=== PATIENT | female | born 1955 | race Caucasian/White ===

== ENCOUNTER → 2020-04-02 10:03 | Outpatient (BNVA) | payer MEDICARE, OTHER, MEDICAID, SELFPAY | PROVIDERS: PCP Internal Medicine; Visit Provider Hospitalist | DX: J43.2 Centrilobular emphysema (principal); R91.8 Other nonspecific abnormal finding of lung field; F17.200 Nicotine dependence, unspecified, uncomplicated | CPT/HCPCS: 99212 ==

== ENCOUNTER 2020-04-16 09:49 | Outpatient (REF) | payer MEDICARE, OTHER, MEDICAID, SELFPAY ==
--- NOTE | 2020-04-16 11:38 | PFT_ITS ---
Forced vital capacity moderately reduced. FEV1 and QQO79-96 are normal. MVV moderately reduced. Post bronchodilator therapy, there is a slight increase in VEE82-15. No other significant change. Total lung capacity is slightly decreased. Residual volume moderately decreased. Diffusion capacity also moderately decreased. CONCLUSION: Mild to moderate degree of restrictive pulmonary disorder. No definite obstructive airway disorder. Diffusion capacity is moderately decreased, probably due to restrictive disorder and some technical reason. Clinical correlation recommended. MD SANDRA Tan/MODL / [id number]
== END 2020-04-16 09:50 | disposition home or self-care (01) ==
LOC: HO.RESP 09:49
PROVIDERS: Visit Provider Hospitalist
DX: J44.9 Chronic obstructive pulmonary disease, unspecified (principal)
CPT/HCPCS: 94060; 94727; 94729

== ENCOUNTER → 2020-07-03 09:30 | Outpatient (BNVA) | payer MEDICARE, OTHER, MEDICAID, SELFPAY | PROVIDERS: PCP Internal Medicine; Visit Provider Hospitalist | DX: J43.2 Centrilobular emphysema (principal); J98.4 Other disorders of lung; R91.8 Other nonspecific abnormal finding of lung field; F17.200 Nicotine dependence, unspecified, uncomplicated; Z71.6 Tobacco abuse counseling; Z79.899 Other long term (current) drug therapy; Z79.51 Long term (current) use of inhaled steroids | CPT/HCPCS: 99212 ==

== ENCOUNTER → 2020-09-18 10:34 | Outpatient (BNVA) | payer MEDICARE, OTHER, MEDICAID, SELFPAY | PROVIDERS: PCP Internal Medicine; Visit Provider Hospitalist | DX: J98.4 Other disorders of lung (principal); J44.9 Chronic obstructive pulmonary disease, unspecified; R91.8 Other nonspecific abnormal finding of lung field; F17.200 Nicotine dependence, unspecified, uncomplicated | CPT/HCPCS: 99212 ==

== ENCOUNTER 2021-05-27 10:38 | Outpatient (REF) | payer MEDICARE, MEDICAID, SELFPAY ==
[2021-05-27 11:49] LABS: MANUAL DIFF FLAG NO
[2021-05-27 12:09] LABS: Basophils Percent Auto 0.4 % (0-2); Eosinophils Absolute Auto 0.2 X10*3/uL (0.0-0.4); Eosinophils Percent Auto 1.7 % (0-4); Hematocrit 37.7 % (37.0-47.0); Imm Gran Abs Auto 0.04 X10*3/uL (0.00-0.03); Imm Gran Pct Auto 0.4 % (0.0-0.4); Lymphocytes Absolute Auto 4.4 X10*3/uL (1.2-4.9); Lymphocytes Percent Auto 40.1 % (20-40); Mean Corpuscular HGB Conc 31.8 g/dl (31.0-35.0); Mean Corpuscular Hemoglobin 30.1 pg (27.0-33.0); Mean Corpuscular Volume 94.5 fL (80.0-98.0); Mean Platelet Volume 10.9 fL (9.4-12.3); Monocytes Absolute Auto 0.4 X10*3/uL (0.1-1.2); Neutrophils Absolute Auto 5.8 x10*3/uL (2.0-8.3); Neutrophils Percent Auto 53.4 % (45-73); Platelet Count 276 X10*3/uL (160-400); Red Blood Count 3.99 X10*6/uL (4.20-5.50); Red Cell Distribution Width 14.3 % (11.0-16.0); White Blood Count 10.9 X10*3/uL (4.8-10.8)
[2021-05-27 12:39] LABS: Troponin-I High Sensitivity < 3.5 ng/L (<3.5-17.0)
[2021-05-27 12:54] LABS: Anion Gap 14 (12-20); Blood Urea Nitrogen 20 mg/dL (9-16); Calcium 9.8 mg/dL (8.4-10.2); Carbon Dioxide 26 mmol/L (22-29); Chloride 108 mmol/L (96-108); Estimated Glomerular Filt Rate 44; Glucose Random 157 mg/dL (60-115); Potassium 4.7 mmol/L (3.3-5.1); Sodium 143 mmol/L (135-145)
[2021-05-27 13:44] LABS: Erythrocyte Sedimentation Rate 38 MM/HR (0-20)
[2021-05-28 10:22] LABS: Immunoglobulin E 184 kU/L (<OR=114)
[2021-06-02 04:07] LABS: SARS COV2 IgG Negative (Negative)
== END 2021-05-27 10:39 | disposition home or self-care (01) ==
LOC: HO.LAB 10:38
PROVIDERS: PCP Internal Medicine; Visit Provider Hospitalist
DX: R07.9 Chest pain, unspecified (principal); J44.9 Chronic obstructive pulmonary disease, unspecified; R91.8 Other nonspecific abnormal finding of lung field; J98.4 Other disorders of lung; F17.200 Nicotine dependence, unspecified, uncomplicated; Z71.6 Tobacco abuse counseling; Z20.822 Contact with and (suspected) exposure to COVID-19
CPT/HCPCS: 36415; 80048; 82785; 84484; 85025; 85652; 86769; 99212

== ENCOUNTER → 2021-09-08 15:04 | Outpatient (BNVA) | payer MEDICARE, MEDICAID, SELFPAY | PROVIDERS: PCP Internal Medicine; Visit Provider Hospitalist | DX: J44.9 Chronic obstructive pulmonary disease, unspecified (principal); U07.1 COVID-19; J98.4 Other disorders of lung; R19.8 Other specified symptoms and signs involving the digestive system and abdomen; F17.200 Nicotine dependence, unspecified, uncomplicated | CPT/HCPCS: Q3014 ==

== ENCOUNTER → 2021-11-12 11:21 | Outpatient (BNVA) | payer MEDICARE, OTHER, MEDICAID, SELFPAY | PROVIDERS: PCP Internal Medicine; Visit Provider Hospitalist | DX: J44.9 Chronic obstructive pulmonary disease, unspecified (principal); J98.4 Other disorders of lung; R91.8 Other nonspecific abnormal finding of lung field; F17.200 Nicotine dependence, unspecified, uncomplicated; Z86.16 Personal history of COVID-19; Z79.899 Other long term (current) drug therapy | CPT/HCPCS: 99212 ==

== ENCOUNTER 2022-01-14 13:49 | Outpatient (REF) | payer MEDICARE, OTHER, MEDICAID, SELFPAY ==
--- NOTE | ~2022-01-14 | XR_ITS ---
EXAMINATION: XR CHEST CLINICAL INFORMATION: J40 - Bronchitis, not specified as acute or chronic COMPARISON: None TECHNIQUE: 2 views of the chest were obtained. FINDINGS: There is mild coarsening of the bronchiolar markings consistent with the clinical history bronchitis. No hyperinflation, airspace consolidation, or groundglass opacity. The costophrenic sulci are clear. No effusion. Heart size normal. Vascularity normal. The hilar and mediastinal contours are unremarkable. There is no visible acute bony abnormality. There is been prior anterior cervical fusion with compression plate and screws. XR/XR chest 2V IMPRESSION: 1. Mild coarsening bronchiolar markings consistent with clinical history bronchitis. 2. No airspace consolidation or groundglass opacity.
== END 2022-01-14 13:50 | disposition home or self-care (01) ==
LOC: HO.XRAY 13:49
PROVIDERS: PCP Internal Medicine; Visit Provider Internal Medicine
DX: J44.1 Chronic obstructive pulmonary disease with (acute) exacerbation (principal); J40 Bronchitis, not specified as acute or chronic; F17.210 Nicotine dependence, cigarettes, uncomplicated; G47.33 Obstructive sleep apnea (adult) (pediatric); E66.9 Obesity, unspecified; Z79.2 Long term (current) use of antibiotics; Z79.899 Other long term (current) drug therapy
CPT/HCPCS: 71046; 99212

== ENCOUNTER → 2022-01-22 10:24 | Outpatient (BNVA) | payer MEDICARE, OTHER, MEDICAID, SELFPAY | PROVIDERS: PCP Internal Medicine; Visit Provider Hospitalist | DX: J40 Bronchitis, not specified as acute or chronic (principal); J44.1 Chronic obstructive pulmonary disease with (acute) exacerbation; J01.90 Acute sinusitis, unspecified; F17.200 Nicotine dependence, unspecified, uncomplicated | CPT/HCPCS: 99212 ==

== ENCOUNTER → 2022-03-23 09:49 | Outpatient (BNVA) | payer MEDICARE, OTHER, MEDICAID, SELFPAY | PROVIDERS: PCP Internal Medicine; Visit Provider Hospitalist | DX: J44.9 Chronic obstructive pulmonary disease, unspecified (principal); R91.8 Other nonspecific abnormal finding of lung field; F17.210 Nicotine dependence, cigarettes, uncomplicated | CPT/HCPCS: 99212 ==

== ENCOUNTER → 2022-06-23 09:45 | Outpatient (BNVA) | payer MEDICARE, OTHER, MEDICAID, SELFPAY | PROVIDERS: PCP Internal Medicine; Visit Provider Hospitalist | DX: J44.9 Chronic obstructive pulmonary disease, unspecified (principal); R91.8 Other nonspecific abnormal finding of lung field; G47.33 Obstructive sleep apnea (adult) (pediatric); F17.210 Nicotine dependence, cigarettes, uncomplicated | CPT/HCPCS: 99212 ==

== ENCOUNTER → 2022-07-07 13:59 | Outpatient (REF) | payer MEDICARE, OTHER, MEDICAID, SELFPAY | LOC: HO.SL 13:59 | PROVIDERS: PCP Internal Medicine; Visit Provider Hospitalist | DX: G47.33 Obstructive sleep apnea (adult) (pediatric) (principal) | CPT/HCPCS: 95806 ==

== ENCOUNTER 2022-09-07 10:48 | Outpatient (REF) | payer MEDICARE, OTHER, MEDICAID, SELFPAY ==
--- NOTE | ~2022-09-07 | XR_ITS ---
EXAMINATION: XR CHEST CLINICAL INFORMATION: Bronchitis COMPARISON: None available. TECHNIQUE: 2 views of the chest were obtained. FINDINGS: The cardiac and mediastinal contours are normal. The lungs are clear. No pleural effusion or pneumothorax. Postsurgical changes to the cervical spine. Mild degenerative changes of the thoracic spine. XR/XR chest 2V IMPRESSION: No evidence for acute disease in the chest.
== END 2022-09-07 10:49 | disposition home or self-care (01) ==
LOC: HO.XRAY 10:48
PROVIDERS: PCP Internal Medicine; Visit Provider Hospitalist
DX: J40 Bronchitis, not specified as acute or chronic (principal)
CPT/HCPCS: 71046

== ENCOUNTER → 2022-09-22 13:46 | Outpatient (BNVA) | payer MEDICARE, OTHER, MEDICAID, SELFPAY | PROVIDERS: PCP Internal Medicine; Visit Provider Hospitalist | DX: J44.9 Chronic obstructive pulmonary disease, unspecified (principal); R91.8 Other nonspecific abnormal finding of lung field; G47.33 Obstructive sleep apnea (adult) (pediatric); F17.210 Nicotine dependence, cigarettes, uncomplicated; Z79.899 Other long term (current) drug therapy | CPT/HCPCS: 99212 ==

== ENCOUNTER 2023-03-05 10:51 | Outpatient (AMB) | payer MEDICARE, OTHER, MEDICAID, SELFPAY ==
--- NOTE | 2023-03-05 10:53 | A.OFFVIS_ITS ---
Intake Vital Signs 03/05/23 10:58 Height 5 ft 4 in Weight 178 lb BMI 30.6 BP 110/60 Blood Pressure Location Lt brachial Position Sitting Pulse 72 Pulse Source Pulse Oximeter Pulse Oximetry (%) 98 Oxygen Delivery Method Room Air Intake Visit Reasons: COPD Intake Note: pt is here for follow up and is coughing and wheezing. Allergies acetaminophen [Tylenol] Allergy (Severe, Verified 03/05/23 11:01) Rash and Hives oxycodone [Percocet] Allergy (Severe, Verified 03/05/23 11:01) Rash and Hives penicillin V Allergy (Severe, Verified 03/05/23 11:01) Rash and Hives Sulfa (Sulfonamide Antibiotics) Allergy (Severe, Verified 03/05/23 11:01) Rash and Hives trazodone Allergy (Severe, Verified 03/05/23 11:01) Rash and Hives Erythromycin Allergy (Severe, Uncoded 03/05/23 11:01) Rash and Hives latex Allergy (Severe, Uncoded 03/05/23 11:01) Rash and Hives Proventil Allergy (Severe, Uncoded 03/05/23 11:01) Rash and Hives HPI HPI Comments History of Present Illness Details The patient is a 67 year-old woman with known COPD and tobacco dependency. She continues to smoke and actually she has been smoking more. She is very depressed. She feels like it inhalers are not working for her. Although she notes that the smoking is only making it worse. The patient is also reluctant to use any oxygen. She has been complaining of a productive cough and multiple exacerbations her breathing she has chronic bronchitis with significant exacerbations in prednisone. The patient however has a bad reaction to prednisone. Therefore she will be a good candidate for Daliresp. We will start the Daliresp every other day and hopefully then she can take a daily when she gets used to it. She did move in with her son and kline she is there she can't smoke. Since she stop smoking her respiratory status has improved. She still has a cough off and on. More recently she did fall down the stairs and she fractured her wrist on her right side. She is currently has a cast down. She is not sure if she is going to need surgery. She is asking for a nicotine patch to help with withdrawals. She also was prescribed Daliresp as she has good candidate, but, she was not at the pharmacy. Therefore I recent a prescription and also gave her a paper prescription just in case.. 03/23/2022 the patient is here for a pulmonary follow-up visit. Overall she is getting better. She had tough viral bronchitis and likely bronchiolitis after her son's wedding. The last for several weeks. She did require multiple courses of prednisone and also antibiotics. Finally she is better although she still has a cough. The cough tends to be croupy in nature. Sometimes she has a coughing spell is hard to break. She does have intermittent mucus production. Unfortunately she continues to smoke cigarettes and she understands this will result in chronic bronchitis. She continues use the Trelegy with good effect. She is also using the Daliresp. That also has been helpful. She has been working on weight loss. She is participating in the lung cancer screening program. Her last CT scan was the fall. This was done at [facility]. She was told that everything was stable. Scheduled for another CT scan in a year's time. We will request a CT scan from [facility]. 06/23/2022 the patient is here for a pulmonary follow-up visit. She was recently hospitalized in psychiatry at [facility] after a question suicidal attempt. The patient was found unresponsive after taking sleeping pills. Now she is back home. The patient does complaint of daytime drowsiness. She has hard time sleeping. She did have sleep apnea before and she had been on CPAP. However she no longer has a CPAP available. The patient has not had a sleep study many years. She continues to be symptomatic with daytime drowsiness with an Trezevant score of 11/24. Therefore I will request a repeat sleep study hope to get her back on CPAP therapy and help her with her sleep-wake cycle. She continues use her medications. Unfortunately she also continues to smoke cigarettes. She responds well to Trelegy. This morning she woke up and she felt some chest tightness and wheezing. She has not use her Trelegy as of yet. She will take it when she goes home. She is also participating in the lung cancer screening program. Her last CT scan at [facility] demonstrating stable pulmonary nodules. 09/22/2022 the patient is here for a pulmonary follow-up visit. The patient is finally feeling better. She had pneumonia and required a long course of prednisone. The patient had a follow-up chest x-ray which I personally reviewed without any evidence of any airspace disease which is reassuring. The patient is back to her baseline. She continues on the Trelegy. She has been monitoring her weight and her diet. She is doing very well good losing weight. She does have daytime drowsiness. She has an elevated Trezevant score 11/24. We did review her home sleep study demonstrating an AHI of 22 suggestive of moderate to severe sleep apnea. The patient needs to go back on CPAP. The patient is agreeable at this time and I will send a script for CPAP to a local [employer]. 03/05/2023 the patient is here for a pulmonary follow-up visit. The patient has been having difficulties with her sleep. Has significant daytime drowsiness. Her Trezevant score significantly elevated 11/24. Apparently she had been on CPAP before but her CPAP broke beyond repair. Therefore she has not been able to use it. We have requested a replacement machine during the last visit but the patient did not receive any replacement. I did reach out to the [employer] company and they will see what they can do. The patient needs to start her CPAP therapy specially with her increased cardiovascular risk factors. She continues use her Trelegy inhaler which she is been affecting beneficial. The patient has not required any prednisone. She does use her rescue inhaler on a daily basis however. She also has chest congestion. Ksga-fo-oawvjslv severity. Unfortunately the patient continues to smoke cigarettes. She is participating in the lung cancer screening program. [facility] Medical History (Updated 06/23/22 @ 10:08 by Felipe Lopez MD) SRIDEVI (obstructive sleep apnea) Bronchitis COPD exacerbation Tobacco dependence Chronic restrictive lung disease Asthma-COPD overlap syndrome Asthma Tobacco dependence Pulmonary nodules COPD (chronic obstructive pulmonary disease) Family History (Updated 04/02/20 @ 20:41 by Felipe Lopez MD) Other Asthma Social History (Updated 03/05/23 @ 11:02 by FABRIZIO Gamino) Patient Tobacco Use Status: Current everyday Tobacco user Cigarette Packs Per Day: 0.5 Cigarettes Per Day: 3 Years Smoked: 30 years Review of Systems Const Reports daytime sleepiness, Reports difficulty sleeping, Denies fever(s), Denies night sweats and Reports snoring Eyes Denies change in vision ENT Denies change in voice, Denies lip swelling, Denies mouth pain, Reports nasal congestion (MILD), Reports nasal discharge (MILD), Denies neck pain, Denies sinus pain and Denies tongue swelling Card Denies chest pain, Denies irregular heart rhythm, Denies leg edema and Denies dyspnea Resp Denies chest congestion, Reports cough, Denies hemoptysis, Denies dyspnea, Reports snoring and Denies wheezing GI Denies abdominal pain Musc Denies no additional complaints and Denies neck pain Neuro Denies Neuro-related abnormal movements Psych Reports as per HPI Alvaro/Lymph Denies easy bleeding and Denies lymphadenopathy Aller/Immun Denies lip swelling, Denies tongue swelling and Denies wheezing Physical Exam Vital Signs: Last Vital Signs Pulse 72 03/05/23 10:58 BP 110/60 03/05/23 10:58 Pulse Ox 98 03/05/23 10:58 Oxygen Delivery Method Room Air 03/05/23 10:58 BMI result Body Mass Index 30.6 Const General: alert Orientation/consciousness: patient oriented x3 Neck Neck: Yes normal visual inspection, Yes full ROM and Yes no lymphadenopathy Chest Chest palpation & inspection: normal inspection of the chest Resp Effort & Inspection: normal respiratory effort Auscultation: no rhonchi, no wheezes and diminished lung sounds Cardio Rate: regular rate Rhythm: regular rhythm Heart sounds: S1 normal heart sound present and S2 normal heart sound present GI Palpation (GI): Soft to palpation and nontender Auscultation: normal bowel sounds Skin General skin exam: rashes and/or lesions noted Neuro General: patient oriented x3 Office Procedures Flu Questionnaire Does the patient have a severe egg allergy?: No Does the patient have severe life threatening allergies?: No Does the patient have a fever or illness today?: No Has the patient ever had Guillain-Wallace Syndrome?: No Has the patient ever had any past reaction to a flu shot?: No Immunizations flu vacc [id number] 6mos up(PF) 60 mcg(15 mcgx4)/0.5 mL IM syringe Performing Provider: Felipe Lopez MD Performing Location: [facility] Administered by: Lala Guajardo LPN on 03/05/23 11:20 Dose Route Admin Location Dispensed Lot Number Expiration Date NDC Installation Specialist 0.5 mL IM Right Deltoid 0.5 mL [id number] 10/03/23 56933-176-86 [employer] VIS Given Date VIS Provided VIS Publication Date 03/05/23 Single Vaccine 20 Eligibility Eligibility Date Funding Source Not VF Eligible 03/05/23 Private Assessment & Plan Assessment & Plan (1) Asthma-COPD overlap syndrome: Code(s): J44.9 - Chronic obstructive pulmonary disease, unspecified (2) Pulmonary nodules: Code(s): R91.8 - Other nonspecific abnormal finding of lung field (3) SRIDEVI (obstructive sleep apnea): Code(s): G47.33 - Obstructive sleep apnea (adult) (pediatric) (4) Tobacco dependence: Code(s): F17.200 - Nicotine dependence, unspecified, uncomplicated Plan Tobacco cessation continue Trelegy continue xopenex nebs BID continue Daliresp benzonates as needed for cough start APAP, needs a replacement APAP. Her machine is broken beyond repeair. F/U 4-6 months Orders: Orders Influenza [id number] Immunization 03/05/23 J44.9 - Chronic obstructive pulmonary disease, unspecified Quality Reporting (2019) Adult ([facility] 138/05/27/68) Smoking risk assessment performed?: Yes Patient Tobacco Use Status: Current everyday Tobacco user Coding Level of Care Code Est Pt Level 4 (61746) Diagnoses Asthma-COPD overlap syndrome J44.9 Pulmonary nodules R91.8 SRIDEVI (obstructive sleep apnea) G47.33 Tobacco dependence F17.200 Time Spent (min) 17
[2023-03-05 10:58] VITALS: BP 110/60; PULSE 72; O2SAT 98; BMI 30.6
== END 2023-03-05 11:18 | disposition home or self-care (01) ==
PROVIDERS: PCP Internal Medicine; Visit Provider Hospitalist
DX: J44.9 Chronic obstructive pulmonary disease, unspecified (principal); R91.8 Other nonspecific abnormal finding of lung field; G47.33 Obstructive sleep apnea (adult) (pediatric); F17.200 Nicotine dependence, unspecified, uncomplicated
CPT/HCPCS: 99214

== ENCOUNTER → 2023-03-05 10:51 | Outpatient (BNVA) | payer MEDICARE, OTHER, MEDICAID, SELFPAY | PROVIDERS: PCP Internal Medicine; Visit Provider Hospitalist | DX: Z23 Encounter for immunization (principal); J44.9 Chronic obstructive pulmonary disease, unspecified; G47.33 Obstructive sleep apnea (adult) (pediatric); R91.8 Other nonspecific abnormal finding of lung field; F17.210 Nicotine dependence, cigarettes, uncomplicated | CPT/HCPCS: 90471; 90686; 99212 ==

== ENCOUNTER 2023-04-02 12:44 | Outpatient (REF) | payer MEDICARE, OTHER, MEDICAID, SELFPAY ==
--- NOTE | ~2023-04-02 | XR_ITS ---
EXAMINATION: XR CHEST CLINICAL INFORMATION: Pleurodynia. COMPARISON: September 07, 2022 TECHNIQUE: 2 views of the chest were obtained. FINDINGS: There is no gross pneumothorax. Heart size is normal. No pleural effusion. Increased retrocardiac opacities are concerning for pneumonia. Fixation hardware redemonstrated in the partially imaged cervical spine. XR/XR chest 2V IMPRESSION: Increased retrocardiac opacities are concerning for pneumonia. Recommend follow-up imaging in 4-6 weeks to confirm resolution and exclude underlying pathology. This study was presented today April 2023 at 9:40 AM for interpretation. PSA staff will provide results to referring provider at this time.
[2023-04-02 14:46] LABS: Influenza A PCR NEGATIVE (Negative); Influenza B PCR NEGATIVE (Negative); Resp Syncy Virus RNA Qual PCR NEGATIVE (Negative); SARS COV2 PCR INHOUSE NEGATIVE (Negative)
== END 2023-04-02 12:45 | disposition home or self-care (01) ==
LOC: HO.XRAY 12:44
PROVIDERS: PCP Internal Medicine; Visit Provider Hospitalist
DX: Z11.52 Encounter for screening for COVID-19 (principal); R07.81 Pleurodynia; J40 Bronchitis, not specified as acute or chronic; Z20.822 Contact with and (suspected) exposure to COVID-19; J18.0 Bronchopneumonia, unspecified organism; J44.9 Chronic obstructive pulmonary disease, unspecified; R91.8 Other nonspecific abnormal finding of lung field
CPT/HCPCS: 0241U; 71046; 99212

== ENCOUNTER 2023-04-02 12:44 | Outpatient (AMB) | payer MEDICARE, OTHER, MEDICAID, SELFPAY ==
--- NOTE | 2023-04-02 12:55 | MHC.OFFVIS ---
Intake Vital Signs 04/02/23 12:57 Height 5 ft 4 in Weight 183 lb BMI 31.4 BP 132/70 Blood Pressure Location Rt brachial Position Sitting Pulse 89 Pulse Source Pulse Oximeter Pulse Oximetry (%) 99 Oxygen Delivery Method Room Air Intake Visit Reasons: cough and shortness of breath Apartment Assistant Manager Required: No Allergies acetaminophen [Tylenol] Allergy (Severe, Verified 04/02/23 13:00) Rash and Hives oxycodone [Percocet] Allergy (Severe, Verified 04/02/23 13:00) Rash and Hives penicillin V Allergy (Severe, Verified 04/02/23 13:00) Rash and Hives Sulfa (Sulfonamide Antibiotics) Allergy (Severe, Verified 04/02/23 13:00) Rash and Hives trazodone Allergy (Severe, Verified 04/02/23 13:00) Rash and Hives Erythromycin Allergy (Severe, Uncoded 04/02/23 13:00) Rash and Hives latex Allergy (Severe, Uncoded 04/02/23 13:00) Rash and Hives Proventil Allergy (Severe, Uncoded 04/02/23 13:00) Rash and Hives HPI HPI Comments History of Present Illness Details The patient is a 67 year-old woman with known COPD and tobacco dependency. She continues to smoke and actually she has been smoking more. She is very depressed. She feels like it inhalers are not working for her. Although she notes that the smoking is only making it worse. The patient is also reluctant to use any oxygen. She has been complaining of a productive cough and multiple exacerbations her breathing she has chronic bronchitis with significant exacerbations in prednisone. The patient however has a bad reaction to prednisone. Therefore she will be a good candidate for Daliresp. We will start the Daliresp every other day and hopefully then she can take a daily when she gets used to it. She did move in with her son and kline she is there she can't smoke. Since she stop smoking her respiratory status has improved. She still has a cough off and on. More recently she did fall down the stairs and she fractured her wrist on her right side. She is currently has a cast down. She is not sure if she is going to need surgery. She is asking for a nicotine patch to help with withdrawals. She also was prescribed Daliresp as she has good candidate, but, she was not at the pharmacy. Therefore I recent a prescription and also gave her a paper prescription just in case.. 03/23/2022 the patient is here for a pulmonary follow-up visit. Overall she is getting better. She had tough viral bronchitis and likely bronchiolitis after her son's wedding. The last for several weeks. She did require multiple courses of prednisone and also antibiotics. Finally she is better although she still has a cough. The cough tends to be croupy in nature. Sometimes she has a coughing spell is hard to break. She does have intermittent mucus production. Unfortunately she continues to smoke cigarettes and she understands this will result in chronic bronchitis. She continues use the Trelegy with good effect. She is also using the Daliresp. That also has been helpful. She has been working on weight loss. She is participating in the lung cancer screening program. Her last CT scan was the fall. This was done at [facility]. She was told that everything was stable. Scheduled for another CT scan in a year's time. We will request a CT scan from [facility]. 06/23/2022 the patient is here for a pulmonary follow-up visit. She was recently hospitalized in psychiatry at [facility] after a question suicidal attempt. The patient was found unresponsive after taking sleeping pills. Now she is back home. The patient does complaint of daytime drowsiness. She has hard time sleeping. She did have sleep apnea before and she had been on CPAP. However she no longer has a CPAP available. The patient has not had a sleep study many years. She continues to be symptomatic with daytime drowsiness with an [place] score of 11/24. Therefore I will request a repeat sleep study hope to get her back on CPAP therapy and help her with her sleep-wake cycle. She continues use her medications. Unfortunately she also continues to smoke cigarettes. She responds well to Trelegy. This morning she woke up and she felt some chest tightness and wheezing. She has not use her Trelegy as of yet. She will take it when she goes home. She is also participating in the lung cancer screening program. Her last CT scan at [facility] demonstrating stable pulmonary nodules. 09/22/2022 the patient is here for a pulmonary follow-up visit. The patient is finally feeling better. She had pneumonia and required a long course of prednisone. The patient had a follow-up chest x-ray which I personally reviewed without any evidence of any airspace disease which is reassuring. The patient is back to her baseline. She continues on the Trelegy. She has been monitoring her weight and her diet. She is doing very well good losing weight. She does have daytime drowsiness. She has an elevated [place] score 11/24. We did review her home sleep study demonstrating an AHI of 22 suggestive of moderate to severe sleep apnea. The patient needs to go back on CPAP. The patient is agreeable at this time and I will send a script for CPAP to a local [employer]. 03/05/2023 the patient is here for a pulmonary follow-up visit. The patient has been having difficulties with her sleep. Has significant daytime drowsiness. Her [place] score significantly elevated 11/24. Apparently she had been on CPAP before but her CPAP broke beyond repair. Therefore she has not been able to use it. We have requested a replacement machine during the last visit but the patient did not receive any replacement. I did reach out to the [employer] company and they will see what they can do. The patient needs to start her CPAP therapy specially with her increased cardiovascular risk factors. She continues use her Trelegy inhaler which she is been affecting beneficial. The patient has not required any prednisone. She does use her rescue inhaler on a daily basis however. She also has chest congestion. Gyss-vb-ybmkjhct severity. Unfortunately the patient continues to smoke cigarettes. She is participating in the lung cancer screening program. 04/02/2023 The patient is here for a sick visit. + sick contacts. Has been having worsening cough, productive in nature, moderate in severity. Having worsening chest tightness and wheezing. Not responding to her current therapy. Does have some crackles on the left base suggesting pneumonia. She andrea have a CXR today. She completed the prednioane, wheezing is better. [facility] Medical History (Updated 04/05/23 @ 19:18 by Felipe Lopez MD) SRIDEVI (obstructive sleep apnea) Bronchitis COPD exacerbation Tobacco dependence Chronic restrictive lung disease Asthma-COPD overlap syndrome Asthma Tobacco dependence Pulmonary nodules COPD (chronic obstructive pulmonary disease) Family History (Updated 04/02/20 @ 20:41 by Felipe Lopez MD) Other Asthma Social History (Updated 03/05/23 @ 11:02 by FABRIZIO Gamino) Patient Tobacco Use Status: Current everyday Tobacco user Cigarette Packs Per Day: 0.5 Cigarettes Per Day: 3 Years Smoked: 30 years Review of Systems Const Reports chills, Reports difficulty sleeping, Reports fatigue, Denies fever(s), Denies night sweats and Reports snoring Eyes Denies change in vision ENT Denies change in voice, Denies lip swelling, Denies mouth pain, Reports nasal congestion (MILD), Reports nasal discharge (MILD), Denies neck pain, Denies sinus pain and Denies tongue swelling Card Denies chest pain, Denies irregular heart rhythm, Denies leg edema and Denies dyspnea Resp Reports change in phlegm color, Reports chest congestion, Reports cough, Denies hemoptysis, Denies dyspnea, Reports snoring and Reports wheezing GI Denies abdominal pain Musc Denies no additional complaints and Denies neck pain Neuro Denies Neuro-related abnormal movements Psych Reports as per HPI Endo Reports fatigue Alvaro/Lymph Denies easy bleeding and Denies lymphadenopathy Aller/Immun Denies lip swelling, Denies tongue swelling and Reports wheezing Physical Exam Vital Signs: Last Vital Signs Pulse 89 04/02/23 12:57 BP 132/70 04/02/23 12:57 Pulse Ox 99 04/02/23 12:57 Oxygen Delivery Method Room Air 04/02/23 12:57 BMI result Body Mass Index 31.4 Const General: alert Orientation/consciousness: patient oriented x3 Neck Neck: Yes normal visual inspection, Yes full ROM and Yes no lymphadenopathy Chest Chest palpation & inspection: normal inspection of the chest Resp Effort & Inspection: normal respiratory effort Auscultation: crackles, no rhonchi, no wheezes and diminished lung sounds Cardio Rate: regular rate Rhythm: regular rhythm Heart sounds: S1 normal heart sound present and S2 normal heart sound present GI Palpation (GI): Soft to palpation and nontender Auscultation: normal bowel sounds Skin General skin exam: rashes and/or lesions noted Neuro General: patient oriented x3 Assessment & Plan Assessment & Plan (1) Bronchopneumonia: Code(s): J18.0 - Bronchopneumonia, unspecified organism (2) Asthma-COPD overlap syndrome: Code(s): J44.9 - Chronic obstructive pulmonary disease, unspecified (3) Pulmonary nodules: Code(s): R91.8 - Other nonspecific abnormal finding of lung field (4) SRIDEVI (obstructive sleep apnea): Code(s): G47.33 - Obstructive sleep apnea (adult) (pediatric) (5) Tobacco dependence: Code(s): F17.200 - Nicotine dependence, unspecified, uncomplicated Plan start Vantin/doxycycline Prednisone taper if no better CXR Swab FLU/RSV/SARS negative Tobacco cessation continue Trelegy continue xopenex nebs BID continue Daliresp benzonates as needed for cough start APAP, needs a replacement APAP. Her machine is broken beyond repeair. F/U 4-6 months Orders: Orders SARS-CoV2/FLU/RSV 04/02/23 J40 - Bronchitis, not specified as acute or chronic, R07.81 - Pleurodynia XR chest 2V 04/02/23 R07.81 - Pleurodynia Medications: New doxycycline hyclate 100 mg PO BID 10 days 20 caps 0RF prednisone PO daily; Take 2 tabs daily x 5 days, then 1 tablet daily x 5 days 10 days 15 tabs 0RF cefpodoxime must administer with a meal/food 200 mg PO BID 20 tabs 0RF Quality Reporting (2019) Adult ([facility] 138/05/27/68) Smoking risk assessment performed?: Yes Patient Tobacco Use Status: Current everyday Tobacco user Coding Level of Care Code Est Pt Level 4 (21880) Diagnoses Bronchopneumonia J18.0 Asthma-COPD overlap syndrome J44.9 Pulmonary nodules R91.8 SRIDEVI (obstructive sleep apnea) G47.33 Tobacco dependence F17.200 Time Spent (min) 17
[2023-04-02 12:57] VITALS: BP 132/70; PULSE 89; O2SAT 99; BMI 31.4
== END 2023-04-02 13:35 | disposition home or self-care (01) ==
PROVIDERS: PCP Internal Medicine; Visit Provider Hospitalist
DX: J18.0 Bronchopneumonia, unspecified organism (principal); J44.9 Chronic obstructive pulmonary disease, unspecified; R91.8 Other nonspecific abnormal finding of lung field; G47.33 Obstructive sleep apnea (adult) (pediatric); F17.200 Nicotine dependence, unspecified, uncomplicated
CPT/HCPCS: 99214

== ENCOUNTER 2023-05-12 08:57 | Outpatient (REF) | payer MEDICARE, OTHER, MEDICAID, SELFPAY ==
--- NOTE | ~2023-05-12 | XR_ITS ---
EXAMINATION: XR CHEST CLINICAL INFORMATION: Bronchopneumonia, unspecified organism COMPARISON: Chest 04/02/2023 TECHNIQUE: 2 views of the chest were obtained. FINDINGS: No significant abnormality is noted involving the heart, lungs, mediastinum or soft tissues. Fixation hardware is seen in these mid and lower cervical spine. XR/XR chest 2V IMPRESSION: No acute cardiopulmonary disease.
== END 2023-05-12 08:58 | disposition home or self-care (01) ==
LOC: HO.XRAY 08:57
PROVIDERS: Visit Provider Hospitalist
DX: J18.0 Bronchopneumonia, unspecified organism (principal)
CPT/HCPCS: 71046

== ENCOUNTER 2023-07-05 10:55 | Outpatient (AMB) | payer MEDICARE, OTHER, MEDICAID, SELFPAY ==
[2023-07-05 10:58] VITALS: PULSE 82; O2SAT 98; BMI 31.6
--- NOTE | 2023-07-05 10:58 | A.OFFVIS_ITS ---
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 Allergies acetaminophen [Tylenol] Allergy (Severe, Verified 07/05/23 11:00) Rash and Hives oxycodone [Percocet] Allergy (Severe, Verified 07/05/23 11:00) Rash and Hives penicillin V Allergy (Severe, Verified 07/05/23 11:00) Rash and Hives Sulfa (Sulfonamide Antibiotics) Allergy (Severe, Verified 07/05/23 11:00) Rash and Hives trazodone Allergy (Severe, Verified 07/05/23 11:00) Rash and Hives Erythromycin Allergy (Severe, Uncoded 07/05/23 11:00) Rash and Hives latex Allergy (Severe, Uncoded 07/05/23 11:00) Rash and Hives Proventil Allergy (Severe, Uncoded 07/05/23 11:00) Rash and Hives HPI HPI Comments History of Present Illness Details The patient is a 67 year-old woman with known COPD and tobacco dependency. She continues to smoke and actually she has been smoking more. She is very depressed. She feels like it inhalers are not working for her. Although she notes that the smoking is only making it worse. The patient is also reluctant to use any oxygen. She has been complaining of a productive cough and multiple exacerbations her breathing she has chronic bronchitis with significant exacerbations in prednisone. The patient however has a bad reaction to prednisone. Therefore she will be a good candidate for Daliresp. We will start the Daliresp every other day and hopefully then she can take a daily when she gets used to it. She did move in with her son and kline she is there she can't smoke. Since she stop smoking her respiratory status has improved. She still has a cough off and on. More recently she did fall down the stairs and she fractured her wrist on her right side. She is currently has a cast down. She is not sure if she is going to need surgery. She is asking for a nicotine patch to help with withdrawals. She also was prescribed Daliresp as she has good candidate, but, she was not at the pharmacy. Therefore I recent a prescription and also gave her a paper prescription just in case.. 03/23/2022 the patient is here for a pulmonary follow-up visit. Overall she is getting better. She had tough viral bronchitis and likely bronchiolitis after her son's wedding. The last for several weeks. She did require multiple courses of prednisone and also antibiotics. Finally she is better although she still has a cough. The cough tends to be croupy in nature. Sometimes she has a coughing spell is hard to break. She does have intermittent mucus production. Unfortunately she continues to smoke cigarettes and she understands this will result in chronic bronchitis. She continues use the Trelegy with good effect. She is also using the Daliresp. That also has been helpful. She has been working on weight loss. She is participating in the lung cancer screening program. Her last CT scan was the fall. This was done at [facility]. She was told that everything was stable. Scheduled for another CT scan in a year's time. We will request a CT scan from [facility]. 06/23/2022 the patient is here for a pulmonary follow-up visit. She was recently hospitalized in psychiatry at [facility] after a question suicidal attempt. The patient was found unresponsive after taking sleeping pills. Now she is back home. The patient does complaint of daytime drowsiness. She has hard time sleeping. She did have sleep apnea before and she had been on CPAP. However she no longer has a CPAP available. The patient has not had a sleep study many years. She continues to be symptomatic with daytime drowsiness with an [place] score of 11/24. Therefore I will request a repeat sleep study hope to get her back on CPAP therapy and help her with her sleep-wake cycle. She continues use her medications. Unfortunately she also continues to smoke cigarettes. She responds well to Trelegy. This morning she woke up and she felt some chest tightness and wheezing. She has not use her Trelegy as of yet. She will take it when she goes home. She is also participating in the lung cancer screening program. Her last CT scan at [facility] demonstrating stable pulmonary nodules. 09/22/2022 the patient is here for a pulmonary follow-up visit. The patient is finally feeling better. She had pneumonia and required a long course of prednisone. The patient had a follow-up chest x-ray which I personally reviewed without any evidence of any airspace disease which is reassuring. The patient is back to her baseline. She continues on the Trelegy. She has been monitoring her weight and her diet. She is doing very well good losing weight. She does have daytime drowsiness. She has an elevated [place] score 11/24. We did review her home sleep study demonstrating an AHI of 22 suggestive of moderate to severe sleep apnea. The patient needs to go back on CPAP. The patient is agreeable at this time and I will send a script for CPAP to a local [employer] company. 03/05/2023 the patient is here for a pulmonary follow-up visit. The patient has been having difficulties with her sleep. Has significant daytime drowsiness. Her [place] score significantly elevated 11/24. Apparently she had been on CPAP before but her CPAP broke beyond repair. Therefore she has not been able to use it. We have requested a replacement machine during the last visit but the patient did not receive any replacement. I did reach out to the [employer] company and they will see what they can do. The patient needs to start her CPAP therapy specially with her increased cardiovascular risk factors. She continues use her Trelegy inhaler which she is been affecting beneficial. The patient has not required any prednisone. She does use her rescue inhaler on a daily basis however. She also has chest congestion. [id number] severity. Unfortunately the patient continues to smoke cigarettes. She is participating in the lung cancer screening program. 07/05/2023 the patient is here for a pulmonary follow-up visit. The patient is feeling better from a respiratory status. She was treated for pneumonia. She completed the prednisone also couple antibiotics. She still complains of sinus congestion and postnasal drip. Sometimes she does have some degree of congestion that pulls in the back of the throat difficult to clear out. She has not using any nasal therapy right now. For her lungs she continues on the Trelegy. She has not had to use her rescue therapy. Unfortunately she continues to smoke cigarettes. The patient is participating in the lung cancer screening program at [facility]. She would like to stay there. She has not had a CAT scan more than a year. I did give her the number and also re- referred her to the [facility] lung cancer screening program. She knows to send me a report. Otherwise the patient follow-up in 4-6 months. [facility] Medical History (Updated 07/05/23 @ 11:11 by Felipe Lopez MD) Screening for lung cancer SRIDEVI (obstructive sleep apnea) Bronchitis COPD exacerbation Tobacco dependence Chronic restrictive lung disease Asthma-COPD overlap syndrome Asthma Tobacco dependence Pulmonary nodules COPD (chronic obstructive pulmonary disease) Family History (Updated 04/02/20 @ 20:41 by Felipe Lopez MD) Other Asthma Social History (Updated 03/05/23 @ 11:02 by Ioana Sarah Bridger) Patient Tobacco Use Status: Current everyday Tobacco user Cigarette Packs Per Day: 0.5 Cigarettes Per Day: 3 Years Smoked: 30 years Review of Systems Const Reports difficulty sleeping, Denies fever(s), Denies night sweats and Reports snoring Eyes Denies change in vision ENT Denies change in voice, Denies lip swelling, Denies mouth pain, Reports nasal congestion (MILD), Reports nasal discharge (MILD), Denies neck pain, Reports po st nasal drip, Denies sinus pain and Denies tongue swelling Card Denies chest pain, Denies irregular heart rhythm, Denies leg edema and Denies dyspnea Resp Reports chest congestion, Reports cough, Denies hemoptysis, Denies dyspnea, Reports snoring and Reports wheezing GI Denies abdominal pain Musc Denies no additional complaints and Denies neck pain Neuro Denies Neuro-related abnormal movements Psych Reports as per HPI Alvaro/Lymph Denies easy bleeding and Denies lymphadenopathy Aller/Immun Denies lip swelling, Denies tongue swelling and Reports wheezing Physical Exam Vital Signs: Last Vital Signs Pulse 82 07/05/23 10:58 Pulse Ox 98 07/05/23 10:58 Oxygen Delivery Method Room Air 07/05/23 10:58 BMI result Body Mass Index 31.6 Const General: alert Orientation/consciousness: patient oriented x3 Neck Neck: Yes normal visual inspection, Yes full ROM and Yes no lymphadenopathy Chest Chest palpation & inspection: normal inspection of the chest Resp Effort & Inspection: normal respiratory effort Auscultation: no wheezes and diminished lung sounds Cardio Rate: regular rate Rhythm: regular rhythm Heart sounds: S1 normal heart sound present and S2 normal heart sound present GI Palpation (GI): Soft to palpation and nontender Auscultation: normal bowel sounds Skin General skin exam: rashes and/or lesions noted Neuro General: patient oriented x3 Assessment & Plan Assessment & Plan (1) Asthma-COPD overlap syndrome: Code(s): J44.9 - Chronic obstructive pulmonary disease, unspecified (2) Pulmonary nodules: Code(s): R91.8 - Other nonspecific abnormal finding of lung field (3) SRIDEVI (obstructive sleep apnea): Code(s): G47.33 - Obstructive sleep apnea (adult) (pediatric) (4) Tobacco dependence: Code(s): F17.200 - Nicotine dependence, unspecified, uncomplicated Plan Tobacco cessation continue Trelegy continue xopenex nebs BID continue Daliresp benzonates as needed for cough APAP, needs a replacement APAP. Her machine is broken beyond repeair. Also needs a [id number] full face mask LDCT at [facility] Start Fluticasone nasal spray F/U 4-6 months Orders: Referrals Thoracic Surgery Referral Z12.2 - Encounter for screening for malignant neoplasm of respiratory organs Medications: New fluticasone propionate 50 mcg/actuation 2 sprays intranasal DAILY 30 days 15.8 mL 11RF J31.0 - Chronic rhinitis Quality Reporting (2019) Adult ([facility] 138/05/27/68) Smoking risk assessment performed?: Yes Patient Tobacco Use Status: Current everyday Tobacco user Coding Level of Care Code Est Pt Level 4 (94959) Diagnoses Asthma-COPD overlap syndrome J44.9 Pulmonary nodules R91.8 SRIDEVI (obstructive sleep apnea) G47.33 Tobacco dependence F17.200 Time Spent (min) 17
== END 2023-07-05 11:21 | disposition home or self-care (01) ==
PROVIDERS: PCP Internal Medicine; Visit Provider Hospitalist
DX: J44.9 Chronic obstructive pulmonary disease, unspecified (principal); R91.8 Other nonspecific abnormal finding of lung field; G47.33 Obstructive sleep apnea (adult) (pediatric); F17.200 Nicotine dependence, unspecified, uncomplicated
CPT/HCPCS: 99214

== ENCOUNTER → 2023-07-05 10:55 | Outpatient (BNVA) | payer MEDICARE, OTHER, MEDICAID, SELFPAY | PROVIDERS: PCP Internal Medicine; Visit Provider Hospitalist | DX: J44.9 Chronic obstructive pulmonary disease, unspecified (principal); R91.8 Other nonspecific abnormal finding of lung field; G47.33 Obstructive sleep apnea (adult) (pediatric); F17.210 Nicotine dependence, cigarettes, uncomplicated | CPT/HCPCS: 99212 ==

== ENCOUNTER 2023-11-05 09:16 | Outpatient (AMB) | payer MEDICARE, OTHER, MEDICAID, SELFPAY ==
--- NOTE | 2023-11-05 09:45 | MHC.OFFVIS ---
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 Allergies acetaminophen [Tylenol] Allergy (Severe, Verified 11/05/23 09:48) Rash and Hives oxycodone [Percocet] Allergy (Severe, Verified 11/05/23 09:48) Rash and Hives penicillin V Allergy (Severe, Verified 11/05/23 09:48) Rash and Hives Sulfa (Sulfonamide Antibiotics) Allergy (Severe, Verified 11/05/23 09:48) Rash and Hives trazodone Allergy (Severe, Verified 11/05/23 09:48) Rash and Hives Erythromycin Allergy (Severe, Uncoded 11/05/23 09:48) Rash and Hives latex Allergy (Severe, Uncoded 11/05/23 09:48) Rash and Hives Proventil Allergy (Severe, Uncoded 11/05/23 09:48) Rash and Hives HPI Comments Details: The patient is a 67 year-old woman with known COPD and tobacco dependency. She continues to smoke and actually she has been smoking more. She is very depressed. She feels like it inhalers are not working for her. Although she notes that the smoking is only making it worse. The patient is also reluctant to use any oxygen. She has been complaining of a productive cough and multiple exacerbations her breathing she has chronic bronchitis with significant exacerbations in prednisone. The patient however has a bad reaction to prednisone. Therefore she will be a good candidate for Daliresp. We will start the Daliresp every other day and hopefully then she can take a daily when she gets used to it. She did move in with her son and kline she is there she can't smoke. Since she stop smoking her respiratory status has improved. She still has a cough off and on. More recently she did fall down the stairs and she fractured her wrist on her right side. She is currently has a cast down. She is not sure if she is going to need surgery. She is asking for a nicotine patch to help with withdrawals. She also was prescribed Daliresp as she has good candidate, but, she was not at the pharmacy. Therefore I recent a prescription and also gave her a paper prescription just in case.. 03/23/2022 the patient is here for a pulmonary follow-up visit. Overall she is getting better. She had tough viral bronchitis and likely bronchiolitis after her son's wedding. The last for several weeks. She did require multiple courses of prednisone and also antibiotics. Finally she is better although she still has a cough. The cough tends to be croupy in nature. Sometimes she has a coughing spell is hard to break. She does have intermittent mucus production. Unfortunately she continues to smoke cigarettes and she understands this will result in chronic bronchitis. She continues use the Trelegy with good effect. She is also using the Daliresp. That also has been helpful. She has been working on weight loss. She is participating in the lung cancer screening program. Her last CT scan was the fall. This was done at [facility]. She was told that everything was stable. Scheduled for another CT scan in a year's time. We will request a CT scan from [facility]. 06/23/2022 the patient is here for a pulmonary follow-up visit. She was recently hospitalized in psychiatry at [facility] after a question suicidal attempt. The patient was found unresponsive after taking sleeping pills. Now she is back home. The patient does complaint of daytime drowsiness. She has hard time sleeping. She did have sleep apnea before and she had been on CPAP. However she no longer has a CPAP available. The patient has not had a sleep study many years. She continues to be symptomatic with daytime drowsiness with an [place] score of 11/24. Therefore I will request a repeat sleep study hope to get her back on CPAP therapy and help her with her sleep-wake cycle. She continues use her medications. Unfortunately she also continues to smoke cigarettes. She responds well to Trelegy. This morning she woke up and she felt some chest tightness and wheezing. She has not use her Trelegy as of yet. She will take it when she goes home. She is also participating in the lung cancer screening program. Her last CT scan at [facility] demonstrating stable pulmonary nodules. 09/22/2022 the patient is here for a pulmonary follow-up visit. The patient is finally feeling better. She had pneumonia and required a long course of prednisone. The patient had a follow-up chest x-ray which I personally reviewed without any evidence of any airspace disease which is reassuring. The patient is back to her baseline. She continues on the Trelegy. She has been monitoring her weight and her diet. She is doing very well good losing weight. She does have daytime drowsiness. She has an elevated [place] score 11/24. We did review her home sleep study demonstrating an AHI of 22 suggestive of moderate to severe sleep apnea. The patient needs to go back on CPAP. The patient is agreeable at this time and I will send a script for CPAP to a local [employer] company. 03/05/2023 the patient is here for a pulmonary follow-up visit. The patient has been having difficulties with her sleep. Has significant daytime drowsiness. Her [place] score significantly elevated 11/24. Apparently she had been on CPAP before but her CPAP broke beyond repair. Therefore she has not been able to use it. We have requested a replacement machine during the last visit but the patient did not receive any replacement. I did reach out to the [employer] company and they will see what they can do. The patient needs to start her CPAP therapy specially with her increased cardiovascular risk factors. She continues use her Trelegy inhaler which she is been affecting beneficial. The patient has not required any prednisone. She does use her rescue inhaler on a daily basis however. She also has chest congestion. [id number]-[id number] severity. Unfortunately the patient continues to smoke cigarettes. She is participating in the lung cancer screening program. 07/05/2023 the patient is here for a pulmonary follow-up visit. The patient is feeling better from a respiratory status. She was treated for pneumonia. She completed the prednisone also couple antibiotics. She still complains of sinus congestion and postnasal drip. Sometimes she does have some degree of congestion that pulls in the back of the throat difficult to clear out. She has not using any nasal therapy right now. For her lungs she continues on the Trelegy. She has not had to use her rescue therapy. Unfortunately she continues to smoke cigarettes. The patient is participating in the lung cancer screening program at [facility]. She would like to stay there. She has not had a CAT scan more than a year. I did give her the number and also re-referred her to the [facility] lung cancer screening program. She knows to send me a report. Otherwise the patient follow-up in 4-6 months. 11/05/2023 the patient is here for a pulmonary follow-up visit. She does complaint of increasing sinus pressure. She does have increasing nasal drainage and congestion. Does complaint of a cough due to a postnasal drip. Moderate severity. Denies any fevers or chills. She continues use her respiratory therapy with good effect. She is also using the CPAP at nighttime with good effect. Unfortunately she still continues to smoke cigarettes. The patient is participating in the lung cancer screening program. This is a [facility]. She is not due to the spring. will go ahead and treat her for the sinusitis at this time. If she has persistent symptoms she will call for further recommendations. [facility] Medical History (Updated 11/05/23 @ 09:53 by Felipe Lopez MD) Sinusitis Screening for lung cancer SRIDEVI (obstructive sleep apnea) Bronchitis COPD exacerbation Tobacco dependence Chronic restrictive lung disease Asthma-COPD overlap syndrome Asthma Tobacco dependence Pulmonary nodules COPD (chronic obstructive pulmonary disease) Family History (Updated 04/02/20 @ 20:41 by Felipe Lopez MD) Other Asthma Social History (Updated 03/05/23 @ 11:02 by Ioana Sarah [facility]) Patient Tobacco Use Status: Current everyday Tobacco user Cigarette Packs Per Day: 0.5 Cigarettes Per Day: 3 Years Smoked: 30 years Review of Systems Const Reports difficulty sleeping, Denies fever(s), Denies night sweats and Reports snoring Eyes Denies change in vision ENT Denies change in voice, Denies lip swelling, Denies mouth pain, Reports nasal congestion (MILD), Reports nasal discharge (MILD), Denies neck pain, Reports post nasal drip, Denies sinus pain and Denies tongue swelling Card Denies chest pain, Denies irregular heart rhythm, Denies leg edema and Denies dyspnea Resp Reports chest congestion, Reports cough, Denies hemoptysis, Denies dyspnea, Reports snoring and Reports wheezing GI Denies abdominal pain Musc Denies no additional complaints and Denies neck pain Neuro Denies Neuro-related abnormal movements Psych Reports as per HPI Alvaro/Lymph Denies easy bleeding and Denies lymphadenopathy Aller/Immun Denies lip swelling, Denies tongue swelling and Reports wheezing Physical Exam Vital Signs: Last Vital Signs Pulse 84 11/05/23 09:47 Pulse Ox 98 11/05/23 09:47 Oxygen Delivery Method Room Air 11/05/23 09:47 BMI result Body Mass Index 32.5 Const General: alert Orientation/consciousness: patient oriented x3 Neck Neck: Yes normal visual inspection, Yes full ROM and Yes no lymphadenopathy Chest Chest palpation & inspection: normal inspection of the chest Resp Effort & Inspection: normal respiratory effort Auscultation: no wheezes and diminished lung sounds Cardio Rate: regular rate Rhythm: regular rhythm Heart sounds: S1 normal heart sound present and S2 normal heart sound present GI Palpation (GI): Soft to palpation and nontender Auscultation: normal bowel sounds Skin General skin exam: rashes and/or lesions noted Neuro General: patient oriented x3 Quality Reporting (2019) Adult ([facility] 13805/27/68) Smoking risk assessment performed?: Yes Patient Tobacco Use Status: Current everyday Tobacco user Assessment & Plan Assessment & Plan (1) Asthma-COPD overlap syndrome: Code(s): J44.9 - Chronic obstructive pulmonary disease, unspecified Category: Medical (2) Pulmonary nodules: Code(s): R91.8 - Other nonspecific abnormal finding of lung field Category: Medical (3) SRIDEVI (obstructive sleep apnea): Code(s): G47.33 - Obstructive sleep apnea (adult) (pediatric) Category: Medical (4) Tobacco dependence: Code(s): F17.200 - Nicotine dependence, unspecified, uncomplicated Category: Medical (5) Sinusitis: Code(s): J32.9 - Chronic sinusitis, unspecified Category: Medical Qualifiers: Chronicity: subacute Sinusitis location: unspecified location Qualified Code(s): J01.90 - Acute sinusitis, unspecified Plan Doxycycline x 14 days Tobacco cessation continue Trelegy continue xopenex nebs BID continue Daliresp benzonates as needed for cough APAP, needs a replacement APAP. Her machine is broken beyond repeair. Also needs a [id number] full face mask LDCT at [facility] Start Fluticasone nasal spray F/U 4-6 months Medications: New sodium chloride 0.65% ([place]) 2 sprays intranasal QID PRN 50 mL 6RF dry nasal passages 10 days doxycycline monohydrate 100 mg PO BID 28 tabs 0RF 14 days Coding Level of Care Code Est Pt Level 4 (31806) Diagnoses Asthma-COPD overlap syndrome J44.9 Pulmonary nodules R91.8 SRIDEVI (obstructive sleep apnea) G47.33 Tobacco dependence F17.200 Subacute sinusitis, unspecified location J01.90 Chronicity: subacute Sinusitis location: unspecified location Time Spent (min) 16
[2023-11-05 09:47] VITALS: PULSE 84; O2SAT 98; BMI 32.5
== END 2023-11-05 10:01 | disposition home or self-care (01) ==
PROVIDERS: PCP Internal Medicine; Visit Provider Hospitalist
DX: J44.9 Chronic obstructive pulmonary disease, unspecified (principal); R91.8 Other nonspecific abnormal finding of lung field; G47.33 Obstructive sleep apnea (adult) (pediatric); F17.200 Nicotine dependence, unspecified, uncomplicated; J01.90 Acute sinusitis, unspecified
CPT/HCPCS: 99214

== ENCOUNTER → 2023-11-05 09:16 | Outpatient (BNVA) | payer MEDICARE, OTHER, MEDICAID, SELFPAY | PROVIDERS: PCP Internal Medicine; Visit Provider Hospitalist | DX: J44.9 Chronic obstructive pulmonary disease, unspecified (principal); J01.90 Acute sinusitis, unspecified; R91.8 Other nonspecific abnormal finding of lung field; G47.33 Obstructive sleep apnea (adult) (pediatric); F17.210 Nicotine dependence, cigarettes, uncomplicated; Z99.89 Dependence on other enabling machines and devices | CPT/HCPCS: 99212 ==

== ENCOUNTER 2024-01-05 08:53 | Outpatient (AMB) | payer MEDICARE, OTHER, MEDICAID, SELFPAY ==
[2024-01-05 09:00] VITALS: BP 118/60; PULSE 77; O2SAT 100; BMI 32.5
--- NOTE | 2024-01-05 09:00 | A.OFFVIS_ITS ---
Vital Signs 01/05/24 09:00 Height 5 ft 4 in Weight 189 lb 9.561 oz BMI 32.5 BP 118/60 Blood Pressure Location Lt brachial Position Sitting Pulse 77 Pulse Source Pulse Oximeter Pulse Oximetry (%) 100 Oxygen Delivery Method Room Air Intake Visit Reasons: COPD Allergies acetaminophen [Tylenol] Allergy (Severe, Verified 01/05/24 09:03) Rash and Hives oxycodone [Percocet] Allergy (Severe, Verified 01/05/24 09:03) Rash and Hives penicillin V Allergy (Severe, Verified 01/05/24 09:03) Rash and Hives Sulfa (Sulfonamide Antibiotics) Allergy (Severe, Verified 01/05/24 09:03) Rash and Hives trazodone Allergy (Severe, Verified 01/05/24 09:03) Rash and Hives Erythromycin Allergy (Severe, Uncoded 01/05/24 09:03) Rash and Hives latex Allergy (Severe, Uncoded 01/05/24 09:03) Rash and Hives Proventil Allergy (Severe, Uncoded 01/05/24 09:03) Rash and Hives HPI Comments Details: The patient is a 68 year-old woman with known COPD and tobacco dependency. She continues to smoke and actually she has been smoking more. She is very depressed. She feels like it inhalers are not working for her. Although she notes that the smoking is only making it worse. The patient is also reluctant to use any oxygen. She has been complaining of a productive cough and multiple exacerbations her breathing she has chronic bronchitis with significant exacerbations in prednisone. The patient however has a bad reaction to prednisone. Therefore she will be a good candidate for Daliresp. We will start the Daliresp every other day and hopefully then she can take a daily when she gets used to it. She did move in with her son and kline she is there she can't smoke. Since she stop smoking her respiratory status has improved. She still has a cough off and on. More recently she did fall down the stairs and she fractured her wrist on her right side. She is currently has a cast down. She is not sure if she is going to need surgery. She is asking for a nicotine patch to help with withdrawals. She also was prescribed Daliresp as she has good candidate, but, she was not at the pharmacy. Therefore I recent a prescription and also gave her a paper prescription just in case.. 03/23/2022 the patient is here for a pulmonary follow-up visit. Overall she is getting better. She had tough viral bronchitis and likely bronchiolitis after her son's wedding. The last for several weeks. She did require multiple courses of prednisone and also antibiotics. Finally she is better although she still has a cough. The cough tends to be croupy in nature. Sometimes she has a coughing spell is hard to break. She does have intermittent mucus production. Unfortunately she continues to smoke cigarettes and she understands this will result in chronic bronchitis. She continues use the Trelegy with good effect. She is also using the Daliresp. That also has been helpful. She has been working on weight loss. She is participating in the lung cancer screening program. Her last CT scan was the fall. This was done at [facility]. She was told that everything was stable. Scheduled for another CT scan in a year's time. We will request a CT scan from [facility]. 06/23/2022 the patient is here for a pulmonary follow-up visit. She was recently hospitalized in psychiatry at [facility] after a question suicidal attempt. The patient was found unresponsive after taking sleeping pills. Now she is back home. The patient does complaint of daytime drowsiness. She has hard time sleeping. She did have sleep apnea before and she had been on CPAP. However she no longer has a CPAP available. The patient has not had a sleep study many years. She continues to be symptomatic with daytime drowsiness with an [place]oke score of 11/24. Therefore I will request a repeat sleep study hope to get her back on CPAP therapy and help her with her sleep-wake cycle. She continues use her medications. Unfortunately she also continues to smoke cigarettes. She responds well to Trelegy. This morning she woke up and she felt some chest tightness and wheezing. She has not use her Trelegy as of yet. She will take it when she goes home. She is also participating in the lung cancer screening program. Her last CT scan at [facility] demonstrating stable pulmonary nodules. 09/22/2022 the patient is here for a pulmonary follow-up visit. The patient is finally feeling better. She had pneumonia and required a long course of prednisone. The patient had a follow-up chest x-ray which I personally reviewed without any evidence of any airspace disease which is reassuring. The patient is back to her baseline. She continues on the Trelegy. She has been monitoring her weight and her diet. She is doing very well good losing weight. She does have daytime drowsiness. She has an elevated Holyoke score 11/24. We did review her home sleep study demonstrating an AHI of 22 suggestive of moderate to severe sleep apnea. The patient needs to go back on CPAP. The patient is agreeable at this time and I will send a script for CPAP to a local [employer] company. 03/05/2023 the patient is here for a pulmonary follow-up visit. The patient has been having difficulties with her sleep. Has significant daytime drowsiness. Her Holyoke score significantly elevated 11/24. Apparently she had been on CPAP before but her CPAP broke beyond repair. Therefore she has not been able to use it. We have requested a replacement machine during the last visit but the patient did not receive any replacement. I did reach out to the [employer] company and they will see what they can do. The patient needs to start her CPAP therapy specially with her increased cardiovascular risk factors. She continues use her Trelegy inhaler which she is been affecting beneficial. The patient has not required any prednisone. She does use her rescue inhaler on a daily basis however. She also has chest congestion. Ddea-ls-ayiakspg severity. Unfortunately the patient continues to smoke cigarettes. She is participating in the lung cancer screening program. 07/05/2023 the patient is here for a pulmonary follow-up visit. The patient is feeling better from a respiratory status. She was treated for pneumonia. She completed the prednisone also couple antibiotics. She still complains of sinus congestion and postnasal drip. Sometimes she does have some degree of congestion that pulls in the back of the throat difficult to clear out. She has not using any nasal therapy right now. For her lungs she continues on the Trelegy. She has not had to use her rescue therapy. Unfortunately she continues to smoke cigarettes. The patient is participating in the lung cancer screening program at [facility]. She would like to stay there. She has not had a CAT scan more than a year. I did give her the number and also re- referred her to the [facility] lung cancer screening program. She knows to send me a report. Otherwise the patient follow-up in 4-6 months. 11/05/2023 the patient is here for a pulmonary follow-up visit. She does complaint of increasing sinus pressure. She does have increasing nasal drainage and congestion. Does complaint of a cough due to a postnasal drip. Moderate severity. Denies any fevers or chills. She continues use her respiratory therapy with good effect. She is also using the CPAP at nighttime with good effect. Unfortunately she still continues to smoke cigarettes. The patient is participating in the lung cancer screening program. This is a [facility]. She is not due to the spring. will go ahead and treat her for the sinusitis at this time. If she has persistent symptoms she will call for further recommendations. 01/05/2024 the patient is here for a pulmonary follow-up visit. The patient overall has been feeling sickly. She had been sick now for about a week. She started developing sore throat then she developed laryngitis. Then after that she started developing a croupy cough. It has been going on for about a week. It is bothering her sleep. Moderate severity. She has been using all inhalers with only minimal relief. She has used [id number]-raunuzc cough medications. The patient feels that she has been cough. Will go ahead and treat with azithromycin. She does have wheezing on exam with a very significant cough. Therefore, she also gets some prednisone. The patient also can use Tessalon Perles as needed. Her last imaging study was back in 07/24/2023 where she had a lung cancer screening CT scan at [facility]. We did review it was a rads 2. Therefore will hold off on any imaging right now. She will continue with current respiratory therapy and she needs to continue with smoking cessation. She will follow-up in 2-3 months. However, she is no better she will call for an earlier assessment. [facility] Medical History (Updated 11/05/23 @ 09:53 by Felipe Lopez MD) Sinusitis Screening for lung cancer SRIDEVI (obstructive sleep apnea) Bronchitis COPD exacerbation Tobacco dependence Chronic restrictive lung disease Asthma-COPD overlap syndrome Asthma Tobacco dependence Pulmonary nodules COPD (chronic obstructive pulmonary disease) Family History (Updated 04/02/20 @ 20:41 by Felipe Lopez MD) Other Asthma Social History (Updated 03/05/23 @ 11:02 by Ioana Sarah Bridger) Patient Tobacco Use Status: Current everyday Tobacco user Cigarette Packs Per Day: 0.5 Cigarettes Per Day: 3 Years Smoked: 30 years Review of Systems Const Reports difficulty sleeping, Denies fever(s), Denies night sweats and Reports snoring Eyes Denies change in vision ENT Denies change in voice, Denies lip swelling, Denies mouth pain, Reports nasal congestion (MILD), Reports nasal discharge (MILD), Denies neck pain, Reports post nasal drip, Denies sinus pain and Denies tongue swelling Card Denies chest pain, Denies irregular heart rhythm, Denies leg edema and Denies dyspnea Resp Reports chest congestion, Reports cough, Denies hemoptysis, Denies dyspnea, Reports snoring and Reports wheezing GI Denies abdominal pain Musc Denies no additional complaints and Denies neck pain Neuro Denies Neuro-related abnormal movements Psych Reports as per HPI Alvaro/Lymph Denies easy bleeding and Denies lymphadenopathy Aller/Immun Denies lip swelling, Denies tongue swelling and Reports wheezing Physical Exam Vital Signs: Last Vital Signs Pulse 77 01/05/24 09:00 BP 118/60 01/05/24 09:00 Pulse Ox 100 01/05/24 09:00 Oxygen Delivery Method Room Air 01/05/24 09:00 BMI result Body Mass Index 32.5 Const General: alert Orientation/consciousness: patient oriented x3 Neck Neck: Yes normal visual inspection, Yes full ROM and Yes no lymphadenopathy Chest Chest palpation & inspection: normal inspection of the chest Resp Effort & Inspection: normal respiratory effort and Actively coughing Auscultation: wheezes and diminished lung sounds Cardio Rate: regular rate Rhythm: regular rhythm Heart sounds: S1 normal heart sound present and S2 normal heart sound present GI Palpation (GI): Soft to palpation and nontender Auscultation: normal bowel sounds Skin General skin exam: rashes and/or lesions noted Neuro General: patient oriented x3 Quality Reporting (2019) Adult ([facility] ) Smoking risk assessment performed?: Yes Patient Tobacco Use Status: Current everyday Tobacco user Assessment & Plan Assessment & Plan (1) Bronchitis: Code(s): J40 - Bronchitis, not specified as acute or chronic Category: Medical (2) Asthma-COPD overlap syndrome: Code(s): J44.9 - Chronic obstructive pulmonary disease, unspecified Category: Medical (3) Pulmonary nodules: Code(s): R91.8 - Other nonspecific abnormal finding of lung field Category: Medical (4) SRIDEVI (obstructive sleep apnea): Code(s): G47.33 - Obstructive sleep apnea (adult) (pediatric) Category: Medical (5) Tobacco dependence: Code(s): F17.200 - Nicotine dependence, unspecified, uncomplicated Category: Medical (6) Sinusitis: Code(s): J32.9 - Chronic sinusitis, unspecified Category: Medical Qualifiers: Chronicity: subacute Sinusitis location: unspecified location Qualified Code(s): J01.90 - Acute sinusitis, unspecified Plan start Doxy start Prednisone taper cough medicine Tobacco cessation continue Trelegy continue xopenex nebs BID continue Daliresp benzonates as needed for cough APAP, T41fsusnol full face mask LDCT at [facility] Fluticasone nasal spray F/U 4-6 months Medications: New prednisone Take 2 tabs daily x 5 days, then 1 tablet daily x 5 days 20 mg PO DAILY 15 tabs 0RF 10 days benzonatate 200 mg PO TID PRN 60 caps 6RF cough 30 days azithromycin 500 mg PO DAILY 5 tabs 0RF 5 days Coding Level of Care Code Est Pt Level 4 (23900) Diagnoses Bronchitis J40 Asthma-COPD overlap syndrome J44.9 Pulmonary nodules R91.8 SRIDEVI (obstructive sleep apnea) G47.33 Tobacco dependence F17.200 Subacute sinusitis, unspecified location J01.90 Chronicity: subacute Sinusitis location: unspecified location Time Spent (min) 16
== END 2024-01-05 09:14 | disposition home or self-care (01) ==
PROVIDERS: PCP Internal Medicine; Visit Provider Hospitalist
DX: J40 Bronchitis, not specified as acute or chronic (principal); J44.9 Chronic obstructive pulmonary disease, unspecified; R91.8 Other nonspecific abnormal finding of lung field; G47.33 Obstructive sleep apnea (adult) (pediatric); F17.200 Nicotine dependence, unspecified, uncomplicated; J01.90 Acute sinusitis, unspecified
CPT/HCPCS: 99214

== ENCOUNTER → 2024-01-05 08:53 | Outpatient (BNVA) | payer MEDICARE, OTHER, MEDICAID, SELFPAY | PROVIDERS: PCP Internal Medicine; Visit Provider Hospitalist | DX: J44.9 Chronic obstructive pulmonary disease, unspecified (principal); J40 Bronchitis, not specified as acute or chronic; J01.90 Acute sinusitis, unspecified; R91.8 Other nonspecific abnormal finding of lung field; F17.210 Nicotine dependence, cigarettes, uncomplicated; G47.33 Obstructive sleep apnea (adult) (pediatric) | CPT/HCPCS: 99212 ==

== ENCOUNTER 2024-01-28 10:46 | Outpatient (AMB) | payer MEDICARE, OTHER, MEDICAID, SELFPAY ==
[2024-01-28 11:06] VITALS: BP 124/60; PULSE 87; O2SAT 98; BMI 32.5
--- NOTE | 2024-01-28 11:06 | A.OFFVIS_ITS ---
Vital Signs 01/28/24 11:06 Height 5 ft 4 in Weight 189 lb 2 oz BMI 32.5 BP 124/60 Blood Pressure Location Rt brachial Position Sitting Pulse 87 Pulse Source Pulse Oximeter Pulse Oximetry (%) 98 Oxygen Delivery Method Room Air Intake Visit Reasons: Shortness of breath Allergies acetaminophen [Tylenol] Allergy (Severe, Verified 01/28/24 11:11) Rash and Hives oxycodone [Percocet] Allergy (Severe, Verified 01/28/24 11:11) Rash and Hives penicillin V Allergy (Severe, Verified 01/28/24 11:11) Rash and Hives Sulfa (Sulfonamide Antibiotics) Allergy (Severe, Verified 01/28/24 11:11) Rash and Hives trazodone Allergy (Severe, Verified 01/28/24 11:11) Rash and Hives Erythromycin Allergy (Severe, Uncoded 01/28/24 11:11) Rash and Hives latex Allergy (Severe, Uncoded 01/28/24 11:11) Rash and Hives Proventil Allergy (Severe, Uncoded 01/28/24 11:11) Rash and Hives HPI HPI Shortness of breath: Details: Tash is a pleasant 68-year-old female, current smoker, with underlying asthma, COPD and SRIDEVI. She is under the care of Dr. Lopez and presents today for an acute visit. At baseline she is moderately controlled on Trelegy, Singulair, Daliresp and levalbuterol neb/MDI. She reportedly tested positive to pertussis and was treated with azithromycin however patient with allergy so was switched to doxycycline. She continued with symptoms of dyspnea, productive cough and wheezing shortly after completing course then treated with Vantin and prednisone. She reports improvement in wheezing however continues with dyspnea and productive cough with green sputum with blood-streaked started over the last few days. She denies wheezing, fevers however has had chills. She denies any sick contacts. She does note she has an upcoming appointment with [facility] for echo and to discuss Lasix dose which she is currently on 80 mg daily. [facility] Medical History (Updated 01/28/24 @ 11:34 by Zonia Alvarez NP) Sinusitis Screening for lung cancer SRIDEVI (obstructive sleep apnea) Bronchitis COPD exacerbation Tobacco dependence Chronic restrictive lung disease Asthma-COPD overlap syndrome Asthma Tobacco dependence Pulmonary nodules COPD (chronic obstructive pulmonary disease) Family History (Updated 04/02/20 @ 20:41 by Felipe Lopez MD) Other Asthma Social History (Updated 01/28/24 @ 11:10 by Debbie Nicolas CMA) Patient Tobacco Use Status: Current everyday Tobacco user Cigarettes Per Day: 2 Years Smoked: 30 years Review of Systems Const Denies chills, Denies excessive sweating, Denies fever(s), Denies headache(s) and Denies night sweats Eyes Denies dry eyes, Denies irritation and Denies itchy eyes ENT Reports Normal hearing present, Denies headache(s), Denies nasal congestion, Denies nasal discharge, Denies post nasal drip and Denies sore throat Card Denies chest pain, Denies chest pain at rest, Denies chest pain with activity, Denies claudication, Denies leg edema, Denies orthopnea and Denies paroxysmal nocturnal dyspnea Resp Denies excessive phlegm production, Denies pain on inspiration, Denies pain with cough, Denies stridor and Denies wheezing Musc Denies myalgias Neuro Reports Normal hearing present and Denies headache(s) Endo Denies excessive sweating Alvaro/Lymph Denies lymphadenopathy Aller/Immun Denies itchy eyes, Denies seasonal rhinorrhea and Denies wheezing Physical Exam Vital Signs: Last Vital Signs Pulse 87 01/28/24 11:06 BP 124/60 01/28/24 11:06 Pulse Ox 98 01/28/24 11:06 Oxygen Delivery Method Room Air 01/28/24 11:06 BMI result Body Mass Index 32.5 Const General: cooperative, healthy appearing, comfortable, no acute distress, well developed and alert Nutritional Appearance: obese Orientation/consciousness: patient oriented x3 Limitations: no limitations HEENT Head: Yes normal to inspection, Yes normocephalic and Yes atraumatic Ears: hearing grossly normal bilaterally and external ears normal Eyes General: appearance normal, both eyes and all related structures Eyelids: Yes eyelids normal Sclerae: sclerae normal EOM: EOMs intact bilaterally Neck Neck: Yes normal visual inspection and Yes no lymphadenopathy Lymphatic: no lymphadenopathy noted Chest Chest palpation & inspection: normal inspection of the chest Resp Effort & Inspection: normal respiratory effort, able to speak in complete sentences, no audible wheezes, no cough, no stridor, not tachypneic, no tripod positioning and no use of accessory muscles Auscultation: no crackles, no rhonchi, no wheezes and diminished lung sounds Cardio Jugular venous distension: no JVD Rate: regular rate Rhythm: regular rhythm Skin Other: warm, dry General skin exam: no rashes or lesions noted Neuro General: patient oriented x3 Cranial nerves: Yes Normal hearing present Cognition (Neuro): normal cognition Gait exam (Neuro): Normal gait present Extrem General: Yes normal to inspection, Yes capillary refill normal, Yes no clubbing, cyanosis or edema and Yes no pedal edema Psych Appearance: grossly normal and well kempt Speech and movement: Normal speech and movement present and Clear speech present Affect: normal affect Attitude: cooperative Thought process: Normal thought process present Thought content: Normal thought content present Insight: Good insight present (Psych) Judgement: Good judgement present (Psych) Quality Reporting (2019) Adult ([facility] 138/05/27/68) Smoking risk assessment performed?: Yes Patient Tobacco Use Status: Current everyday Tobacco user Assessment & Plan Assessment & Plan (1) Bronchitis: Code(s): J40 - Bronchitis, not specified as acute or chronic Category: Medical (2) Asthma-COPD overlap syndrome: Code(s): J44.9 - Chronic obstructive pulmonary disease, unspecified Category: Medical (3) Pulmonary nodules: Code(s): R91.8 - Other nonspecific abnormal finding of lung field Category: Medical (4) Tobacco dependence: Code(s): F17.200 - Nicotine dependence, unspecified, uncomplicated Category: Medical Plan Tash continues to have bronchitic symptoms despite doxycycline and Vantin. Will send for sputum and chest x-ray today. She is aware if symptoms worsen to seek emergent care. Advised to continue current regimen of Trelegy, singulair, daliresp and levalbuterol MDI/med. All questions were answered and patient is in agreement of plan. Will follow-up with results. Orders: Orders XR chest 2V Today R05.9 - Cough, unspecified Sputum Cult + Gram stain Today R05.9 - Cough, unspecified Medications: Refilled levalbuterol HCl 1.25 mg (3 mL) inhalation BID 30 days 180 mL 5RF J44.9 - Chronic obstructive pulmonary disease, unspecified Coding Level of Care Code Est Pt Level 4 (76168) Diagnoses Bronchitis J40 Asthma-COPD overlap syndrome J44.9 Pulmonary nodules R91.8 Tobacco dependence F17.200
== END 2024-01-28 11:49 | disposition home or self-care (01) ==
PROVIDERS: PCP Internal Medicine; Visit Provider Nurse Practitioner Family
DX: J40 Bronchitis, not specified as acute or chronic (principal); J44.9 Chronic obstructive pulmonary disease, unspecified; R91.8 Other nonspecific abnormal finding of lung field; F17.200 Nicotine dependence, unspecified, uncomplicated
CPT/HCPCS: 99214

== ENCOUNTER → 2024-01-28 10:46 | Outpatient (BNVA) | payer MEDICARE, OTHER, MEDICAID, SELFPAY | PROVIDERS: PCP Internal Medicine; Visit Provider Nurse Practitioner Family | DX: J44.9 Chronic obstructive pulmonary disease, unspecified (principal); J40 Bronchitis, not specified as acute or chronic; R91.8 Other nonspecific abnormal finding of lung field; F17.210 Nicotine dependence, cigarettes, uncomplicated | CPT/HCPCS: 99212 ==

== ENCOUNTER 2024-01-29 08:00 | Outpatient (REF) | payer MEDICARE, OTHER, MEDICAID, SELFPAY | END 2024-01-29 08:01 | disposition home or self-care (01) | LOC: HO.LNP 08:00 | PROVIDERS: Visit Provider Nurse Practitioner Family | DX: Z13.89 Encounter for screening for other disorder (principal) ==

== ENCOUNTER 2024-06-01 09:18 | Outpatient (AMB) | payer MEDICARE, OTHER, MEDICAID, SELFPAY ==
[2024-06-01 09:44] VITALS: BP 108/52; PULSE 75; O2SAT 98; BMI 32.5
--- NOTE | 2024-06-01 09:44 | A.OFFVIS_ITS ---
Vital Signs 06/01/24 09:44 Height 5 ft 4 in Weight 189 lb 9.561 oz BMI 32.5 BP 108/52 L Blood Pressure Location Lt brachial Position Sitting Pulse 75 Pulse Source Pulse Oximeter Pulse Oximetry (%) 98 Oxygen Delivery Method Room Air Intake Visit Reasons: COPD Allergies acetaminophen [Tylenol] Allergy (Severe, Verified 06/01/24 09:47) Rash and Hives oxycodone [Percocet] Allergy (Severe, Verified 06/01/24 09:47) Rash and Hives penicillin V Allergy (Severe, Verified 06/01/24 09:47) Rash and Hives Sulfa (Sulfonamide Antibiotics) Allergy (Severe, Verified 06/01/24 09:47) Rash and Hives trazodone Allergy (Severe, Verified 06/01/24 09:47) Rash and Hives Erythromycin Allergy (Severe, Uncoded 06/01/24 09:47) Rash and Hives latex Allergy (Severe, Uncoded 06/01/24 09:47) Rash and Hives Proventil Allergy (Severe, Uncoded 06/01/24 09:47) Rash and Hives HPI Comments Details: The patient is a 68 year-old woman with known COPD and tobacco dependency. She continues to smoke and actually she has been smoking more. She is very depressed. She feels like it inhalers are not working for her. Although she notes that the smoking is only making it worse. The patient is also reluctant to use any oxygen. She has been complaining of a productive cough and multiple exacerbations her breathing she has chronic bronchitis with significant exacerbations in prednisone. The patient however has a bad reaction to prednisone. Therefore she will be a good candidate for Daliresp. We will start the Daliresp every other day and hopefully then she can take a daily when she gets used to it. She did move in with her son and kline she is there she can't smoke. Since she stop smoking her respiratory status has improved. She still has a cough off and on. More recently she did fall down the stairs and she fractured her wrist on her right side. She is currently has a cast down. She is not sure if she is going to need surgery. She is asking for a nicotine patch to help with withdrawals. She also was prescribed Daliresp as she has good candidate, but, she was not at the pharmacy. Therefore I recent a prescription and also gave her a paper prescription just in case.. 03/23/2022 the patient is here for a pulmonary follow-up visit. Overall she is getting better. She had tough viral bronchitis and likely bronchiolitis after her son's wedding. The last for several weeks. She did require multiple courses of prednisone and also antibiotics. Finally she is better although she still has a cough. The cough tends to be croupy in nature. Sometimes she has a coughing spell is hard to break. She does have intermittent mucus production. Unfortunately she continues to smoke cigarettes and she understands this will result in chronic bronchitis. She continues use the Trelegy with good effect. She is also using the Daliresp. That also has been helpful. She has been working on weight loss. She is participating in the lung cancer screening program. Her last CT scan was the fall. This was done at [facility]. She was told that everything was stable. Scheduled for another CT scan in a year's time. We will request a CT scan from [facility]. 06/23/2022 the patient is here for a pulmonary follow-up visit. She was recently hospitalized in psychiatry at [facility] after a question suicidal attempt. The patient was found unresponsive after taking sleeping pills. Now she is back home. The patient does complaint of daytime drowsiness. She has hard time sleeping. She did have sleep apnea before and she had been on CPAP. However she no longer has a CPAP available. The patient has not had a sleep study many years. She continues to be symptomatic with daytime drowsiness with an Middlebrook score of 11/24. Therefore I will request a repeat sleep study hope to get her back on CPAP therapy and help her with her sleep-wake cycle. She continues use her medications. Unfortunately she also continues to smoke cigarettes. She responds well to Trelegy. This morning she woke up and she felt some chest tightness and wheezing. She has not use her Trelegy as of yet. She will take it when she goes home. She is also participating in the lung cancer screening program. Her last CT scan at [facility] demonstrating stable pulmonary nodules. 09/22/2022 the patient is here for a pulmonary follow-up visit. The patient is finally feeling better. She had pneumonia and required a long course of prednisone. The patient had a follow-up chest x-ray which I personally reviewed without any evidence of any airspace disease which is reassuring. The patient is back to her baseline. She continues on the Trelegy. She has been monitoring her weight and her diet. She is doing very well good losing weight. She does have daytime drowsiness. She has an elevated Middlebrook score 11/24. We did review her home sleep study demonstrating an AHI of 22 suggestive of moderate to severe sleep apnea. The patient needs to go back on CPAP. The patient is agreeable at this time and I will send a script for CPAP to a local [employer] company. 03/05/2023 the patient is here for a pulmonary follow-up visit. The patient has been having difficulties with her sleep. Has significant daytime drowsiness. Her Middlebrook score significantly elevated 11/24. Apparently she had been on CPAP before but her CPAP broke beyond repair. Therefore she has not been able to use it. We have requested a replacement machine during the last visit but the patient did not receive any replacement. I did reach out to the [employer] company and they will see what they can do. The patient needs to start her CPAP therapy specially with her increased cardiovascular risk factors. She continues use her Trelegy inhaler which she is been affecting beneficial. The patient has not required any prednisone. She does use her rescue inhaler on a daily basis however. She also has chest congestion. [id number] severity. Unfortunately the patient continues to smoke cigarettes. She is participating in the lung cancer screening program. 07/05/2023 the patient is here for a pulmonary follow-up visit. The patient is feeling better from a respiratory status. She was treated for pneumonia. She completed the prednisone also couple antibiotics. She still complains of sinus congestion and postnasal drip. Sometimes she does have some degree of congestion that pulls in the back of the throat difficult to clear out. She has not using any nasal therapy right now. For her lungs she continues on the Trelegy. She has not had to use her rescue therapy. Unfortunately she continues to smoke cigarettes. The patient is participating in the lung cancer screening program at [facility]. She would like to stay there. She has not had a CAT scan more than a year. I did give her the number and also re- referred her to the [facility] lung cancer screening program. She knows to send me a report. Otherwise the patient follow-up in 4-6 months. 11/05/2023 the patient is here for a pulmonary follow-up visit. She does complaint of increasing sinus pressure. She does have increasing nasal drainage and congestion. Does complaint of a cough due to a postnasal drip. Moderate severity. Denies any fevers or chills. She continues use her respiratory therapy with good effect. She is also using the CPAP at nighttime with good effect. Unfortunately she still continues to smoke cigarettes. The patient is participating in the lung cancer screening program. This is a [facility]. She is not due to the spring. will go ahead and treat her for the sinusitis at this time. If she has persistent symptoms she will call for further recommendations. 01/05/2024 the patient is here for a pulmonary follow-up visit. The patient overall has been feeling sickly. She had been sick now for about a week. She started developing sore throat then she developed laryngitis. Then after that she started developing a croupy cough. It has been going on for about a week. It is bothering her sleep. Moderate severity. She has been using all inhalers with only minimal relief. She has used [id number] cough medications. The patient feels that she has been cough. Will go ahead and treat with azithromycin. She does have wheezing on exam with a very significant cough. Therefore, she also gets some prednisone. The patient also can use Tessalon Perles as needed. Her last imaging study was back in 07/24/2023 where she had a lung cancer screening CT scan at [facility]. We did review it was a rads 2. Therefore will hold off on any imaging right now. She will continue with current respiratory therapy and she needs to continue with smoking cessation. She will follow-up in 2-3 months. However, she is no better she will call for an earlier assessment. 06/01/2024 the patient is here for a pulmonary follow-up visit. Overall she is doing okay. She does complain of a postnasal drip. Moderate severity. Making her cough more. She is getting aggravated by periods not allow her to sleep comfortably. She has not been able to use her CPAP because of the postnasal drip in the cough. As far as respiratory symptoms she is doing okay otherwise. She is using her respiratory inhalers as prescribed. Unfortunately though she continues smoke cigarettes. She is not ready to quit. She is participating in the lung cancer screening program at [facility]. Apparently she did have a recent CT scan. Will requested it. For now will continue the current respiratory therapy and will start her on nasal sprays to minimize the upper airway cough syndrome. [facility] Medical History (Updated 01/28/24 @ 11:34 by Zonia Alvarez NP) Sinusitis Screening for lung cancer SRIDEVI (obstructive sleep apnea) Bronchitis COPD exacerbation Tobacco dependence Chronic restrictive lung disease Asthma-COPD overlap syndrome Asthma Tobacco dependence Pulmonary nodules COPD (chronic obstructive pulmonary disease) Family History (Updated 04/02/20 @ 20:41 by Felipe Lopez MD) Other Asthma Social History (Updated 06/01/24 @ 09:47 by Debbie Nicolas CMA) Patient Tobacco Use Status: Current everyday Tobacco user Cigarettes Per Day: 3 Years Smoked: 30 years Review of Systems Const Reports difficulty sleeping, Denies fever(s), Denies night sweats and Reports snoring Eyes Denies change in vision ENT Denies change in voice, Denies lip swelling, Denies mouth pain, Reports nasal congestion (MILD), Reports nasal discharge (MILD), Denies neck pain, Reports post nasal drip, Denies sinus pain and Denies tongue swelling Card Denies chest pain, Denies irregular heart rhythm, Denies leg edema and Denies dyspnea Resp Reports chest congestion, Reports cough, Denies hemoptysis, Denies dyspnea, Reports snoring and Reports wheezing GI Denies abdominal pain Musc Denies no additional complaints and Denies neck pain Neuro Denies Neuro-related abnormal movements Psych Reports as per HPI Alvaro/Lymph Denies easy bleeding and Denies lymphadenopathy Aller/Immun Denies lip swelling, Denies tongue swelling and Reports wheezing Physical Exam Vital Signs: Last Vital Signs Pulse 75 06/01/24 09:44 BP 108/52 L 06/01/24 09:44 Pulse Ox 98 06/01/24 09:44 Oxygen Delivery Method Room Air 06/01/24 09:44 BMI result Body Mass Index 32.5 Const General: alert Orientation/consciousness: patient oriented x3 Neck Neck: Yes normal visual inspection, Yes full ROM and Yes no lymphadenopathy Chest Chest palpation & inspection: normal inspection of the chest Resp Effort & Inspection: normal respiratory effort and Actively coughing Auscultation: diminished lung sounds Cardio Rate: regular rate Rhythm: regular rhythm Heart sounds: S1 normal heart sound present and S2 normal heart sound present GI Palpation (GI): Soft to palpation and nontender Auscultation: normal bowel sounds Skin General skin exam: rashes and/or lesions noted Neuro General: patient oriented x3 Quality Reporting (2019) Adult ([facility] 138/05/27/68) Smoking risk assessment performed?: Yes Patient Tobacco Use Status: Current everyday Tobacco user Assessment & Plan Assessment & Plan (1) Asthma-COPD overlap syndrome: Code(s): J44.9 - Chronic obstructive pulmonary disease, unspecified Category: Medical (2) Pulmonary nodules: Code(s): R91.8 - Other nonspecific abnormal finding of lung field Category: Medical (3) SRIDEVI (obstructive sleep apnea): Code(s): G47.33 - Obstructive sleep apnea (adult) (pediatric) Category: Medical (4) Tobacco dependence: Code(s): F17.200 - Nicotine dependence, unspecified, uncomplicated Category: Medical (5) Sinusitis: Code(s): J32.9 - Chronic sinusitis, unspecified Category: Medical Qualifiers: Chronicity: subacute Sinusitis location: unspecified location Qualified Code(s): J01.90 - Acute sinusitis, unspecified Plan Tobacco cessation continue Trelegy continue xopenex nebs BID continue Daliresp benzonates as needed for cough not using APA due to post nasal drip, [id number] full face mask LDCT at [facility] Fluticasone nasal spray F/U 4-6 months Medications: New fluticasone propionate 50 mcg/actuation 2 sprays intranasal DAILY 15.8 mL 11RF 30 days J31.0 - Chronic rhinitis ipratropium bromide administer into each nostril 2 sprays intranasal TID PRN 15 mL 6RF allergy symptoms Coding Level of Care Code Est Pt Level 4 (11231) Diagnoses Asthma-COPD overlap syndrome J44.9 Pulmonary nodules R91.8 SRIDEVI (obstructive sleep apnea) G47.33 Tobacco dependence F17.200 Subacute sinusitis, unspecified location J01.90 Chronicity: subacute Sinusitis location: unspecified location Time Spent (min) 16
--- OUTSIDE RECORDS SUMMARY | 2024-06-01 10:07 | XMS_ITS | Encounter Summary ---
Author Organization [facility] Address [id number] [place] [phone] Care Team Providers Care Licensed Architect Name Role Phone Sarah Sebastian MD Primary Care Provider [phone] Reason for Visit * Reason Onset Date Comments Results 05/04/2024 Chest x-ray done at [facility] Encounter Details Date Type Department Care Team (Late st Contact Info) Description 05/04/2024 Telephone Internal Medicine - [place] [address] [place] [phone] Sarah Sebastian MD [address] [place] [phone] Results (Chest x-ray done at [facility]) Social History Tobacco Use Types Packs/Day Years Used Date Smoking Tobacco: Every Day Smokeless Tobacco: Never Alcohol Use Standard Drinks/Week Comments No 0 (1 standard drink = 0.6 oz pur e alcohol) Comments Unknown Sex and Gender Information Value Date Recorded Sex Assigned at Not on file Legal Sex Female 6:15 AM EST Gender Identity Not on file Sexual Orientation Not on file documented as of this encounter Progress Notes * Elie Galarza MA - 05/04/2024 9:35 AM EST Per result note on 05/01/24 lorenzo called pt and informed of results. I called pt today and informed her of results. * Shalini Joseph - 05/04/2024 9:13 AM EST Patient called today with a request for results Of CXR done last week Please contact her documented in this encounter Plan of Treatment Upcoming Encounters Date Type Department Care Team (Late st Contact Info) Description 07/06/2024 9:30 AM EDT Telemedicine [facility] - [place] [address] [facility] [address] [place] [address] Peg Arredondo MD [address] [place] [phone] 07/20/2024 8:30 AM EDT Office Visit Internal Medicine - [place] [address] [facility] [address] [place] [phone] Tyrell Li NP [address] [facility] [address] [place] [address] 08/09/2024 9:00 AM EDT Office Visit Endocrinology - [address] [phone] Bryanna Boateng MD [address] [place] [address] documented as of this encounter Visit Diagnoses Not on filedocumented in this encounter Care Teams Licensed Architect Relationship Specialty Start Date End Date Sarah Sebastian MD [address] [facility] [address] [place] [phone] PCP - General Internal Medicine 03/14/24 documented as of this encounter
--- OUTSIDE RECORDS SUMMARY | 2024-06-01 10:07 | XMS_ITS | Encounter Summary ---
Author Organization [facility] Address [address] [place] [address] Care Team Providers Care Lock Tender Chief Operator Name Role Phone Sarah Sebastian MD Primary Care Provider [phone] Reason for Visit * Reason Onset Date Comments PT1 05/26/2024 Encounter Details Date Type Department Care Team (Late st Contact Info) Description 05/26/2024 Telephone Internal Medicine - [place] [address] [place] [phone] Sarah Sebastian MD [address] [place] [phone] PT1 Social History Tobacco Use Types Packs/Day Years [...] as of this encounter Progress Notes * Hazel Fung - 05/26/2024 9:33 AM EST [place] Medicaid Group new provider or submitter number is [id number] Verify and document patients [place] Health insurance ID # (NOT [facility] ID): Payor: [facility] FFS / Plan: [facility] / Product Type: MEDICAID RISK Patient mailing address: Telephone Information: Home Phone Work Phone Not on file. Mobile Not on file. Pt. demographics verified? YES If not accurate, update registration. Is this a NEW request or a RENEWAL? RENEWAL Name of treating facility: [facility] Name (first & last) of treating provider? required : What is the medical reason why the patient is seeing the above provider? Address/Zip code for treating provider:[address] [place] [address] Phone # for treating provider: Is the provider in the [facility] network (do they accept ID Health insurance)? What specialtly is this provider? When is the visit scheduled for? How often you will be seeing this particular provider? Twice A Week (Wednesday & Wednesday) Do you have friends or family who can transport you to this visit? NO If yes, do not complete request. Is there anything stopping you from using public transportation? If yes, explain. : Is there a medical reason (diagnosis) why you are unable to use public transportation? If yes, explain: Does patient carry self-administered oxygen? Does patient require door through door or room to room service( ex: member cannot ambulate or wait independently outside their home/facility for transportation. Is this is for an Adult Day Program or Suboxone clinic If yes to above what is arrival time N/A and what is departure time If yes to above how many days a week? Do you need a wheelchair van? If you use a wheelchair what is the height, width & length of the wheelchair? Do you need an escort to accompany you? If yes, explain why. Will you have an alternative pick-up address? Do you have a service animal? PT DOES NOT NEED RELEASE OF INFORMATION SIGNED documented in this encounter Plan of Treatment Upcoming Encounters Date Type Department Care Team (Late st Contact Info) Description 07/06/2024 9:30 AM EDT Telemedicine [facility] [place] [address] [facility] [address] [place] [address] Peg Arredondo MD [address] [place] [phone] 07/20/2024 8:30 AM EDT Office Visit Internal Medicine - [place] [address] [facility] [address] [place] [address] Tyrell Li NP [address] [address] 08/09/2024 9:00 AM EDT Office Visit Endocrinology - [address] [phone] Bryanna Boateng MD [address] [place] [address] documented as of this encounter Visit Diagnoses Not on filedocumented in this encounter Care Teams Lock Tender Chief Operator Relationship Specialty Start Date End Date Sarah Sebastian MD [address] [phone] PCP - General Internal Medicine 03/14/24 documented as of this encounter
--- OUTSIDE RECORDS SUMMARY | 2024-06-01 10:07 | XMS_ITS | Clinical Summary ---
Author Organization [facility] Address [address] [facility] [address] [place] [address] Phone Care Team Providers Care Home Mortgage Disclosure Act Specialist Name Role Phone Sarah Sebastian MD Primary Care Provider [phone] Allergies Active Allergy Reactions Criticality Noted Date Comments Acetaminophen 11/22/2020 Celecoxib 11/25/2020 Erythromycin 11/22/2020 Latex 10/11/2013 Penicillins 11/22/2020 Oxycodone-Acetaminophen 11/22/2020 Albuterol 11/22/2020 Sulfa Antibiotics 11/22/2020 Sulfadiazine 11/22/2020 Trazodone 11/22/2020 Medications albuterol HFA (PROVENTIL HFA;VENTOLIN HFA) 108 (90 Base) MCG/ACT inhaler Inhale 2 puffs every 6 (six) hours if needed for wheezing Active albuterol 1.25 MG/3ML nebulizer solution Take 1.25 mg by nebulization every 6 (six) hours if needed for wheezing Active busPIRone (BUSPAR) 5 MG tablet Take 5 mg by mouth 2 (two) times a day Active calcium gluconate 500 MG tablet Take 500 mg by mouth 1 (one) time each day Active cetirizine (ZyrTEC) 10 MG tablet Take 10 mg by mouth 1 (one) time each day Active Cholecalciferol (Vitamin D) 25 MCG (1000 UT) tablet Take 1 tablet by mouth 1 (one) time each day Active cyanocobalamin 500 MCG tablet Take 500 mcg by mouth 1 (one) time each day Active DULoxetine (CYMBALTA) [address] capsule Take 60 mg by mouth 2 (two) times a day Do not crush or chew. Active Insulin Syringe 30G X 5/16 0.5 ML misc Active insulin aspart (NovoLOG) 100 UNIT/ML injection Inject under the skin 3 (three) times a day before meals Active insulin glargine (LANTUS) 100 UNIT/ML injection Inject 10 Units under the skin 1 (one) time each day in the morning Active levalbuterol (XOPENEX HFA) 45 MCG/ACT inhaler Inhale 1-2 puffs every 6 (six) hours if needed for wheezing Active lidocaine (LMX) 4 % cream Apply 1 application topically 4 (four) times a day if needed for mild pain Active melatonin 3 MG tablet Take 3 mg by mouth 2 (two) times a day Active Multiple Vitamins-Minera ls (Systane ICaps AREDS2) capsule Take 1 capsule by mouth 1 (one) time each day with food Active zolpidem (AMBIEN) 10 MG tablet Take 10 mg by mouth at night if needed for sleep Active amitriptyline (ELAVIL) 50 MG tablet Take 50 mg by mouth every night Active atenolol (TENORMIN) 25 MG tablet Take 25 mg by mouth 1 (one) time each day Active atorvastatin (LIPITOR) 80 MG tablet Take 40 mg by mouth 1 (one) time each day Active furosemide (LASIX) 40 MG tablet Take 40 mg by mouth 4 (four) times a day Active montelukast (SINGULAIR) 10 MG tablet Take 10 mg by mouth 1 (one) time each day Active pantoprazole (PROTONIX) 40 MG EC tablet Take 40 mg by mouth 1 (one) time each day before breakfast Do not crush, chew, or split. Active Trelegy Ellipta 100-62.5-25 MCG/INH aerosol powder INHALE 1 PUFF BY MOUTH DAILY 1 Active Daliresp 500 MCG tablet Take 1 tablet by mouth 1 (one) time each day 1 Active carisoprodol (SOMA) 350 MG tablet Take 350 mg by mouth if needed for muscle spasms Supposed to be daily but she only takes as needed Active ARIPiprazole (ABILIFY) 5 MG tablet Take 5 mg by mouth 1 (one) time each day Active Ubrogepant (Ubrelvy) 100 MG tablet Take 100 mg by mouth if needed Active topiramate (Topamax) 25 MG tablet Take 25 mg by mouth 0 Active Ozempic, 0.25 or 0.5 MG/DOSE, 2 MG/3ML solution pen-injector Inject 0.5 mL under the skin every 7 (seven) days Active Lutein 20 MG tablet Take 1 tablet by mouth in the morning and 1 tablet in the evening. Take with meals. Active Biotin 1000 MCG chewable tablet Chew 1 (one) time each day Active Garlic 400 MG tablet Take 400 mg by mouth 1 (one) time each day Active Active Problems Problem Noted Date Diagnosed Date Stage 3a chronic kidney disease 09/28/2021 Analgesic nephropathy 09/28/2021 Congestive heart failure, not otherwise specifie d 09/28/2021 Obstructive sleep apnea syndrome 11/25/2020 Asthma 11/22/2020 Diabetes mellitus, not otherwise specified 11/22 Hypertension 11/22/2020 Dyslipidemia 11/22/2020 Fibromyalgia 11/22/2020 Nicotine dependence, cigarettes, uncomplicated 0 11/22/2020 Overweight 11/22/2020 Other recurrent depressive disorder 11/22/2020 Acute nontraumatic kidney injury 11/22/2020 Migraine 09/05/2015 Resolved Problems Problem Noted Date Diagnosed Date Resolved Date Chronic kidney disease 11/22/202009/28 Anxiety disorder, not otherwise specified 11/22/2020 11/25/2020 Arthropathy, unspecified, site unspecified 11/22/2020 11/25/2020 Esophageal reflux 11/22/2020 11/25/2020 Insomnia 11/22/2020 11/25/2020 Irritable bowel syndrome 11/22/2020 Chronic obstructive pulmonary disease 11/22/2020 11/25/2020 Immunizations Name Administration Dates Next Due Influenza TIV (IM) 01/15/2017 Influenza, MDCK, PF, Quadrivalent 03/30/2018 Family History Medical History Relation Comments Cancer Father Relation Status Comments Father Social History Tobacco Use Types Packs/Day Years Used Date Smoking Tobacco: Every Day Cigarettes Smokeless Tobacco: Never Tobacco Cessation:Ready to Q uit: No; Counseling Given: Yes Alcohol Use Standard Drinks/Week Comments Not Currently 0 (1 standard drink = 0.6 oz pur e alcohol) Comments Unknown Sex and Gender Information Value Date Recorded Sex Assigned at Not on file Legal Sex Female 9:07 AM EDT Gender Identity Not on file Sexual Orientation Not on file Last Filed Vital Signs Vital Sign Reading Time Taken Comments Blood Pressure 125/62 10/06/2023 11:23 AM EDT Pulse 84 10/06/2023 11:23 AM EDT Temperature - - Respiratory Rate - - Oxygen Saturation 97% 10/06/2023 11:23 AM EDT Inhaled Oxygen Concentration - - Weight 83.6 kg (184 lb 3.2 oz) 10/06/2023 11:23 AM EDT Height 162.6 cm (5' 4 ) 10/06/2023 11:23 AM EDT Body Mass Index 31.62 10/06/2023 11:23 AM EDT Plan of Treatment Upcoming Encounters Date Type Department Care Team (Late st Contact Info) Description 10/04/2024 10:00 AM EDT Office Visit [facility] [address] [address] Brice Don MD [address] [address] Health Maintenance Due Date Last Done Comments Breast Cancer Screening 1955 Colorectal Cancer Screening: Annual FOBT 2002 Colorectal Cancer Screening: Colonoscopy 2002 Colorectal Cancer Screening: Sigmoidoscopy 2002 Pneumococcal Vaccine: 65+ Years (2 of 2 - PCV) 01/18/2010 01/18/2009 Diabetes: Ophthalmology Exam 11/22/2020 Diabetes: Pedal Pulse Checked 11/22/2020 Diabetes: Sensory Foot Exam 11/22/2020 Diabetes: Visual Foot Exam 11/22/2020 Diabetes: Hemoglobin A1C 04/16/2021 01/14/2021 Influenza Vaccine (#1) 2023 3, 03/30/2018, 01/15/2017 Hepatitis B Vaccine Aged Out No longe r eligible based on patient's age to complete this topic Procedures Procedure Name Priority Date/Time Associated Diagnosis Comments HEMOGLOBIN A1C Routine 01/14/2021 1:36 PM EDT Stage 3a chronic kidney disease (HCC) Essential (primary) hypertension Asthma, not otherwise specified Type 2 diabetes mellitus with other specified complication (HCC) Other hyperlipidemia Fibromyalgia Nicotine dependence, cigarettes, uncomplicated, not otherwise specified O/E - weight <Unspecified obesity> Other recurrent depressive disorder (HCC) Chronic obstructive pulmonary disease, not otherwise specified (HCC) Obstructive sleep apnea syndrome from Last 3 Months or Most Recently Relevant to Health Maintenance Results * (ABNORMAL) Hemoglobin A1c (01/14/2021 1:36 PM EDT) Glycated Hemoglobin 7.3(H) <6.5 % [facility]) Estimated Average Glucose 163 mg/dL [facility]) Performing Lab Performing Lab(H) [facility]) Comment: [employer] a member of [address] [address] [employer] Inspector - Tash Su MD Blood (Blood, Venous) 01/14/2021 1:36 PM EDT 01/14/2021 1:36 PM EDT us Brice Don MD LAB BLOOD ORDERABLES Final Re sult [facility] ([facility]) from Last 3 Months or Most Recently Relevant to Health Maintenance Insurance [employer] 1,2,3 ([employer]) [facility] [employer] 1,2,3 (VAC[employer]) Care Teams Home Mortgage Disclosure Act Specialist Relationship Specialty Start Date End Date Sarah Sebastian MD [address] [address] PCP - General Internal Medicine 06/08/22
--- OUTSIDE RECORDS SUMMARY | 2024-06-01 10:07 | XMS_ITS | Encounter Summary ---
Author Organization [facility] Address [address] [place] [address] Care Team Providers Care Supervisor Coil Winding Name Role Phone Sarah Sebastian MD Primary Care Provider [phone] Reason for Visit * Reason Comments Blood Sugar Problem Encounter Details Date Type Department Care Team ([facility] Contact Info) Description 05/12/2024 9:45 AM EST Office Visit Endocrinology - [place] [address] [place] [address] Bryanna Boateng MD [address] [place] [address] Type 2 diabetes mellitus with other specified complication, with long-term current use of insulin ([facility]) (Primary Dx) Social History Tobacco Use Types Packs/Day Years Used Date Smoking Tobacco: Every Day Smokeless Tobacco: Never Tobacco Cessation:Ready to Q uit: Not Asked; Counseling Given: Not Answered Alcohol Use Standard Drinks/Week Comments No 0 (1 standard drink = 0.6 oz pur e alcohol) Comments Unknown Sex and Gender Information Value Date Recorded Sex Assigned at Not on file Legal Sex Female 6:15 AM EST Gender Identity Not on file Sexual Orientation Not on file documented as of this encounter Last Filed Vital Signs Vital Sign Reading Time Taken Comments Blood Pressure 111/62 05/12/2024 9:49 AM EST Pulse 89 05/12/2024 9:49 AM EST Temperature 36.2 ??C (97.2 ??F) 05/12/2024 9:49 AM ES T Respiratory Rate - - Oxygen Saturation 97% 05/12/2024 9:49 AM EST Inhaled Oxygen Concentration - - Weight 85.7 kg (189 lb) 05/12/2024 9:49 AM EST Height 162.6 cm (5' 4 ) 05/12/2024 9:49 AM EST Body Mass Index 32.44 05/12/2024 9:49 AM EST documented in this encounter Progress Notes * Bryanna Boateng MD - 05/12/2024 9:45 AM EST Continue to monitor, scan often. Go up on short acting before breakfast insulin as discussed. * Bryanna Boateng MD - 05/12/2024 9:45 AM EST CHIEF COMPLAINT: Blood Sugar Problem IDENTIFIER: Tash Valero is a 68 y.o. old female. HPI: 68 years old F following for DM type 2. Last seen by me 11/2023 Diagnosed since many years. Currently on Insulin lantus at 12 units daily NL 18 units before nreakfast for lunch and dinner 12-16 units. ozempic at 0.5 mg weekly. Checking sugars is on [place] 2. Data shows [address], in target range 75%, above 25 % below 0%. She gets labs at [facility], last A1c per pt from 11/2023 at 7.3 , sensor daa capture 57%. ROS: No new complaints. She was on steroids since last visit. PAST MEDICAL HISTORY: Patient Active Problem List Diagnosis Date Noted Other recurrent depressive disorders ([facility]) 04/03/2024 Disorder of nervous system due to type 2 diabetes mellitus ([facility]) 04/03/2024 Stage 3a chronic kidney disease ([facility]) 04/03/2024 Chest pain 01/13/2022 RUQ abdominal pain 07/18/2018 Dysphagia 06/21/2018 Dry eyes 02/02/2017 Profound vision impairment 02/02/2017 Asthma 01/24/2017 Chronic obstructive pulmonary disease (COPD) ([facility]) 01/24/2017 Irritable bowel syndrome 01/07/2017 Diabetes mellitus type 2, uncomplicated ([facility]) 11/02/2016 Hypercholesterolemia 11/02/2016 Osteopenia 11/02/2016 Hypertension 05/06/2016 Lumbar radiculopathy 03/30/2016 Nicotine dependence 12/24/2015 Obstructive sleep apnea 12/24/2015 Fibromyalgia 12/17/2015 Gastroesophageal reflux disease 10/30/2015 Migraine headache 09/05/2015 Pulmonary nodule 05/15/2015 Essential tremor 01/17/2015 Hearing loss 01/17/2015 Memory loss 01/17/2015 Internal hemorrhoids 09/24/2014 History of positive PPD, treatment status unknown 05/16/2013 Anxiety 02/07/2013 Edema 09/20/2012 Incomplete emptying of bladder 06/22/2012 Past Surgical History: Procedure Laterality Date APPENDECTOMY PROCEDURE: HISTORICAL APPENDECTOMY BREAST SURGERY Bilateral PROCEDURE: [place] UNLISTED PROCEDURE BREAST CARPAL TUNNEL RELEASE Bilateral PROCEDURE: HISTORICAL CARPAL TUNNEL REL HYSTERECTOMY PROCEDURE: HISTORICAL HYSTERECTOMY SOCIAL HISTORY: Social History Tobacco Use Smoking status: Every Day Smokeless tobacco: Never Substance Use Topics Alcohol use: No FAMILY HISTORY: No family history on file. No family status information on file. MEDICATIONS DISCONTINUED/REORDERED: There are no discontinued medications. ACTIVE MEDICATIONS: Outpatient Medications Marked as Taking for the 05/12/24 encounter (Office Visit) with Bryanna Boateng MD Medication Sig Dispense Refill albuterol 2.5 mg /3 mL (0.083 %) nebulizer solution Take 3 mL (2.5 mg total) by nebulization every 4 (four) hours if needed. amitriptyline (ELAVIL) 50 mg tablet Take 10 tablets (500 mg total) by mouth at bedtime. ARIPiprazole (ABILIFY) 10 mg tablet Take 5 mg by mouth at bedtime as needed. ascorbic acid (VITAMIN C) 1,000 mg tablet Take 1 tablet (1,000 mg total) by mouth 1 (one) time eachday. atenoloL (TENORMIN) 25 mg tablet Take 1 tablet (25 mg total) by mouth 1 (one) time each day. atorvastatin (LIPITOR) 80 mg tablet Take 0.5 tablets by mouth 1 (one) time each day. blood-glucose meter kit E11.9 busPIRone (BUSPAR) 5 mg tablet Take 1 tablet (5 mg total) by mouth 2 (two) times a day. carboxymethylcellulose PF (Refresh Plus) 0.5 % ophthalmic solution Administer into affected eye(s) every 4 (four) hours. as needed cetirizine (ZyrTEC) 10 mg capsule Take by mouth 1 (one) time each day. cholecalciferol (VITAMIN D-3) 25 mcg (1,000 unit) tablet Take 1 tablet (1,000 Units total) by mouth1 (one) time each day. DULoxetine (CYMBALTA) [address] capsule Take 1 capsule (60 mg total) by mouth 1 (one) time each day. famotidine (PEPCID) 40 mg tablet TAKE 1 TABLET BY MOUTH TWICE DAILY 180 tablet 1 flash glucose sensor (FreeStyle [place] 2 Sensor) kit USE DIRECTED AND CHANGE EVERY 14 DAYS 6 each1 tohwuyktwkm-pqirfqiuuluv-wvtitxzzmc (Trelegy Ellipta) 100-62.5-25 mcg inhaler Inhale 1 puff (100 mcg total) by mouth 1 (one) time each day. FreeStyle [place] 2 Sensor kit USE DIRECTED TO TEST BLOOD SUGAR; CHANGE EVERY 14 DAYS 6 each 1 furosemide (LASIX) 40 mg tablet Take 2 tablets (80 mg total) by mouth 2 (two) times a day. gabapentin (NEURONTIN) 300 mg capsule Take 1 capsule (300 mg total) by mouth 2 (two) times a day. insulin glargine (Lantus Solostar U-100 Insulin) 100 unit/mL (3 mL) injection pen Inject 10 Units under the skin 2 (two) times a day. levalbuterol (XOPENEX HFA) 45 mcg/actuation inhaler Inhale 1-2 puffs by mouth. 4-6 HOURS NEEDED FOR WHEEZING; NO MORE THAN 12 PUFFS PER DAY montelukast (SINGULAIR) 10 mg tablet Take 1 tablet (10 mg total) by mouth at bedtime. NovoLOG Flexpen U-100 Insulin 100 unit/mL (3 mL) injection pen INJECT 12 UNITS UNDER THE SKIN THREETIMES DAILY(BEFORE MEALS) PER SLIDING SCALE; UP TO 40 UNITS PER DAY 15 mL 1 OMEGA-3 FATTY ACIDS-FISH OIL ORAL Take 122 mg by mouth 2 (two) times a day. pen needle, diabetic 32 gauge x /32 needle USE FOUR TIMES DAILY DIRECTED ramelteon (ROZEREM) 8 mg tablet Take 0.5 tablets (4 mg total) by mouth at bedtime. roflumilast (DALIRESP) 500 mcg tablet Take 1 tablet (500 mcg total) by mouth 1 (one) time each day. semaglutide (Ozempic) 0.25 mg or 0.5 mg (2 mg/3 mL) injection pen Inject 0.5 mg under the skin every 7 (seven) days. topiramate (TOPAMAX) 50 mg tablet TAKE 1 TABLET BY MOUTH AT BEDTIME 90 tablet 2 vitamins A,C,S-tyii-oodohs (PreserVision AREDS) 4,296 mcg-226 mg-90 mg capsule Take 1 capsule by mouth 2 (two) times a day. ALLERGIES: Allergies Allergen Reactions Acetaminophen Adhesive Tape-Silicones Albuterol Celecoxib Erythromycin Latex Oxycodone-Acetaminophen Penicillins Sulfa (Sulfonamide Antibiotics) Trazodone PHYSICAL EXAM: Visit Vitals BP 111/62 Pulse 89 Temp 36.2 ??C (97.2 ??F) (Temporal) Ht 1.626 m (64 ) Wt 85.7 kg (189 lb) SpO2 97% BMI 32.44 kg/m?? Smoking Status Every Day BSA 1.91 m?? APPEARANCE: Alert and in no acute distress EYES: EOMI. No resp distress NEURO: Awake, alert LABS: Lab Results Component Value Date HGBA1C 7.5 (A) 02/10/2023 CHOL 148 02/10/2023 LDL 66 02/10/2023 HDL 52 02/10/2023 TRIG 153 (A) 02/10/2023 IMPRESSION: 1. Type 2 diabetes mellitus with other specified complication, with long-term current use of insulin ([facility]) PLAN: Had a detailed discussion, mostly doing fair, issue with bump with breakfast, asked to go up to 22 units. There is limited capture, asked to scan often and keep sensor close by. Shall be working on diet, she is getting labs from [facility], shall bring it in next visit. Asked to let us know if numbers running too high or too low. All questions answered Medication and lab orders: No orders of the defined types were placed in this encounter. Other orders: None Bryanna Boateng MD on 05/12/2024 at 10:28 AM EST documented in this encounter Plan of Treatment Upcoming Encounters Date Type Department Care Team (Late st Contact Info) Description 07/06/2024 9:30 AM EDT Telemedicine [facility] [address] [facility] [address] [place] [phone] Peg Arredondo MD [address] [place] [phone] 07/20/2024 8:30 AM EDT Office Visit Internal Medicine - [place] [address] [facility] [address] [place] [phone] Tyrell Li NP 175 [facility] 200 [place] [address] 08/09/2024 9:00 AM EDT Office Visit Endocrinology - [address] [address] Bryanna Boateng MD [address] [place] [phone] documented as of this encounter Visit Diagnoses Diagnosis Type 2 diabetes mellitus with other specified complication, with long-term current use of insulin ([facility])- Primary documented in this encounter Care Teams Supervisor Coil Winding Relationship Specialty Start Date End Date Sarah Sebastian MD [address] [phone] PCP - General Internal Medicine 03/14/24 documented as of this encounter
--- OUTSIDE RECORDS SUMMARY | 2024-06-01 10:07 | XMS_ITS | Encounter Summary ---
Author Organization [facility] Address [address] [place] [address] Care Team Providers Care Endoscope Technician Name Role Phone Sarah Sebastian MD Primary Care Provider [phone] Reason for Visit * Reason Onset Date Comments Dizziness 04/18/2024 Chest Pain 04/18/2024 Encounter Details Date Type Department Care Team (Late st Contact Info) Description 04/18/2024 Telephone Internal Medicine - [place] [address] [facility] [address] [place] [phone] Sarah Sebastian MD [address] [address] [place] [phone] Dizziness; Chest Pain Social History Tobacco Use Types Packs/Day Years [...] as of this encounter Progress Notes * Tyrell Li NP - 04/18/2024 2:48 PM EST Thank you for the heads up, we will address these issues at the next visit. * Ese Ferrera RN - 04/18/2024 2:17 PM EST FYI from [facility], pt chest pain, dizziness, and orthostatic hypotension - pt has upcoming appt 04/20 Call to Stacy ROMERO # [phone], spoke w/ her. She saw the pt today. Pt having chest pain and dizziness ongoing for about 6 months. Had told the [facility] the PCP was aware of chest pain, has had cardiac testing done in the past - echo, stress testing -unsure if this was due to the chest pain or a different issue. The pt has been taking occasional ibuprofen for her chest pain, which is not recommended for her, but she says it is the only thing thathelps. During the assessment, the [facility] pressed on the pt's sternum and pain was much increased - believes the issue is costochondritis - she suggested this to the pt and the pt says she was never diagnosed with that in the past, but also appeared to be familiar with the term During assessment, BP was checked 104/58 sitting 90/50 standing - pt had increase in dizziness while standing. Meclizine is not effective for pt's dizziness. [facility] is calling today to make sure we are aware of pt issues and concerns prior to her upcoming appt on 04/20 * Bambi Delaney - 04/18/2024 2:07 PM EST Bre moore [facility] from [facility] called and stated that the patient has been having dizziness and chest painfor quite some time and the dizziness got worse from sitting to standing. Patients BP was 104/58 sitting and standing it was 90/50. Bre pressed on patients sternum and she was very uncomfortable andpainful for the patient. Please advise Cb# [phone] documented in this encounter Plan of Treatment Upcoming Encounters Date Type Department Care Team (Late st Contact Info) Description 07/06/2024 9:30 AM EDT Telemedicine [facility] [address] [facility] [address] [place] [address] Peg Arredondo MD [address] [place] [address] 07/20/2024 8:30 AM EDT Office Visit Internal Medicine - [place] [address] [phone] Tyrell Li, NICK [address] [address] 08/09/2024 9:00 AM EDT Office Visit Endocrinology - [address] [address] Bryanna Boateng MD [address] [place] [phone] documented as of this encounter Visit Diagnoses Not on filedocumented in this encounter Care Teams Endoscope Technician Relationship Specialty Start Date End Date Sarah Sebastian MD [address] [address] PCP - General Internal Medicine 03/14/24 documented as of this encounter
--- OUTSIDE RECORDS SUMMARY | 2024-06-01 10:07 | XMS_ITS | Clinical Summary ---
Author Organization [address] [place] [address] Address [address] [place] [address] Phone Care Team Providers Care Supervisor Frame Assembly Name Role Phone Gilda Sebastian MD Primary Care Provider [phone] Allergies Active Allergy Reactions Criticality Noted Date Comments Acetaminophen 04/15/2017 Adhesive Tape-Silicones 07/30/2022 Albuterol 04/15/2017 Celecoxib 07/26/2020 Erythromycin 09/30/2009 Latex 10/11/2013 Oxycodone-Acetaminophen 09/30/2009 Penicillins 04/15/2017 Sulfa (Sulfonamide Antibiotics) 04/05 Trazodone 04/15/2017 Medications mineral oil, light/mineral oil (SOOTHE XP OPHT) Administer into affected eye(s) at bedtime as needed. Active BIOTIN ORAL Take 1 tablet by mouth 1 (one) time each day. Active blood-glucose meter kit E11.9 10/23/19 22 Active calcium carbonate (CALCIUM 500 ORAL) Take 1 tablet by mouth 1 (one) time each day. Active flash glucose scanning reader (FreeStyle [place] 2 [place]) misc 1 Device by Not Applicable route continuously. 11/19/19 22 Active NON FORMULARY Inhale by mouth at bedtime. Active CYANOCOBALAMIN , VITAMIN B-12, ORAL Take 500 mcg by mouth 1 (one) time each day. Active diclofenac sodium (VOLTAREN TOP) Apply topically. Active FREESTYLE LANCETS MISC TEST 3 TO 4 TIMES DAILY 03/24/20 18 Active garlic 400 mg tablet Take 1 tablet by mouth 1 (one) time each day. Active glucose blood test strip 1 each by Other route 2 (two) times a day. E11.9 10/23/19 22 Active blood-glucose meter kit USE TO TEST 3 TO 4 TIMES DAILY 03/24/20 18 Active pen needle, diabetic 32 gauge x 32 needle USE FOUR TIMES DAILY DIRECTED 12/28/19 24 Active LIDOCAINE TOP Apply topically 4 (four) times a day if needed. Active LIDOCAINE HCL TOP every 8 (eight) hours if needed. 4% Active lutein 20 mg capsule Take 1 capsule by mouth 1 (one) time each day. Active magnesium 250 mg tablet Take 1 tablet by mouth 1 (one) time each day. Active multivitamin (MULTIPLE VITAMINS ORAL) Take 1 tablet by mouth 1 (one) time each day. Active OMEGA-3 FATTY ACIDS-FISH OIL ORAL Take 122 mg by mouth 2 (two) times a day. Active lancets lancets 1 each by Not Applicable route 2 (two) times a day. E11.9 10/23/19 22 Active PANTOPRAZOLE SODIUM, BULK, MISC Take 40 mg by mouth 1 (one) time each day. Active ZINC ORAL Take 1 tablet by mouth 1 (one) time each day. Active albuterol 2.5 mg /3 mL (0.083 %) nebulizer solution Take 3 mL (2.5 mg total) by nebulization every 4 (four) hours if needed. 06/05/19 11 Active amitriptyline (ELAVIL) 50 mg tablet Take 10 tablets (500 mg total) by mouth at bedtime. Active ARIPiprazole (ABILIFY) 10 mg tablet Take 5 mg by mouth at bedtime as needed. Active ascorbic acid (VITAMIN C) 1,000 mg tablet Take 1 tablet (1,000 mg total) by mouth 1 (one) time each day. Active atenoloL (TENORMIN) 25 mg tablet Take 1 tablet (25 mg total) by mouth 1 (one) time each day. Active atorvastatin (LIPITOR) 80 mg tablet Take 0.5 tablets by mouth 1 (one) time each day. Active busPIRone (BUSPAR) 5 mg tablet Take 1 tablet (5 mg total) by mouth 2 (two) times a day. Active carboxymethylc ellulose PF (Refresh Plus) 0.5 % ophthalmic solution Administer into affected eye(s) every 4 (four) hours. as needed Active cetirizine (ZyrTEC) 10 mg capsule Take by mouth 1 (one) time each day. Active cholecalcifero l (VITAMIN D-3) 25 mcg (1,000 unit) tablet Take 1 tablet (1,000 Units total) by mouth 1 (one) time each day. Active cyclobenzaprin e (FLEXERIL) 10 mg tablet Take 1 tablet (10 mg total) by mouth 3 (three) times a day if needed for muscle spasms. 09/28/19 24 Active DULoxetine (CYMBALTA) [address] capsule Take 1 capsule (60 mg total) by mouth 1 (one) time each day. Active fluticasone-um eclidinium-narayan anterol (Trelegy Ellipta) 100-62.5-25 mcg inhaler Inhale 1 puff (100 mcg total) by mouth 1 (one) time each day. Active furosemide (LASIX) 40 mg tablet Take 2 tablets (80 mg total) by mouth 2 (two) times a day. Active gabapentin (NEURONTIN) 300 mg capsule Take 1 capsule (300 mg total) by mouth 2 (two) times a day. Active insulin glargine (Lantus Solostar U-100 Insulin) 100 unit/mL (3 mL) injection pen Inject 10 Units under the skin 2 (two) times a day. 12/02/19 24 Active levalbuterol (XOPENEX HFA) 45 mcg/actuation inhaler Inhale 1-2 puffs by mouth. 4-6 HOURS NEEDED FOR WHEEZING; NO MORE THAN 12 PUFFS PER DAY 04/15/19 18 Active montelukast (SINGULAIR) 10 mg tablet Take 1 tablet (10 mg total) by mouth at bedtime. Active ramelteon (ROZEREM) 8 mg tablet Take 0.5 tablets (4 mg total) by mouth at bedtime. 03/18/20 21 Active roflumilast (DALIRESP) 500 mcg tablet Take 1 tablet (500 mcg total) by mouth 1 (one) time each day. Active vitamins A,C,E-zinc-utility helicopter repairer per (PreserVision AREDS) 4,296 mcg-226 mg-90 mg capsule Take 1 capsule by mouth 2 (two) times a day. Active NovoLOG Flexpen U-100 Insulin 100 unit/mL (3 mL) injection pen INJECT 12 UNITS UNDER THE SKIN THREE TIMES DAILY(BEFORE MEALS) PER SLIDING SCALE; UP TO 40 UNITS PER DAY 15 mL 1 03/15/20 24 Active topiramate (TOPAMAX) 50 mg tablet TAKE 1 TABLET BY MOUTH AT BEDTIME 90 tablet 2 04/03/20 24 Active famotidine (PEPCID) 40 mg tablet TAKE 1 TABLET BY MOUTH TWICE DAILY 180 tablet 1 04/07/19 25 Active flash glucose sensor (FreeStyle [place] 2 Sensor) kit USE DIRECTED AND CHANGE EVERY 14 DAYS 6 each 04/18/19 25 Active FreeStyle [place] 2 Sensor kit USE DIRECTED TO TEST BLOOD SUGAR; CHANGE EVERY 14 DAYS 6 each 04/18/19 25 Active Ozempic 0.25 mg or 0.5 mg (2 mg/3 mL) injection penIndications :Type 2 diabetes mellitus without complication, with long-term current use of insulin ([facility]) INJECT 0.5MG INTO THE SKIN ONCE EVERY WEEK 3 mL 05/22/19 25 Active semaglutide (Ozempic) 0.25 mg or 0.5 mg (2 mg/3 mL) injection pen Inject 0.5 mg under the skin every 7 (seven) days. 12/28/19 24 025 Discontinued Active Problems Problem Noted Date Diagnosed Date Other recurrent depressive disorders 04/03/2024 Disorder of nervous system due to type 2 diabete s mellitus 04/03/2024 Stage 3a chronic kidney disease 04/03/2024 Chest pain 01/13/2022 Overview (02/14/2024): Last Assessment & Plan: Patient complains of chest discomfort will be referred for nuclear medicine stress testing.Pain is somewhat atypical but she does have risk factors. And some moderate shortness of breath. Still smokes has active bronchitis at times no pain on palpation of the chest RUQ abdominal pain 07/18/2018 Dysphagia 06/21/2018 Dry eyes 02/02/2017 Profound vision impairment 02/02/2017 Asthma 01/24/2017 Chronic obstructive pulmonary disease (COPD) Irritable bowel syndrome 01/07/2017 Diabetes mellitus type 2, uncomplicated 11/03/19 17 Hypercholesterolemia 11/02/2016 Osteopenia 11/02/2016 Hypertension 05/06/2016 Lumbar radiculopathy 03/30/2016 Nicotine dependence 12/24/2015 Obstructive sleep apnea 12/24/2015 Overview (02/14/2024): CPAP Fibromyalgia 12/17/2015 Gastroesophageal reflux disease 10/30/2015 Migraine headache 09/05/2015 Pulmonary nodule 05/15/2015 Essential tremor 01/17/2015 Hearing loss 01/17/2015 Memory loss 01/17/2015 Internal hemorrhoids 09/24/2014 History of positive PPD, treatment status unknow n 05/16/2013 Anxiety 02/07/2013 Edema 09/20/2012 Incomplete emptying of bladder 06/22/2012 Encounters Date Type Department Care Team Description 05/26/2024 Telephone Internal Medicine [facility] [address] [phone] Gilda Sebastian MD PT1 05/12/2024 9:45 AM EST Office Visit [address] [address] Bryanna Boateng MD Type 2 diabetes mellitus with other specified complication, with long-term current use of insulin (CMS/[facility]) (Primary Dx) 05/04/2024 Telephone Internal Medicine [facility] [address] [phone] Gilda Sebastian MD Results (Chest x-ray done at [facility]) 04/20/2024 10:52 AM EST - 04/20/2024 11:59 PM EST Hospital Encounter [facility] Xray [address] [place] [address] Costochondritis Discharge Disposition: Home or Self Care 04/20/2024 10:15 AM EST Office Visit Internal Medicine [facility] [address] [phone] Tyrell Li NP Costochondritis (Primary Dx); Dizziness; Left leg pain; Type 2 diabetes mellitus without complication, with long-term current use of insulin (CMS/HCC); Hypercholesterolemia; Fibromyalgia; Gastroesophageal reflux disease, unspecified whether esophagitis present; BMI 31.0-31.9,adult; Chronic obstructive pulmonary disease, unspecified COPD type (CMS/HCC); Mild intermittent asthma, unspecified whether complicated; Obstructive sleep apnea 04/18/2024 Telephone Internal Medicine - [place] [address] [place] [address] Gilda Sebastian MD Dizziness; Chest Pain 04/06/2024 Telephone [facility] [address] [facility] [address] [place] [address] Ephraim Parker MD Appointment 03/20/2024 8:00 AM EST Ancillary Procedure [facility] [address] [place] [address] Lightheadedness; Shortness of breath 03/14/2024 9:00 AM EST Ancillary Procedure [facility] [address] [place] [address] Chest pain, unspecified type from Last 3 Months Immunizations Name Administration Dates Next Due Influenza Quadravalent, MDCK , 0.5ml, preservative free (Flucelvax) 6mo and older 03/30/2018 Influenza trivalent, 0.5mL (Fluad) 65yo and olde r 02/10/2023 Influenza trivalent, 0.5mL, preservative free (Fluarix; FluLaval; Fluzone) ages 6mo and older (Afluria) 3 years and older 01/15/2017 Surgical History Surgery Date Site/Laterality Comments HYSTERECTOMY PROCEDURE: HISTORICAL HYSTERECTOMY APPENDECTOMY PROCEDURE: HISTORICAL APPENDECTOMY CARPAL TUNNEL RELEASE Bilateral PROCEDURE: HISTORICAL CARPAL TUNNEL REL BREAST SURGERY Bilateral PROCEDURE: IA UNLISTED PROCEDURE BREAST Medical History Medical History Date Comments Diabetes mellitus type 2, un complicated (CMS/HCC) 11/02/2016 DX:Diabetes mellitus type 2, uncomplicated ([facility]) Anxiety 02/07/2013 DX:Anxiety Asthma 01/24/2017 DX:Asthma Edema 09/20/2012 DX:Edema Essential tremor 01/17/2015 DX:Essential tr emor Fibromyalgia 12/17/2015 DX:Fibromyalgia Gastroesophageal reflux disease 10/30/2015 DX:Gastroesophageal reflux disease Hearing loss 01/17/2015 DX:Hearing loss History of positive PPD, jordon atment status unknown 05/16/2013 DX:History of positive PPD, treatment status unknown Hypercholesterolemia 11/02/2016 DX:Hypercho lesterolemia Hypertension 05/06/2016 DX:Hypertension Incomplete emptying of bladder 06/22/2012 D X:Incomplete emptying of bladder Internal hemorrhoids 09/24/2014 DX:Internal hemorrhoids Irritable bowel syndrome 01/07/2017 DX:Irri table bowel syndrome Lumbar radiculopathy 03/30/2016 DX:Lumbar r adiculopathy Memory loss 01/17/2015 DX:Memory loss Migraine headache 09/05/2015 DX:Migraine he adache Multiple allergies 05/12/2013 DX:Multiple a llergies Osteopenia 11/02/2016 DX:Osteopenia Pulmonary nodule 05/15/2015 DX:Pulmonary no dule Nicotine dependence 12/24/2015 DX:Nicotine dependence Profound vision impairment 02/02/2017 DX:Pr ofound vision impairment Chronic obstructive pulmonar y disease (COPD) ([facility]) 01/24/2017 DX:Chronic obstructive pulmo nary disease (COPD) ([facility]) Dry eyes 02/02/2017 DX:Dry eyes Obstructive sleep apnea 12/24/2015 DX:Obstr uctive sleep apnea; COMMENT: CPAP Social History Tobacco Use Types Packs/Day Years [...] on file Sexual Orientation Not on file Obstetrics History Last Filed Vital Signs Vital Sign Reading [...] Mass Index 32.44 05/12/2024 9:49 AM EST Plan of Treatment Upcoming Encounters Date Type Department Care Team (Late st Contact Info) Description 07/06/2024 9:30 AM EDT Telemedicine [facility] - [place] [address] [facility] [address] [place] [phone] Peg Arredondo MD [address] [place] [phone] 07/20/2024 8:30 AM EDT Office Visit Internal Medicine - [place] [address] [facility] [address] [place] [phone] Tyrell Li NP 175 [facility] [address] [place] [address] 08/09/2024 9:00 AM EDT Office Visit Endocrinology [address] [phone] Bryanna Boateng MD [address] [place] [address] Health Maintenance Due Date Last Done Comments Diabetes: Annual Foot Exam 11/10/1963 Diabetes: Annual Retina Eye Exam 11/10/1963 Hepatitis A Vaccines (1 of 2 - Risk 2-dose series) 1972 RSV Immunization Patients 60+ Years Old (1 - Risk 60-74 years 1-dose series) 2013 Falls Risk Assessment 03/08/2022 Hepatitis C Screening 03/08/2022 Osteoporosis Screening (Bone Density Screening) 03/08/2022 Social Influencers of Health Screening 03/08/2022 Diabetes: Annual Urine Albumin-Creatinine Ratio (uACR) 03/20/2022 04/29/2020 DTaP,Tdap,and Td Vaccines (3 - Td or Tdap) 06/03/2022 06/03/2012, 07/31/2010 Diabetes: Annual GFR (Glomerular Filtration Rate) 10/13/2022 10/13/2021 Hypertension/CHF/CAD Annual BMP Blood Test 10/13/2022 10/13/2021 Diabetes: Blood Sugar Control Test (HGBA1C) 08/11/2023 02/10/2023, 01/14/2021 COVID-19 Vaccine ( season) 2023 03/19/2021, 09/19/2020, 08/22/2020 Influenza Vaccine (#1) 2023 , 02/10/2023, 03/03/2022, Additional history exists Depression Screening 07/12/2024 07/13/2023 Medicare Annual Wellness Visit 07/12/2024 07/13/2023 Breast Cancer Screening 01/02/2026 01/03/20 24, 12/31/2022, 11/19/2021, Additional history exists Cholesterol Screening (Lipid Panel) 02/11/2028 02/10/2023 Colorectal Cancer Screening: Colonoscopy 06/04/2031 06/03/2021 Zoster Vaccines Completed 04/15/2021, 01/04, 10/03/2014 Pneumococcal Vaccine: 50+ Years Completed 03/03/2022, 01/23/2021, 01/18/2009, Additional history exists HIB Vaccines Aged Out No longer eligi ble based on patient's age to complete this topic HPV Vaccines Aged Out No longer eligi ble based on patient's age to complete this topic Hepatitis B Vaccines Aged Out No long er eligible based on patient's age to complete this topic IPV Vaccines Aged Out No longer eligi ble based on patient's age to complete this topic MMR Vaccines Aged Out No longer eligi ble based on patient's age to complete this topic Meningococcal ACWY Vaccine Aged Out N o longer eligible based on patient's age to complete this topic Meningococcal B Vacine Aged Out No lo nger eligible based on patient's age to complete this topic RSV Immunization Patients Under 20 months Aged Out No longer eligible based on patient's age to complete this topic Varicella Vaccines Aged Out No longer eligible based on patient's age to complete this topic Procedures Procedure Name Priority Date/Time Associated Diagnosis Comments XR CHEST 2 VIEWS Routine 04/20/2024 10:5 9 AM EST Costochondritis TRANSTHORACIC ECHOCARDIOGRAM (TTE) COMPLETE Routine 03/20/2024 8:41 AM EST Lightheadedness Shortness of breath NM LEXISCAN STRESS TEST W/ MYOCARDIAL PERFUSION Routine 03/14/2024 10:51 AM EST Chest pain, unspecified type TYRONE SCREENING DIGITAL Routine 01/03/2024 11:41 AM EDT HM DEPRESSION SCREENING Routine 07/13/2023 HEMOGLOBIN A1C Routine 02/10/2023 LIPID PANEL Routine 02/10/2023 ANNUAL BMP BLOOD TEST Routine 10/13/2021 COLONOSCOPY Routine 06/03/2021 URINE ALBUMIN CREATININE RATIO Routine 04/29/2020 from Last 3 Months or Most Recently Relevant to Health Maintenance Results * XR Chest 2 Views (04/20/2024 10:59 AM EST) Anatomical Region Laterality Modality Body Radiographic Ashanti ging 04/20/2024 11:0 5 AM EST Impressions 04/20/2024 11:09 AM EST No acute pulmonary disease. No change since 12/18/2019. Code 99364 -------- FINAL REPORT -------- Dictated By: Markos Terry Dictated Date: 04/20/2024 11:05 ET Assigned Physician: Markos Terry Reviewed and Electronically Signed By: Markos Terry Signed Date: 04/20/2024 11:09 ET Workstation ID: [id number] Transcribed By: Self Edit Transcribed Date: 04/20/2024 11:05 ET Narrative 04/20/2024 11:09 AM EST HISTORY: The patient is a 68-year-old female with chest pain. FINDINGS: PA and lateral radiographs of the chest again demonstrate anterior fixation hardware in the mid and lower cervical spine as also seen on the prior study performed 12/18/2019. The cardiac and mediastinal contours are within normal limits. The lungs and costophrenic angles are clear. Surgical clips are again seen in the upper abdomen near the midline. Procedure Note Markos Terry MD - 04/20/2024 HISTORY: The patient is a 68-year-old female with chest pain. FINDINGS: PA and lateral radiographs of the chest again demonstrateanterior fixation hardware in the mid and lower cervical spine as alsoseen on the prior study performed 12/18/2019. The cardiac and mediastinalcontours are within normal limits. The lungs and costophrenic angles areclear. Surgical clips are again seen in the upper abdomen near the midline. IMPRESSION: No acute pulmonary disease. No change since 12/18/2019. Code 76776 -------- FINAL REPORT -------- Dictated By: Markos Terry Dictated Date: 04/20/2024 11:05 ET Assigned Physician: Markos Terry Reviewed and Electronically Signed By: Markos Terry Signed Date: 04/20/2024 11:09 ET Workstation ID: [id number] Transcribed By: Self Edit Transcribed Date: 04/20/2024 11:05 ET us Tyrell Li NP IMG XR PROCEDURES Final Result * (ABNORMAL) TRANSTHORACIC ECHOCARDIOGRAM (TTE) COMPLETE (03/20/2024 8:41 AM EST) Left Atrium Minor [place] 3.9 cm CV PACS Left Atrium Major [place] 4.6 cm CV PACS LA Area Sys (A2C) 12 cm2 CV PACS LA Area Sys (A4C) 12 cm2 CV PACS LA Volume (BP) 29 mL CV PACS RA Area 9.0 cm2 CV PACS RA 2D Volume 19 mL CV PACS AV Mean Gradient 3 mmHg CV PACS Ao VTI 25.8 cm CV PACS AV Peak Ramon 1.3 m/s CV PACS AV Peak Gradient 7 mmHg CV PACS AV Area Continuity Equation 1.8 cm2 CV PACS AV Area Peak Velocity 1.9 cm2 CV PACS Aortic Sinus Valsalva 3.1 cm CV PACS Ascending Aorta 2.7 cm CV PACS IVC Proximal 1.2 cm CV PACS IVSD 1.2(A) 0.6 - 0.9 cm CV PACS LVIDD 4.7 3.8 - 5.2 cm CV PACS LVIDS 3.3 2.2 - 3.5 cm CV PACS LVOT Diameter 2.0 cm CV PACS LVOT Mean Ramon 0.5 m/s CV PACS LVOT Mean Grad 1 mmHg CV PACS LVOT Peak VTI 14.5 cm CV PACS LVOT Peak Ramon 0.8 m/s CV PACS LVOT Peak Gradient 2 mmHg CV PACS LVPWD 1.2(A) 0.6 - 0.9 cm CV PACS MV E' Tissue Velocity Lateral 8 cm/s CV PACS MV E' Tissue Velocity Septal 7 cm/s CV PACS LVOT Area 3.1 cm2 CV PACS LVOT Stroke Volume 46 mL CV PACS MV Deceleration Piatt 3.4 m/s2 CV PACS E Wave Deceleration Time 227 119 - 242 ms CV PACS MV PHT 66 ms CV PACS MV Peak A Ramon 0.95 m/s CV PACS MV Peak E Ramon 0.77 m/s CV PACS MV Area PHT 3.3 cm2 CV PACS PV Acceleration Time 98 ms CV PACS PV Peak Velocity 0.7 m/s CV PACS PV Peak Gradient 2 mmHg CV PACS RV Diastolic Basal Dimension 2.7 2.5 - 4.1 cm CV PACS TAPSE 20 mm CV PACS E/E' Ratio Septal 11 CV PACS E/E' Ratio Averaged 10 CV PACS LVOT Stroke Index 24 mL/m2 CV PACS Relative Wall Thickness ratio 0.51 CV PACS LVOT:AV VTI Index 0.56 CV PACS FS 30 % CV PACS LV Mass 2D 212 g CV PACS Ascending Aorta Index 1.41 cm/m2 CV PACS LVOT flow 157 mL/s CV PACS RA 2D Volume Index 10 mL/m2 CV PACS VELMA Index (VTI) 0.92 cm2/m2 CV PACS VELMA Index (Pk Ramon) 0.99 cm2/m2 CV PACS LVIDD Index 2.45 cm/m2 CV PACS LVIDS Index 1.72 cm/m2 CV PACS AV Velocity Ratio 0.62 CV PACS E/A Ratio 0.8 CV PACS E/E' Ratio Lateral 10 CV PACS LA Volume Index (BP) 15 mL/m2 CV PACS LV Mass Index 2D 110 g/m2 CV PACS BSA 1.98 m2 CV PACS Est. RA Pressure 3 mmHg CV PACS Anatomical Region Laterality Modality Ultrasound Narrative 03/21/2024 6:11 PM EST ?Left ventricle cavity size is normal. Left ventricular systolic function is in the normal range with an ejection fraction of 55-60%. ?No regional LV wall motion abnormalities noted. ?Left ventricle mild hypertrophy. ?Right ventricle cavity is normal. Right ventricular systolic function is normal. ?Aortic valve leaflets are mildly thickened. Left Ventricle Left ventricle cavity size is normal. There is mild hypertrophy. Systolic function is normal with an ejection fraction of 55-60%. There are no regional LV wall motion abnormalities. Right Ventricle Right ventricle cavity appears normal. Systolic function is normal. Left Atrium Left atrium cavity size is normal. Right Atrium Right atrium cavity is normal. Mitral Valve The leaflets are mildly thickened. There is mild annular calcification. There is trace regurgitation. There is no evidence of mitral valve stenosis. Tricuspid Valve Tricuspid valve structure is normal. There is trace regurgitation. There is no evidence of tricuspid valve stenosis. Aortic Valve The aortic valve is trileaflet. The leaflets are mildly thickened. There is no regurgitation or stenosis. Pulmonic Valve The pulmonic valve was not well visualized. No significant pulmonic valve regurgitation. There is no evidence of pulmonic valve stenosis. Ascending Aorta The aorta appears normal in size. Pericardium Pericardium appears normal. Study Details Overall the study quality was technically difficult. us Gilda Sebastian MD CV ECHO PROCEDURES Final Resul t * NM LEXISCAN STRESS TEST W/ MYOCARDIAL PERFUSION (03/14/2024 10:51 AM EST) Baseline HR 84 bpm CV PACS STRESS Peak HR 100 bpm CV PACS STRESS Estimated workload 1.0 METS CV PACS STRESS Max HR Percent 66 % CV PA CS STRESS Baseline SBP 119 mmHg CV PACS STRESS Baseline DBP 68 mmHg CV PACS STRESS O2 sat rest 97 % CV PACS STRESS Peak SBP 117 mmHg CV PACS STRESS Peak DBP 59 mmHg CV PACS STRESS Exercise/injec tion duration (min) 0 CV PACS STRESS Exercise/injec tion duration (sec) 51 CV PACS STRESS Percent HR 67 % CV PACS STRESS Rate Pressure Product 11,700.0 mmHg*bpm CV PACS STRESS Target HR 128 bpm CV PACS STRESS TID 1.25 CV PACS STRESS Nuc Stress EF 62 % CV PAC S STRESS Nuc Rest EF 69 % CV PACS STRESS BSA 1.96 m2 CV PACS STRESS Anatomical Region Laterality Modality Nuclear Medicine 03/14/2024 9:45 AM EST 03/14/2024 10:23 AM EST Narrative 03/14/2024 4:49 PM EST ?This is probably a normal regadenoson nuclear perfusion stress test. ?LV perfusion is probably normal with no definitive ischemia or infarct. ?Left ventricular systolic function is normal with stress ejection fraction 62%. TID is normal at 1.25. Stress Findings A pharmacological stress test was performed using regadenoson, 0.4 mg IV over 10-15 seconds, followed by radiopharmacological injection 10 seconds post infusion. Total stress time was 0 min and 51 sec. The patient reached the end of the protocol. Blood pressure demonstrated a normal response. The patient reported no symptoms during the stress test. ECG The ECG shows normal sinus rhythm. 68-year-old female with atypical chest discomfort and shortness of breath. History of diabetes lightest, hyperlipidemia, hypertension, smoking. Baseline ECG indicates NSR with sinus arrhythmia and right bundle branch block. There were no arrhythmias during stress. There is no significant ST abnormalities during stress. There were no arrhythmias during recovery. The result of the stress ECG was negative for ischemia. Nuclear Study Quality Study technique: MPI, SPECT, multi, rest and stress, 1 day. Overall image quality is fair. CT attenuation correction was utilized. Increased bowel uptake artifact is present. No radiopharmaceutical dose was extravasated. Stress Function Comments Stress ejection fraction is 62%. The stress end diastolic cavity size is normal. Rest Function Comments Left ventricular function at rest was normal. Resting ejection fraction was 69%. CT Findings Minimal coronary artery calcification noted. Nuclear Prior Study There is no prior study available for comparison. Perfusion Comments LV perfusion is probably normal with no definitive reversible or fixed perfusion defect. us Ephraim Parker MD CV STRESS PROCEDURES Final Res ult * TYRONE SCREENING DIGITAL (01/03/2024 11:41 AM EDT) Anatomical Region Laterality Modality Mammography 01/03/2024 8:11 AM EDT Narrative 01/03/2024 11:41 AM EDT [facility] Diagnostic Imaging Department [address] [place] [id number] Patient: ??LUIS DANIEL TREJOPORTILLO JOSÉ ?/Age/Sex: 1955 - 68 - F Unit#: ??[id number] ? Location/Status: ??SPDIMAM/REG CLI ? Mnemonic/Ordering Site: ??DIGSC/SPMAM Ordering Physician: ??GILDA SEBASTIAN MD [place] Screening Digital - 01/03/24 - 838 Report Status:Signed EXAM: [facility] Screening Digital EXAM DATE AND TIME: 01/03/2024 8:45 AM HISTORY: ??Screening. Excisional biopsy of the right breast in 1998, pathology benign. COMPARISON: ??12/31/22, 11/19/21, 06/07/20, and earlier studies dating back to 2012. TECHNIQUE: Bilateral digital breast tomosynthesis was performed in the CC and MLO projections. Computer aided detection with [employer] 3D 3.1 was employed. TISSUE DENSITY: b. There are scattered areas of fibroglandular density. FINDINGS: A small asymmetry is again seen in the middle 1:00 position of the right breast, unchanged dating back to at least 2012, considered benign, possibly surgical scar. No suspicious masses, grouped microcalcifications, or developing architectural distortion are seen. Few benign calcifications are again noted. The skin and vascularity are unremarkable. IMPRESSION: Stable mammographic appearance of the breasts. ??No evidence of malignancy is seen. A negative mammogram in the presence of a clinically suspicious palpable abnormality does not preclude the possibility of malignancy or alter the indications for biopsy. BI-RADS: ??Category 2: Benign RECOMMENDATION(S): 1: Routine screening mammogram BILATERAL in 1 year. [facility] [address] [place] [address] Dictating Physician: ??ASHLEY MALONE MD Electronically Signed by: ??ASHLEY MALONE MD Dic Date/Time: ??01/03/24 1139 Sign date/Time: ??01/03/24 1141 Procedure Note Ashley Malone MD - 01/19/2024 [facility] Diagnostic Imaging Department [address] [place] [address] Patient: LUIS DANIEL DUMONTPORTILLO./Age/Sex: 1955 - 68 - F Unit#: [id number] [facility]/Ordering Site: [facility] Ordering Physician: GILDA SEBASTIAN MD [facility] Screening Digital - 01/03/24 - 838 Report Status:Signed EXAM: [facility] Screening Digital EXAM DATE AND TIME: 01/03/2024 8:45 AM HISTORY: Screening. Excisional biopsy of the right breast in 1998,pathology benign. COMPARISON: 12/31/22, 11/19/21, 06/07/20, and earlier studies dating back [id number]. TECHNIQUE: Bilateral digital breast tomosynthesis was performed in the CCand MLO projections. Computer aided detection with [employer] 3D 3.1was employed. TISSUE DENSITY: b. There are scattered areas of fibroglandular density. FINDINGS: A small asymmetry is again seen in the middle 1:00 position of the right breast, unchanged dating back to at least 2012, considered benign,possibly surgical scar. No suspicious masses, grouped microcalcifications, or developingarchitectural distortion are seen. Few benign calcifications are again noted. The skinand vascularity are unremarkable. IMPRESSION: Stable mammographic appearance of the breasts. No evidence of malignancyis seen. A negative mammogram in the presence of a clinically suspicious palpable abnormality does not preclude the possibility of malignancy or alter the indications for biopsy. BI-RADS: Category 2: Benign RECOMMENDATION(S): 1: Routine screening mammogram BILATERAL in 1 year. Mammogram performed at [facility] [place] [address] Dictating Physician: ASHLEY MALONE MD Electronically Signed by: ASHLEY MALONE MD Dic Date/Time: 01/03/24 1139 Sign date/Time: 01/03/24 1141 Result [facility] Gilda Sebastian MD IMG BI PROCEDURES Final Result * Depression Screening (07/13/2023) [facility] Depression Screening Abstracted Result [facility] Historical Provider HEALTH MAINTENANCE Final Result * (ABNORMAL) Hemoglobin A1c (02/10/2023) [facility] Hemoglobin A1C 7.5(A) <=6.5 % Blood Venous blood specimen / Unknown Historical Provider LAB BLOOD ORDERABLES Gertrudis l Result * (ABNORMAL) Lipid panel (02/10/2023) [facility] LDL/HDL Ratio 3 0 - 4 Triglycerides 153(A) 0 - 150 mg/dL Cholesterol 148 0 - 200 mg/dL HDL 52 >=40 mg/dL LDL Cholesterol 66 0 - 100 mg/dL Blood Venous blood specimen / Unknown Historical Provider LAB BLOOD ORDERABLES Gertrudis l Result * Annual BMP Blood Test (10/13/2021) [facility] Annual BMP Blood Test Abstracted Historical Provider HEALTH MAINTENANCE Final Result * Colonoscopy (06/03/2021) [facility] Colonoscopy No interpretation , abstracted Anatomical Region Laterality Modality Other Historical Provider HEALTH MAINTENANCE Final Result * Urine Albumin Creatinine Ratio (04/29/2020) [facility] Urine Albumin Creatinine Ratio Abstracted Historical Provider HEALTH MAINTENANCE Final Result from Last 3 Months or Most Recently Relevant to Health Maintenance Insurance [employer] MEDICARE ADVANTAGE MEDICAID - [place] Advance Directives Documents on File Type Date Recorded Patient Precision Inspector Expl anation Health Care Decision (hx) 05/26/2019 AD DAVIS DIRECTIVE Health Care Decision (hx) 05/26/2019 AD DAVIS DIRECTIVE Health Care Decision (hx) 05/26/2019 AD DAVIS DIRECTIVE Health Care Decision (hx) 05/26/2019 AD DAVIS DIRECTIVE Health Care Decision (hx) 05/26/2019 AD DAVIS DIRECTIVE Health Care Decision (hx) 05/26/2019 AD DAVIS DIRECTIVE Health Care Decision (hx) 05/26/2019 AD DAVIS DIRECTIVE Health Care Decision (hx) 05/26/2019 AD DAVIS DIRECTIVE Health Care Decision (hx) 05/26/2019 AD DAVIS DIRECTIVE Health Care Decision (hx) 05/26/2019 AD DAVIS DIRECTIVE Health Care Decision (hx) 05/26/2019 AD DAVIS DIRECTIVE Health Care Decision (hx) 05/26/2019 AD DAVIS DIRECTIVE Health Care Decision (hx) 05/26/2019 AD DAVIS DIRECTIVE Health Care Decision (hx) 05/26/2019 AD DAVIS DIRECTIVE Health Care Decision (hx) 05/26/2019 AD DAVIS DIRECTIVE Health Care Decision (hx) 05/26/2019 AD DAVIS DIRECTIVE Health Care Decision (hx) 05/26/2019 AD DAVIS DIRECTIVE Health Care Decision (hx) 05/26/2019 AD DAVIS DIRECTIVE Health Care Decision (hx) 05/26/2019 AD DAVIS DIRECTIVE Health Care Decision (hx) 05/26/2019 AD DAVIS DIRECTIVE Health Care Decision (hx) 05/26/2019 AD DAVIS DIRECTIVE Health Care Decision (hx) 05/26/2019 AD DAVIS DIRECTIVE Health Care Decision (hx) 05/26/2019 AD DAVIS DIRECTIVE Health Care Decision (hx) 05/26/2019 AD DAVIS DIRECTIVE Health Care Decision (hx) 05/26/2019 AD DAVIS DIRECTIVE Health Care Decision (hx) 05/26/2019 AD DAVIS DIRECTIVE Health Care Decision (hx) 05/26/2019 AD DAVIS DIRECTIVE Health Care Decision (hx) 05/26/2019 AD DAVIS DIRECTIVE Health Care Decision (hx) 05/26/2019 AD DAVIS DIRECTIVE Health Care Decision (hx) 05/26/2019 AD DAVIS DIRECTIVE Health Care Decision (hx) 05/26/2019 AD DAVIS DIRECTIVE Health Care Decision (hx) 05/26/2019 AD DAVIS DIRECTIVE Health Care Decision (hx) 05/26/2019 AD DAVIS DIRECTIVE Health Care Decision (hx) 05/26/2019 AD DAVIS DIRECTIVE Care Teams Supervisor Frame Assembly Relationship Specialty Start Date End Date Gilda Sebastian MD [address] [place] [phone] PCP - General Internal Medicine 03/14/24
== END 2024-06-01 10:09 | disposition home or self-care (01) ==
PROVIDERS: PCP Internal Medicine; Visit Provider Hospitalist
DX: J44.9 Chronic obstructive pulmonary disease, unspecified (principal); R91.8 Other nonspecific abnormal finding of lung field; G47.33 Obstructive sleep apnea (adult) (pediatric); F17.200 Nicotine dependence, unspecified, uncomplicated; J01.90 Acute sinusitis, unspecified
CPT/HCPCS: 99214

== ENCOUNTER → 2024-06-01 09:18 | Outpatient (BNVA) | payer MEDICARE, OTHER, MEDICAID, SELFPAY | PROVIDERS: PCP Internal Medicine; Visit Provider Hospitalist | DX: J44.9 Chronic obstructive pulmonary disease, unspecified (principal); J01.90 Acute sinusitis, unspecified; R91.8 Other nonspecific abnormal finding of lung field; G47.33 Obstructive sleep apnea (adult) (pediatric); F17.210 Nicotine dependence, cigarettes, uncomplicated | CPT/HCPCS: 99212 ==

== ENCOUNTER 2024-11-13 08:11 | Outpatient (AMB) | payer MEDICARE, OTHER, MEDICAID, SELFPAY ==
[2024-11-13 08:20] VITALS: BP 110/56; PULSE 87; O2SAT 99; BMI 32.4
--- NOTE | 2024-11-13 08:20 | A.OFFVIS_ITS ---
Vital Signs 11/13/24 08:20 Height 5 ft 4 in Weight 188 lb 7.924 oz BMI 32.4 BP 110/56 L Blood Pressure Location Lt brachial Position Sitting Pulse 87 Pulse Source Pulse Oximeter Pulse Oximetry (%) 99 Oxygen Delivery Method Room Air Intake Visit Reasons: cough Allergies acetaminophen (Tylenol) Allergy (Severe, Verified 11/13/24 08:24) Rash and Hives oxycodone (Percocet) Allergy (Severe, Verified 11/13/24 08:24) Rash and Hives penicillin V Allergy (Severe, Verified 11/13/24 08:24) Rash and Hives Sulfa (Sulfonamide Antibiotics) Allergy (Severe, Verified 11/13/24 08:24) Rash and Hives trazodone Allergy (Severe, Verified 11/13/24 08:24) Rash and Hives Erythromycin Allergy (Severe, Uncoded 06/01/24 09:47) Rash and Hives latex Allergy (Severe, Uncoded 06/01/24 09:47) Rash and Hives Proventil Allergy (Severe, Uncoded 06/01/24 09:47) Rash and Hives HPI Comments Details: The patient is a 69 year-old woman with known COPD and tobacco dependency. She continues to smoke and actually she has been smoking more. She is very depressed. She feels like it inhalers are not working for her. Although she notes that the smoking is only making it worse. The patient is also reluctant to use any oxygen. She has been complaining of a productive cough and multiple exacerbations her breathing she has chronic bronchitis with significant exacerbations in prednisone. The patient however has a bad reaction to prednisone. Therefore she will be a good candidate for Daliresp. We will start the Daliresp every other day and hopefully then she can take a daily when she gets used to it. She did move in with her son and kline she is there she can't smoke. Since she stop smoking her respiratory status has improved. She still has a cough off and on. More recently she did fall down the stairs and she fractured her wrist on her right side. She is currently has a cast down. She is not sure if she is going to need surgery. She is asking for a nicotine patch to help with withdrawals. She also was prescribed Daliresp as she has good candidate, but, she was not at the pharmacy. Therefore I recent a prescription and also gave her a paper prescription just in case.. 03/23/2022 the patient is here for a pulmonary follow-up visit. Overall she is getting better. She had tough viral bronchitis and likely bronchiolitis after her son's wedding. The last for several weeks. She did require multiple courses of prednisone and also antibiotics. Finally she is better although she still has a cough. The cough tends to be croupy in nature. Sometimes she has a coughing spell is hard to break. She does have intermittent mucus production. Unfortunately she continues to smoke cigarettes and she understands this will result in chronic bronchitis. She continues use the Trelegy with good effect. She is also using the Daliresp. That also has been helpful. She has been working on weight loss. She is participating in the lung cancer screening program. Her last CT scan was the fall. This was done at [facility]. She was told that everything was stable. Scheduled for another CT scan in a year's time. We will request a CT scan from [facility]. 06/23/2022 the patient is here for a pulmonary follow-up visit. She was recently hospitalized in psychiatry at [facility] after a question suicidal attempt. The patient was found unresponsive after taking sleeping pills. Now she is back home. The patient does complaint of daytime drowsiness. She has hard time sleeping. She did have sleep apnea before and she had been on CPAP. However she no longer has a CPAP available. The patient has not had a sleep study many years. She continues to be symptomatic with daytime drowsiness with an [place] score of 11/24. Therefore I will request a repeat sleep study hope to get her back on CPAP therapy and help her with her sleep-wake cycle. She continues use her medications. Unfortunately she also continues to smoke cigarettes. She responds well to Trelegy. This morning she woke up and she felt some chest tightness and wheezing. She has not use her Trelegy as of yet. She will take it when she goes home. She is also participating in the lung cancer screening program. Her last CT scan at [facility] demonstrating stable pulmonary nodules. 09/22/2022 the patient is here for a pulmonary follow-up visit. The patient is finally feeling better. She had pneumonia and required a long course of prednisone. The patient had a follow-up chest x-ray which I personally reviewed without any evidence of any airspace disease which is reassuring. The patient is back to her baseline. She continues on the Trelegy. She has been monitoring her weight and her diet. She is doing very well good losing weight. She does have daytime drowsiness. She has an elevated [place] score 11/24. We did review her home sleep study demonstrating an AHI of 22 suggestive of moderate to severe sleep apnea. The patient needs to go back on CPAP. The patient is agreeable at this time and I will send a script for CPAP to a local [employer] company. 03/05/2023 the patient is here for a pulmonary follow-up visit. The patient has been having difficulties with her sleep. Has significant daytime drowsiness. Her [place] score significantly elevated 11/24. Apparently she had been on CPAP before but her CPAP broke beyond repair. Therefore she has not been able to use it. We have requested a replacement machine during the last visit but the patient did not receive any replacement. I did reach out to the [employer] company and they will see what they can do. The patient needs to start her CPAP therapy specially with her increased cardiovascular risk factors. She continues use her Trelegy inhaler which she is been affecting beneficial. The patient has not required any prednisone. She does use her rescue inhaler on a daily basis however. She also has chest congestion. [id number] severity. Unfortunately the patient continues to smoke cigarettes. She is participating in the lung cancer screening program. 07/05/2023 the patient is here for a pulmonary follow-up visit. The patient is feeling better from a respiratory status. She was treated for pneumonia. She completed the prednisone also couple antibiotics. She still complains of sinus congestion and postnasal drip. Sometimes she does have some degree of congestion that pulls in the back of the throat difficult to clear out. She has not using any nasal therapy right now. For her lungs she continues on the Trelegy. She has not had to use her rescue therapy. Unfortunately she continues to smoke cigarettes. The patient is participating in the lung cancer screening program at [facility]. She would like to stay there. She has not had a CAT scan more than a year. I did give her the number and also re- referred her to the [facility] lung cancer screening program. She knows to send me a report. Otherwise the patient follow-up in 4-6 months. 11/05/2023 the patient is here for a pulmonary follow-up visit. She does complaint of increasing sinus pressure. She does have increasing nasal drainage and congestion. Does complaint of a cough due to a postnasal drip. Moderate severity. Denies any fevers or chills. She continues use her respiratory therapy with good effect. She is also using the CPAP at nighttime with good effect. Unfortunately she still continues to smoke cigarettes. The patient is participating in the lung cancer screening program. This is a [facility]. She is not due to the spring. will go ahead and treat her for the sinusitis at this time. If she has persistent symptoms she will call for further recommendations. 01/05/2024 the patient is here for a pulmonary follow-up visit. The patient overall has been feeling sickly. She had been sick now for about a week. She started developing sore throat then she developed laryngitis. Then after that she started developing a croupy cough. It has been going on for about a week. It is bothering her sleep. Moderate severity. She has been using all inhalers with only minimal relief. She has used [id number]-[id number] cough medications. The patient feels that she has been cough. Will go ahead and treat with azithromycin. She does have wheezing on exam with a very significant cough. Therefore, she also gets some prednisone. The patient also can use Tessalon Perles as needed. Her last imaging study was back in 07/24/2023 where she had a lung cancer screening CT scan at [facility]. We did review it was a rads 2. Therefore will hold off on any imaging right now. She will continue with current respiratory therapy and she needs to continue with smoking cessation. She will follow-up in 2-3 months. However, she is no better she will call for an earlier assessment. 06/01/2024 the patient is here for a pulmonary follow-up visit. Overall she is doing okay. She does complain of a postnasal drip. Moderate severity. Making her cough more. She is getting aggravated by periods not allow her to sleep comfortably. She has not been able to use her CPAP because of the postnasal drip in the cough. As far as respiratory symptoms she is doing okay otherwise. She is using her respiratory inhalers as prescribed. Unfortunately though she continues smoke cigarettes. She is not ready to quit. She is participating in the lung cancer screening program at [facility]. Apparently she did have a recent CT scan. Will requested it. For now will continue the current respiratory therapy and will start her on nasal sprays to minimize the upper airway cough syndrome. 11/13/2024 the patient is here for a pulmonary follow-up visit. She overall has been doing about the same. She unfortunately she continues to smoke cigarettes. She started having a cough. The cough has been worsening. This congested with phlegm. Moderate severity. Sometimes she sees some blood-tinged sputum. She i s taking part of the lung cancer screening program at [facility]. Her last CT scan she had been back in the spring. Will request a copy. If she has not had 1 then will have to have 1 done for her. The patient is high risk for cancer. She has Trelegy for inhalers. She does not use it as prescribed. She also has a PAP machine for obstructive sleep apnea but she has not been using it regularly. She does have a nebulizer and rescue medicine that she can use as needed. Right now she does not have any wheezing and does not required any additional prednisone. Will start her on azithromycin 3 times a week to treat her for chronic bronchitis. Will follow-up with her previous imaging studies. Will follow-up in 2 months if she has any issues prior to this she will call for further recommendations. [facility] Medical History (Updated 11/13/24 @ 21:21 by Felipe Lopez MD) Hemoptysis Sinusitis Screening for lung cancer SRIDEVI (obstructive sleep apnea) Bronchitis COPD exacerbation Tobacco dependence Chronic restrictive lung disease Asthma-COPD overlap syndrome Asthma Tobacco dependence Pulmonary nodules COPD (chronic obstructive pulmonary disease) Family History (Updated 04/02/20 @ 20:41 by Felipe Lopez MD) Other Asthma Social History Patient Tobacco Use Status: Current everyday Tobacco user Cigarettes Per Day: 3 Years Smoked: 30 years Review of Systems Const Reports difficulty sleeping, Denies fever(s), Denies night sweats and Reports snoring Eyes Denies change in vision ENT Denies change in voice, Denies lip swelling, Denies mouth pain, Reports nasal congestion (MILD), Reports nasal discharge (MILD), Denies neck pain, Reports post nasal drip, Denies sinus pain and Denies tongue swelling Card Denies chest pain, Denies irregular heart rhythm, Denies leg edema and Denies dyspnea Resp Reports chest congestion, Reports cough, Reports hemoptysis, Denies dyspnea, Reports snoring and Reports wheezing GI Denies abdominal pain Musc Denies no additional complaints and Denies neck pain Neuro Denies Neuro-related abnormal movements Psych Reports as per HPI Alvaro/Lymph Denies easy bleeding and Denies lymphadenopathy Aller/Immun Denies lip swelling, Denies tongue swelling and Reports wheezing Physical Exam Vital Signs: Last Vital Signs Pulse 87 11/13/24 08:20 BP 110/56 L 11/13/24 08:20 Pulse Ox 99 11/13/24 08:20 Oxygen Delivery Method Room Air 11/13/24 08:20 BMI result Body Mass Index 32.4 Const General: alert Orientation/consciousness: patient oriented x3 Neck Neck: Yes normal visual inspection, Yes full ROM and Yes no lymphadenopathy Chest Chest palpation & inspection: normal inspection of the chest Resp Effort & Inspection: normal respiratory effort and Actively coughing Auscultation: diminished lung sounds Cardio Rate: regular rate Rhythm: regular rhythm Heart sounds: S1 normal heart sound present and S2 normal heart sound present GI Palpation (GI): Soft to palpation and nontender Auscultation: normal bowel sounds Skin General skin exam: rashes and/or lesions noted Neuro General: patient oriented x3 Assessment & Plan Assessment & Plan (1) Asthma-COPD overlap syndrome: Code(s): J44.9 - Chronic obstructive pulmonary disease, unspecified Category: Medical (2) Pulmonary nodules: Code(s): R91.8 - Other nonspecific abnormal finding of lung field Category: Medical (3) SRIDEVI (obstructive sleep apnea): Code(s): G47.33 - Obstructive sleep apnea (adult) (pediatric) Category: Medical (4) Tobacco dependence: Code(s): F17.200 - Nicotine dependence, unspecified, uncomplicated Category: Medical (5) Hemoptysis: Code(s): R04.2 - Hemoptysis Category: Medical Plan Tobacco cessation Azithromycin MWF continue Trelegy continue xopenex nebs BID continue Daliresp benzonates as needed for cough not using APA due to post nasal drip, [id number] full face mask start LDCT Fluticasone nasal spray F/U 2-3 months Medications: New azithromycin Take 1 tablet on Wednesday/Wednesday/Wednesday 250 mg PO 3XW 12 tabs 1RF 28 days K21.9 - Gastro-esophageal reflux disease without esophagitis Coding Level of Care Code Est Pt Level 4 (52182) Complex EM visit Add On G2211 Diagnoses Asthma-COPD overlap syndrome J44.9 Pulmonary nodules R91.8 SRIDEVI (obstructive sleep apnea) G47.33 Tobacco dependence F17.200 Hemoptysis R04.2 Time Spent (min) 17
--- OUTSIDE RECORDS SUMMARY | 2024-11-13 08:24 | XMS_ITS ---
[facility] Care Team Organization Name Specialty Phone Email Start Date End Da [facility] Primary [facility] 02/10/2022 11/22/19 24
--- OUTSIDE RECORDS SUMMARY | 2024-11-13 08:24 | XMS_ITS | Clinical Summary ---
Author Organization [facility] Address [address] [place] [address] Phone Care Team Providers Care Fourdrinier Wire Weaver Name Role Phone Sarah Sebastian MD Primary Care Provider [phone] Allergies Active Allergy Reactions Criticality Noted Date [...] Chronic obstructive pulmonary disease 11/22/2020 11/25/2020 Immunizations Immunization Administration Dates Next Due Influenza TIV (IM) [...] Care Team (Late st Contact Info) Description 12/26/2024 8:40 AM EDT Office Visit [facility] [address] [address] Brice Don MD [address] [address] Health Maintenance Due Date Last Done Comments Breast Cancer Screening 1955 Colorectal Cancer Screening: Annual FOBT 2002 Colorectal Cancer Screening: Colonoscopy 2002 Colorectal Cancer Screening: Sigmoidoscopy 2002 Pneumococcal Vaccine: 50+ Years (2 of 2 - PCV) 01/18/2010 01/18/2009 Diabetes: Ophthalmology Exam 11/22/2020 Diabetes: Pedal Pulse Checked 11/22/2020 Diabetes: Sensory Foot Exam 11/22/2020 Diabetes: Visual Foot Exam 11/22/2020 Diabetes: Hemoglobin A1C 05/13/2023 023, 01/14/2021 Influenza Vaccine (#1) 2024 3, 03/30/2018, 01/15/2017 Hepatitis B Vaccine Aged [...] EDT) Glycated Hemoglobin 7.3(H) <6.5 % [facility] Estimated Average Glucose 163 mg/dL [facility] Performing Lab Performing Lab(H) [facility] Comment: [employer], a member of [address] [address] [employer] - Tash Su MD Blood specimen (specimen) Venous blood / Unknown 01/14/2021 1:36 PM EDT 01/14/2021 1:36 PM EDT us Brice Don MD LAB BLOOD ORDERABLES Final Re sult [facility] ([facility]) from Last 3 Months or Most Recently Relevant to Health Maintenance Insurance [facility] Regions 1,2,3 (VACCN) [employer] Medicare [facility] Reg[employer] 1,2,3 (VACCN) [employer] Medicare Care Teams Fourdrinier Wire Weaver Relationship Specialty Start Date End Date Sarah Sebastian MD 175 [facility] 200 [place] [address] PCP - General Internal Medicine 06/08/22
--- OUTSIDE RECORDS SUMMARY | 2024-11-13 08:24 | XMS_ITS | Encounter Summary ---
Author Organization [facility] Address [address] [place] [phone] Care Team Providers Care Stem Shaper Name Role Phone Sarah Sebastian MD Primary Care Provider [phone] Encounter Details Date Type Department Care Team (Late Contact Info) Description 11/10/2024 Telephone Internal Medicine - [place] 175 [facility] [address] [place] [phone] Sarah Sebastian MD 175 [facility] [address] [place] [phone] Social History Tobacco Use Types Packs/Day Years [...] as of this encounter Progress Notes * Shalini Joseph - 11/10/2024 10:46 AM EDT Tash Valero [place] new provider or submitter number is [id number] documented in this encounter Plan of Treatment Upcoming Encounters Date Type Department Care Team (Late Contact Info) Description 11/30/2024 10:10 AM EDT Office Visit Gastroenterology - [place] [address] [facility] 200 [place] [phone] Yashira Sullivan PA [address] [place] [place] [address] 12/20/2024 8:30 AM EDT Office Visit [facility] [place] [address] [facility] [address] [place] [phone] Jessica Villalobos PA [address] [facility] [address] [place], [place] [phone] 01/17/2025 9:00 AM EDT Procedure visit [facility] [place] 175 [facility] [address] [place] [phone] Emilee Shen MD [address] [phone] 04/03/2025 9:00 AM EST Office Visit Endocrinology - [address] [phone] Bryanna Boateng MD [address] [place] [address] documented as of this encounter Visit Diagnoses Not on filedocumented in this encounter Care Teams Stem Shaper Relationship Specialty Start Date End Date Sarah Sebastian MD 175 [facility] 200 [place] [phone] PCP - General Internal Medicine 03/14/24 documented as of this encounter
== END 2024-11-13 08:41 | disposition home or self-care (01) ==
LOC: HO.HPS 08:11
PROVIDERS: PCP Internal Medicine; Visit Provider Hospitalist
DX: J44.9 Chronic obstructive pulmonary disease, unspecified (principal); R91.8 Other nonspecific abnormal finding of lung field; G47.33 Obstructive sleep apnea (adult) (pediatric); F17.200 Nicotine dependence, unspecified, uncomplicated; R04.2 Hemoptysis
CPT/HCPCS: 99214; G2211

== ENCOUNTER → 2024-11-13 08:11 | Outpatient (BNVA) | payer MEDICARE, OTHER, MEDICAID, SELFPAY | PROVIDERS: PCP Internal Medicine; Visit Provider Hospitalist | DX: G47.33 Obstructive sleep apnea (adult) (pediatric) (principal); J44.9 Chronic obstructive pulmonary disease, unspecified; R91.8 Other nonspecific abnormal finding of lung field; R04.2 Hemoptysis; F17.200 Nicotine dependence, unspecified, uncomplicated; K21.9 Gastro-esophageal reflux disease without esophagitis | CPT/HCPCS: 99212 ==

== ENCOUNTER 2025-01-25 10:47 | Outpatient (AMB) | payer MEDICARE, OTHER, MEDICAID, SELFPAY ==
[2025-01-25 10:55] VITALS: BP 110/52; PULSE 71; O2SAT 100; BMI 32.0
--- NOTE | 2025-01-25 10:55 | A.OFFVIS_ITS ---
Vital Signs 01/25/25 10:55 Height 5 ft 4 in Weight 186 lb 4.65 oz BMI 32.0 BP 110/52 L Blood Pressure Location Lt brachial Position Sitting Pulse 71 Pulse Source Pulse Oximeter Pulse Oximetry (%) 100 Oxygen Delivery Method Room Air Intake Visit Reasons: Asthma Telecommunications Field Technician Required: No Allergies acetaminophen (Tylenol) Allergy (Severe, Verified 01/25/25 10:58) Rash and Hives oxycodone (Percocet) Allergy (Severe, Verified 01/25/25 10:58) Rash and Hives penicillin V Allergy (Severe, Verified 01/25/25 10:58) Rash and Hives Sulfa (Sulfonamide Antibiotics) Allergy (Severe, Verified 01/25/25 10:58) Rash and Hives trazodone Allergy (Severe, Verified 01/25/25 10:58) Rash and Hives Erythromycin Allergy (Severe, Uncoded 06/01/24 09:47) Rash and Hives latex Allergy (Severe, Uncoded 06/01/24 09:47) Rash and Hives Proventil Allergy (Severe, Uncoded 06/01/24 09:47) Rash and Hives HPI Comments Details: The patient is a 69 year-old woman with known COPD and tobacco dependency. She continues to smoke and actually she has been smoking more. She is very depressed. She feels like it inhalers are not working for her. Although she notes that the smoking is only making it worse. The patient is also reluctant to use any oxygen. She has been complaining of a productive cough and multiple exacerbations her breathing she has chronic bronchitis with significant exacerbations in prednisone. The patient however has a bad reaction to prednisone. Therefore she will be a good candidate for Daliresp. We will start the Daliresp every other day and hopefully then she can take a daily when she gets used to it. She did move in with her son and kline she is there she can't smoke. Since she stop smoking her respiratory status has improved. She still has a cough off and on. More recently she did fall down the stairs and she fractured her wrist on her right side. She is currently has a cast down. She is not sure if she is going to need surgery. She is asking for a nicotine patch to help with withdrawals. She also was prescribed Daliresp as she has good candidate, but, she was not at the pharmacy. Therefore I recent a prescription and also gave her a paper prescription just in case.. 03/23/2022 the patient is here for a pulmonary follow-up visit. Overall she is getting better. She had tough viral bronchitis and likely bronchiolitis after her son's wedding. The last for several weeks. She did require multiple courses of prednisone and also antibiotics. Finally she is better although she still has a cough. The cough tends to be croupy in nature. Sometimes she has a coughing spell is hard to break. She does have intermittent mucus production. Unfortunately she continues to smoke cigarettes and she understands this will result in chronic bronchitis. She continues use the Trelegy with good effect. She is also using the Daliresp. That also has been helpful. She has been working on weight loss. She is participating in the lung cancer screening program. Her last CT scan was the fall. This was done at [facility]. She was told that everything was stable. Scheduled for another CT scan in a year's time. We will request a CT scan from [facility]. 06/23/2022 the patient is here for a pulmonary follow-up visit. She was recently hospitalized in psychiatry at [facility] after a question suicidal attempt. The patient was found unresponsive after taking sleeping pills. Now she is back home. The patient does complaint of daytime drowsiness. She has hard time sleeping. She did have sleep apnea before and she had been on CPAP. However she no longer has a CPAP available. The patient has not had a sleep study many years. She continues to be symptomatic with daytime drowsiness with an Jenner score of 11/24. Therefore I will request a repeat sleep study hope to get her back on CPAP therapy and help her with her sleep-wake cycle. She continues use her medications. Unfortunately she also continues to smoke cigarettes. She responds well to Trelegy. This morning she woke up and she felt some chest tightness and wheezing. She has not use her Trelegy as of yet. She will take it when she goes home. She is also participating in the lung cancer screening program. Her last CT scan at [facility] demonstrating stable pulmonary nodules. 09/22/2022 the patient is here for a pulmonary follow-up visit. The patient is finally feeling better. She had pneumonia and required a long course of prednisone. The patient had a follow-up chest x-ray which I personally reviewed without any evidence of any airspace disease which is reassuring. The patient is back to her baseline. She continues on the Trelegy. She has been monitoring her weight and her diet. She is doing very well good losing weight. She does have daytime drowsiness. She has an elevated Jenner score 11/24. We did review her home sleep study demonstrating an AHI of 22 suggestive of moderate to severe sleep apnea. The patient needs to go back on CPAP. The patient is agreeable at this time and I will send a script for CPAP to a local [employer] company. 03/05/2023 the patient is here for a pulmonary follow-up visit. The patient has been having difficulties with her sleep. Has significant daytime drowsiness. Her Jenner score significantly elevated 11/24. Apparently she had been on CPAP before but her CPAP broke beyond repair. Therefore she has not been able to use it. We have requested a replacement machine during the last visit but the patie nt did not receive any replacement. I did reach out to the [employer] company and they will see what they can do. The patient needs to start her CPAP therapy specially with her increased cardiovascular risk factors. She continues use her Trelegy inhaler which she is been affecting beneficial. The patient has not required any prednisone. She does use her rescue inhaler on a daily basis however. She also has chest congestion. [id number]-he-odvajlub severity. Unfortunately the patient continues to smoke cigarettes. She is participating in the lung cancer screening program. 07/05/2023 the patient is here for a pulmonary follow-up visit. The patient is feeling better from a respiratory status. She was treated for pneumonia. She completed the prednisone also couple antibiotics. She still complains of sinus congestion and postnasal drip. Sometimes she does have some degree of congestion that pulls in the back of the throat difficult to clear out. She has not using any nasal therapy right now. For her lungs she continues on the Trelegy. She has not had to use her rescue therapy. Unfortunately she continues to smoke cigarettes. The patient is participating in the lung cancer screening program at [facility]. She would like to stay there. She has not had a CAT scan more than a year. I did give her the number and also re- referred her to the [facility] lung cancer screening program. She knows to send me a report. Otherwise the patient follow-up in 4-6 months. 11/05/2023 the patient is here for a pulmonary follow-up visit. She does complaint of increasing sinus pressure. She does have increasing nasal drainage and congestion. Does complaint of a cough due to a postnasal drip. Moderate severity. Denies any fevers or chills. She continues use her respiratory therapy with good effect. She is also using the CPAP at nighttime with good effect. Unfortunately she still continues to smoke cigarettes. The patient is participating in the lung cancer screening program. This is a [facility]. She is not due to the spring. will go ahead and treat her for the sinusitis at this time. If she has persistent symptoms she will call for further recommendations. 01/05/2024 the patient is here for a pulmonary follow-up visit. The patient overall has been feeling sickly. She had been sick now for about a week. She started developing sore throat then she developed laryngitis. Then after that she started developing a croupy cough. It has been going on for about a week. It is bothering her sleep. Moderate severity. She has been using all inhalers with only minimal relief. She has used chvg-szi-obtklgc cough medications. The patient feels that she has been cough. Will go ahead and treat with azithromycin. She does have wheezing on exam with a very significant cough. Therefore, she also gets some prednisone. The patient also can use Tessalon Perles as needed. Her last imaging study was back in 07/24/2023 where she had a lung cancer screening CT scan at [facility]. We did review it was a rads 2. Therefore will hold off on any imaging right now. She will continue with current respiratory therapy and she needs to continue with smoking cessation. She will follow-up in 2-3 months. However, she is no better she will call for an earlier assessment. 06/01/2024 the patient is here for a pulmonary follow-up visit. Overall she is doing okay. She does complain of a postnasal drip. Moderate severity. Making her cough more. She is getting aggravated by periods not allow her to sleep comfortably. She has not been able to use her CPAP because of the postnasal drip in the cough. As far as respiratory symptoms she is doing okay otherwise. She is using her respiratory inhalers as prescribed. Unfortunately though she continues smoke cigarettes. She is not ready to quit. She is participating in the lung cancer screening program at [facility]. Apparently she did have a recent CT scan. Will requested it. For now will continue the current respiratory therapy and will start her on nasal sprays to minimize the upper airway cough syndrome. 01/25/2025 the patient is here for a pulmonary follow-up visit. She overall has been doing about the same. She unfortunately she continues to smoke cigarettes. She started having a cough. The cough has been worsening. This congested with phlegm. Moderate severity. Sometimes she sees some blood-tinged sputum. She is taking part of the lung cancer screening program at [facility]. Her last CT scan she had been back in the spring. Will request a copy. If she has not had 1 then will have to have 1 done for her. The patient is high risk for cancer. She has Trelegy for inhalers. She does not use it as prescribed. She also has a PAP machine for obstructive sleep apnea but she has not been using it regularly. She does have a nebulizer and rescue medicine that she can use as needed. [facility] Medical History (Updated 11/13/24 @ 21:21 by Felipe Lopez MD) Hemoptysis Sinusitis Screening for lung cancer SRIDEVI (obstructive sleep apnea) Bronchitis COPD exacerbation Tobacco dependence Chronic restrictive lung disease Asthma-COPD overlap syndrome Asthma Tobacco dependence Pulmonary nodules COPD (chronic obstructive pulmonary disease) Family History (Updated 04/02/20 @ 20:41 by Felipe Lopez MD) Other Asthma Social History Patient Tobacco Use Status: Current everyday Tobacco user Cigarettes Per Day: 3 Years Smoked: 30 years Review of Systems Const Reports difficulty sleeping, Denies fever(s), Denies night sweats and Reports snoring Eyes Denies change in vision ENT Denies change in voice, Denies lip swelling, Denies mouth pain, Reports nasal congestion (MILD), Reports nasal discharge (MILD), Denies neck pain, Reports post nasal drip, Denies sinus pain and Denies tongue swelling Card Denies chest pain, Denies irregular heart rhythm, Denies leg edema and Denies dyspnea Resp Reports chest congestion, Reports cough, Reports hemoptysis, Denies dyspnea, Reports snoring and Reports wheezing GI Denies abdominal pain Musc Denies no additional complaints and Denies neck pain Neuro Denies Neuro-related abnormal movements Psych Reports as per HPI Alvaro/Lymph Denies easy bleeding and Denies lymphadenopathy Aller/Immun Denies lip swelling, Denies tongue swelling and Reports wheezing Physical Exam Vital Signs: Last Vital Signs Pulse 71 01/25/25 10:55 BP 110/52 L 01/25/25 10:55 Pulse Ox 100 01/25/25 10:55 Oxygen Delivery Method Room Air 01/25/25 10:55 BMI result Body Mass Index 32.0 Const General: alert Orientation/consciousness: patient oriented x3 Neck Neck: Yes normal visual inspection, Yes full ROM and Yes no lymphadenopathy Chest Chest palpation & inspection: normal inspection of the chest Resp Effort & Inspection: normal respiratory effort Auscultation: diminished lung sounds Cardio Rate: regular rate Rhythm: regular rhythm Heart sounds: S1 normal heart sound present and S2 normal heart sound present GI Palpation (GI): Soft to palpation and nontender Auscultation: normal bowel sounds Skin General skin exam: rashes and/or lesions noted Neuro General: patient oriented x3 Assessment & Plan Assessment & Plan (1) Asthma-COPD overlap syndrome: Code(s): J44.9 - Chronic obstructive pulmonary disease, unspecified Category: Medical (2) Pulmonary nodules: Code(s): R91.8 - Other nonspecific abnormal finding of lung field Category: Medical (3) SRIDEVI (obstructive sleep apnea): Code(s): G47.33 - Obstructive sleep apnea (adult) (pediatric) Category: Medical (4) Tobacco dependence: Code(s): F17.200 - Nicotine dependence, unspecified, uncomplicated Category: Medical Plan Tobacco cessation continue Trelegy continue xopenex nebs BID continue Daliresp benzonates as needed for cough not using APAP due to post nasal drip, [id number] full face mask continue LDCT , [facility] 07/2025 Fluticasone nasal spray start Mucinex F/U 4-6 months Medications: New guaifenesin ER (Mucinex) 1,200 mg PO BID 30 tabs 4RF 15 days Coding Level of Care Code Est Pt Level 4 (15264) Complex EM visit Add On G2211 Diagnoses Asthma-COPD overlap syndrome J44.9 Pulmonary nodules R91.8 SRIDEVI (obstructive sleep apnea) G47.33 Tobacco dependence F17.200 Time Spent (min) 16
--- OUTSIDE RECORDS SUMMARY | 2025-01-25 13:13 | XMS_ITS | Encounter Summary ---
Author Organization [facility] Address [address] [place] [phone] Care Team Providers Care Chefs Name Role Phone Sarah Sebastian MD Primary Care Provider [phone] Reason for Visit * Reason Onset Date Comments Call from Insurance 01/17/2025 Diabetes - S tatin medication Encounter Details Date Type Department Care Team (Late st Contact Info) Description 01/17/2025 Telephone Internal Medicine - [place] [address] [place] [phone] Sarah Sebastian MD [address] [place] [phone] Social History Tobacco Use Types Packs/Day Years [...] as of this encounter Progress Notes * Ally Perez MA - 01/19/2025 1:35 PM EDT Spoke to patient and she stated she is taking statin which is atorvastatin 80mg. * Sarah Sebastian MD - 01/19/2025 11:38 AM EDT She seems to be on atorvastatin 80 mg, Ask the patient if she is taking it * Hazel Clarkieta - 01/17/2025 12:23 PM EDT Elvira with [employer] ([employer]), This patient has diabetes, and they are reported to not be on a statin medication. They are recommending patient to be on a statin medication to decrease cardiovascular risk. Please advise? CB# [phone] documented in this encounter Plan of Treatment Upcoming Encounters Date Type Department Care Team (Late st Contact Info) Description 02/07/2025 3:00 PM EST Procedure visit [facility] [address] [phone] Emilee Shen MD 175 [place] [address] 02/08/2025 8:00 AM EST Appointment [facility] [address] [place] [phone] Vasu Coyne MD [address] [address] 03/23/2025 8:30 AM EST Office Visit [facility] [address] [phone] Jessica Villalobos PA [address] [address] 04/03/2025 9:00 AM EST Office Visit Endocrinology [address] [phone] Bryanna Boateng MD [address] [place] [address] 06/14/2025 8:45 AM EDT Office Visit Internal Medicine - [place] 175 [facility] [address] [place] [phone] Sarah Sebastian MD 175 [facility] 200 [place] [phone] documented as of this encounter Goals Goal Patient Goal Type Associated Problems Recent Progress Patient-Stated? Author Autogenera prateek Goal Care Plan Autogenerated Problem No Leticia Powell documented as of this encounter Visit Diagnoses Diagnosis Stage 3a chronic kidney disease (CMS/HCC V24, CMS/HCC V28) documented in this encounter Additional Health Concerns Active Problems Noted Date Diagnosed Date Autogenerated Problem 01/10/2025 documented as of this encounter Care Teams Chefs Relationship Specialty Start Date End Date Sarah Sebastian MD 175 [facility] 200 [place] [phone] PCP - General Internal Medicine 03/14/24 documented as of this encounter
--- OUTSIDE RECORDS SUMMARY | 2025-01-25 13:13 | XMS_ITS | Clinical Summary ---
Author Organization [address] [place] [address] Address [address] [place] [address] Phone Care Team Providers Care Flash Drier Operator Name Role Phone Gilda Sebastian MD Primary Care Provider [phone] Allergies Active Allergy Reactions Criticality Noted Date [...] flash glucose scanning reader (FreeStyle [place] 2 [place]) misc 1 Device by Not Applicable route [...] TO 4 TIMES DAILY 03/24/20 18 Active LIDOCAINE TOP Apply topically 4 (four) [...] mouth 1 (one) time each day. Active DULoxetine (CYMBALTA) [address] capsule [...] mouth 2 (two) times a day. Active levalbuterol (XOPENEX HFA) 45 mcg/actuation inhaler [...] 1 (one) time each day. Active vitamins A,C,E-zinc-type copyist per (PreserVision AREDS) 4,296 mcg-226 mg-90 mg capsule Take 1 capsule by mouth 2 (two) times a day. Active FreeStyle [place] 2 Sensor kit USE DIRECTED TO TEST BLOOD SUGAR; CHANGE EVERY 14 DAYS 6 each 1 04/18/19 25 Active cyclobenzaprin e (FLEXERIL) 10 mg tablet Take 1 tablet (10 mg total) by mouth 3 (three) times a day if needed for muscle spasms. for muscle spasms 30 tablet 1 09/27/19 25 Active insulin glargine (Lantus Solostar U-100 Insulin) 100 unit/mL (3 mL) injection penIndications :Type 2 diabetes mellitus with other specified complication, with long-term current use of insulin ([facility] V24, [facility] V28) 12 units daily 15 mL 5 /27/20 25 Active semaglutide (Ozempic) 1 mg/dose (4 mg/3 mL) injection penIndications :Type 2 diabetes mellitus with other specified complication, with long-term current use of insulin ([facility] V24, [facility] V28) Inject 1 mg under the skin every 7 (seven) days. 9 mL 1 09/30/19 25 Active NovoLOG Flexpen U-100 Insulin 100 unit/mL (3 mL) injection penIndications :Type 2 diabetes mellitus with other specified complication, with long-term current use of insulin ([facility] V24, [facility] V28) INJECT 12 UNITS UNDER THE SKIN THREE TIMES DAILY BEFORE MEALS PER SLIDING SCALE; UP TO 40 UNITS EVERY DAY 45 mL 09/30/19 Active pen needle, diabetic 32 gauge x needleIndicati ons:Type 2 diabetes mellitus with other specified complication, with long-term current use of insulin ([facility] V24, [facility] V28) as directedUSE FOUR TIMES DAILY DIRECTED 300 each 09/30/19 25 Active plecanatide (TRULANCE) 3 mg tablet Take 1 tablet (3 mg total) by mouth 1 (one) time each day. 30 each 2 12/01/19 25 2024 Active tiZANidine (ZANAFLEX) 2 mg tablet 1 po qd PRN for neck spasm 20 tablet 1 12/21/19 25 Active famotidine (PEPCID) 40 mg tablet TAKE 1 TABLET BY MOUTH TWICE DAILY 180 tablet 01/10/20 25 Active topiramate (TOPAMAX) 50 mg tablet TAKE 1 TABLET BY MOUTH AT BEDTIME 90 tablet 2 01/10/20 25 Active flash glucose sensor (FreeStyle [place] 2 Sensor) kit USE TO CHECK BLOOD SUGARS CHANGE EVERY 14 DAYS 6 each 1 01/13/20 25 Active traMADol ER (ULTRAM-ER) 100 mg 24 hr tabletIndicati ons:Right ankle pain, unspecified chronicity,Astrid ulder blade pain Take 1 tablet (100 mg total) by mouth 1 (one) time each day if needed (pain) for up to 10 days. Do not crush, chew, or split. Max Daily Amount: 100 mg 10 tablet 01/19/20 25 2024 Active carisoprodoL (SOMA) 350 mg tabletIndicati ons:Insomnia, unspecified type Take 1 tablet (350 mg total) by mouth at bedtime. Max Daily Amount: 350 mg 30 tablet 01/19/20 25 Active dimenhyDRINATE (DRAMAMINE) 50 mg tabletIndicati ons:Dizziness Take 1 tablet (50 mg total) by mouth 1 (one) time each day if needed for dizziness. 30 tablet 01/19/20 25 2024 Active polyethylene glycol (Golytely) 236-22.74-6.74 -5.86 gram solution Take 4L by mouth once for one dose. May substitue any PEG. Starting at 2PM the day before your procedure drink 1 8oz glasses at your own pace until you complete half of the gallon. Finish 2nd half of the gallon at 8PM. 4000 mL 01/26/20 Active bisacodyL (DULCOLAX) 5 mg EC tablet Take 2 tablets by mouth right before beginning bowel prep. See instructions provided by the office 2 tablet 01/26/20 Active topiramate (TOPAMAX) 50 mg tablet TAKE 1 TABLET BY MOUTH AT BEDTIME 90 tablet 2 04/03/20 24 2024 Discontinued flash glucose sensor (FreeStyle [place] 2 Sensor) kit USE DIRECTED AND CHANGE EVERY 14 DAYS 6 each 1 04/18/19 25 2024 Discontinued famotidine (PEPCID) 40 mg tablet TAKE 1 TABLET BY MOUTH TWICE DAILY 180 tablet 09/30/19 25 2024 Discontinued carisoprodoL (SOMA) 350 mg tablet Take 1 tablet (350 mg total) by mouth at bedtime. Max Daily Amount: 350 mg 30 tablet 10/14/19 25 2024 Discontinued(R eorder) ubrogepant (Ubrelvy) 100 mg tablet Take 1 tablet (100 mg total) by mouth 1 (one) time. 2024 Discontinued(R eorder) ubrogepant (Ubrelvy) 100 mg tablet Take 1 tablet (100 mg total) by mouth 1 (one) time for 1 dose. 1 tablet 01/02/20 25 2024 Discontinued(R eorder) ubrogepant (Ubrelvy) 100 mg tablet Take 1 tablet (100 mg total) by mouth 1 (one) time for 1 dose. 1 tablet 01/09/20 25 2024 Discontinued(R eorder) ubrogepant (Ubrelvy) 100 mg tablet Take 1 tablet (100 mg total) by mouth 1 (one) time for 1 dose. 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 ([facility] V24, [facility] V28) 04/03/2024 Stage 3a chronic kidney disease ([facility] V24, [facility] V28) 04/03/2024 Chest pain 01/13/2022 Overview (02/14/2024): Last [...] vision impairment 02/02/2017 Asthma 01/24/2017 Chronic obstructive pulmonar y disease (COPD) ([facility] V24, [facility] V28) 01/24/2017 Irritable bowel syndrome 01/07/2017 Diabetes mellitus type 2, un complicated ([facility] V24, [facility] V28) 11/02/2016 Hypercholesterolemia 11/02/2016 Osteopenia 11/02/2016 Hypertension 05/06/2016 [...] Encounters Date Type Department Care Team Description 01/18/2025 8:30 AM EDT Office Visit Internal Medicine [facility] 175 [facility] [address] [place] [phone] Tyrell Li NP Shoulder blade pain (Primary Dx); Right ankle pain, unspecified chronicity; Cervical pain; Insomnia, unspecified type; Dizziness; Healthcare maintenance 01/17/2025 Telephone Internal Medicine [facility] 175 [facility] [address] [place] [address] Gilda Sebastian MD 01/03/2025 Telephone Internal [facility] 175 [facility] [address] [place] [address] Gilda Sebastian MD 01/03/2025 Telephone Internal [facility] 175 [facility] [address] [place] [address] Gilda Sebastian MD 01/03/2025 Telephone Internal [facility] 175 [facility] [address] [place] [address] Gilda Sebastian MD 12/21/2024 Telephone Internal [facility] 175 [facility] [address] [place] [address] Gilda Sebastian MD 12/21/2024 Telephone Internal [facility] 175 [facility] [address] [place] [address] Gilda Sebastian MD 12/20/2024 8:30 AM EDT Office Visit [facility] 175 [facility] [address] [place] [phone] Jessica Villalobos PA Migraine without aura and without status migrainosus, not intractable (Primary Dx) 12/18/2024 Telephone [facility] [place] [address] [place] [address] Provider, Not In System 12/05/2024 Telephone Internal [facility] 175 [facility] [address] [place] [phone] Gilda Sebastian MD 11/30/2024 10:10 AM EDT Office Visit Gastroenterology [facility] 175 [facility] 175 [facility] [address] [place] [phone] Yashira Sullivan PA Epigastric pain (Primary Dx); Gastroesophageal reflux disease without esophagitis; BRBPR (bright red blood per rectum) 11/30/2024 Telephone Gastroenterology [facility] 175 [facility] 175 [facility] [address] [place] [phone] Yashira Sullivan PA 11/10/2024 Telephone Internal Medicine - [place] [address] [phone] Gilda Sebastian MD 11/10/2024 Telephone Internal Medicine [facility] [address] [phone] Gilda Sebastian MD from Last 3 Months Immunizations Immunization Administration Dates Next Due Influenza Quadravalent, MDCK , 0.5ml, preservative free (Flucelvax) 6mo and older 03/30/2018 Influenza trivalent, 0.5mL (Fluad) 65yo and olde r 01/18/2025,02/10/2023 Influenza trivalent, 0.5mL, preservative free (Fluarix; FluLaval; Fluzone) ages 6mo and older (Afluria) 3 years and older 01/15/2017 Surgical History Surgery Date Site/Laterality Comments HYSTERECTOMY PROCEDURE: HISTORICAL HYSTERECTOMY APPENDECTOMY PROCEDURE: HISTORICAL APPENDECTOMY CARPAL TUNNEL RELEASE Bilateral PROCEDURE: HISTORICAL CARPAL TUNNEL REL BREAST SURGERY Bilateral PROCEDURE: LA UNLISTED PROCEDURE BREAST Medical History Medical History Date Comments Diabetes mellitus type 2, un complicated ([facility] V24, [facility] V28) 11/02/2016 DX:Diabetes mellitus type 2 , uncomplicated ([facility]) Anxiety 02/07/2013 DX:Anxiety Asthma 01/24/2017 DX:Asthma Edema [...] impairment Chronic obstructive pulmonar y disease (COPD) ([facility] V24, [facility] V28) 01/24/2017 DX:Chronic obstructi ve pulmonary disease (COPD) ([facility]) Dry eyes 02/02/2017 DX:Dry eyes Obstructive sleep [...] Sign Reading Time Taken Comments Blood Pressure 112/52 01/18/2025 8:21 AM EDT Pulse 76 01/18/2025 8:21 AM EDT Temperature 36.3 C (97.3 F) 01/18/2025 8:21 AM EDT Respiratory Rate 15 09/29/2024 8:56 AM EDT Oxygen Saturation 97% 01/18/2025 8:21 AM EDT Inhaled Oxygen Concentration - - Weight 83.1 kg (183 lb 3.2 oz) 01/18/2025 8:21 A M EDT Height 162.6 cm (5' 4 ) 01/18/2025 8:21 AM EDT Body Mass Index 31.45 01/18/2025 8:21 AM EDT Plan of Treatment Upcoming Encounters Date Type Department Care Team (Late st Contact Info) Description 02/07/2025 3:00 PM EST Procedure visit [facility] [address] [phone] Emilee Shen MD 175 [place] [address] 02/08/2025 8:00 AM EST Appointment [facility] [address] [place] [phone] Vasu Coyne MD [address] [address] 03/23/2025 8:30 AM EST Office Visit [facility] [address] [phone] Jessica Villalobos PA [address] [address] 04/03/2025 9:00 AM EST Office Visit Endocrinology [address] [phone] Bryanna Boateng MD [address] [place] [address] 06/14/2025 8:45 AM EDT Office Visit Internal Medicine - [address] [phone] Gilda Sebastian MD [address] [phone] Health Maintenance Due Date Last Done Comments Diabetes: Annual Foot Exam 11/10/1963 Diabetes: Annual Retina Eye Exam 11/10/1963 RSV Immunization Adult Patients (1 - Risk 50-74 years 1-dose series) 11/10/2003 Falls Risk Assessment 03/08/2022 Hepatitis C Screening 03/08/2022 Osteoporosis Screening (Bone Density Screening) 03/08/2022 Social Influencers of Health Screening 03/08/2022 Diabetes: Annual Urine Albumin-Creatinine Ratio (uACR) 03/20/2022 04/29/2020 DTaP,Tdap,and Td Vaccines (3 - Td or Tdap) 06/03/2022 06/03/2012, 07/31/2010 Diabetes: Blood Sugar Control Test (HGBA1C) 08/11/2023 02/10/2023, 01/14/2021 Depression Screening 04/05/2024 07/13/2023 Medicare Annual Wellness Visit 07/12/2024 07/13/2023 COVID-19 Vaccine ( season) 2024 03/19/2021, 09/19/2020, 08/22/2020 Diabetes: Annual GFR (Glomerular Filtration Rate) 09/04/2025 09/04/2024, 10/13/2021 Hypertension/CHF/CAD Annual BMP Blood Test 09/04/2025 09/04/2024, 10/13/2021 Breast Cancer Screening 01/02/2026 01/03/20 24, 12/31/2022, 11/19/2021, Additional history exists Cholesterol Screening (Lipid Panel) 02/11/2028 02/10/2023 Colorectal Cancer Screening: Colonoscopy 06/04/2031 06/03/2021 Zoster Vaccines Completed 04/15/2021, 01/04, 10/03/2014 Pneumococcal Vaccine: 50+ Years Completed 03/03/2022, 01/23/2021, 01/18/2009, Additional history exists Influenza Vaccine Completed 01/18/2025, , 03/05/2023, Additional history exists HIB Vaccines Aged Out No longer eligi ble based on patient's age to complete this topic HPV Vaccines Aged Out No longer eligi ble based on patient's age to complete this topic Hepatitis A Vaccines Aged Out No long er eligible [...] age to complete this topic Meningococcal B Vaccine Aged Out No l onger eligible based on patient's age to complete this topic RSV Immunization Patients Under 20 months Aged Out No longer eligible based on patient's age to complete this topic Varicella Vaccines Aged Out No longer eligible based on patient's age to complete this topic Goals Goal Patient Goal Type Associated Problems Recent Progress Patient-Stated? Author Autogenera prateek Goal Care Plan Autogenerated Problem No Leticia Powell Procedures Procedure Name Priority Date/Time Associated Diagnosis Comments CREATININE, SERUM Routine 09/04/2024 10: 54 AM EDT Migraine without aura and without status migrainosus, not intractable TYRONE SCREENING DIGITAL Routine 01/03/2024 11:41 AM EDT HM DEPRESSION SCREENING Routine 07/13/2023 HEMOGLOBIN A1C Routine 02/10/2023 LIPID PANEL Routine 02/10/2023 COLONOSCOPY Routine 06/03/2021 URINE ALBUMIN CREATININE RATIO Routine 04/29/2020 from Last 3 Months or Most Recently Relevant to Health Maintenance Results * (ABNORMAL) Creatinine (09/04/2024 10:54 AM EDT) Creatinine 1.46(H) 0.50 - 1.10 mg/dL LAB CHEMISTRY METHOD 09/04/2024 4:11 PM EDT [facility] eGFR 39(L) >=60 mL/min/1. 73m2 LAB CHEMISTRY METHOD 09/04/2024 4:11 PM EDT [facility] Comment:Calculation based on the Chronic Kidney Disease Epidemiology Collaboration (CKD-EPI) equation refit without adjustment for race. Blood Venous blood specimen / Unknown Venipuncture / Unknown 09/04/2024 10:54 AM EDT 09/04/2024 10:54 AM EDT Emilee Shen MD LAB BLOOD ORDERABLES Fin al Result [facility] [address] [place] [address], * [facility] SCREENING DIGITAL (01/03/2024 11:41 AM EDT) Anatomical Region Laterality Modality Mammography 01/03/2024 8:11 AM EDT Narrative 01/03/2024 11:41 AM EDT [facility] Diagnostic Imaging Department [address] [place] [address] Patient: PORTILLO JEFFERY./Age/Sex: 1955 - 68 - F Unit#: [id number] Location/Status: [facility] Mnemonic/Ordering Site: [facility] Ordering Physician: GILDA SEBASTIAN MD [place] Screening Digital - 01/03/24 - 0835 Report Status:Signed EXAM: [facility] Screening Digital EXAM DATE AND TIME: 01/03/2024 8:45 AM HISTORY: Screening. Excisional biopsy of the right breast in 1998, pathology benign. COMPARISON: 12/31/22, 11/19/21, 06/07/20, and earlier studies dating back to 2013. TECHNIQUE: Bilateral digital breast tomosynthesis was performed in the and O projections. Computer aided detection with DATYD Vehrity 3D 3.1 was employed. TISSUE DENSITY: b. [...] appearance of the breasts. No evidence of malignancy is seen. A negative mammogram in the presence of a clinically suspicious palpable abnormality does not preclude the possibility of malignancy or alter the indications for biopsy. BI-RADS: Category 2: Benign RECOMMENDATION(S): 1: Routine screening mammogram BILATERAL in 1 year. Mammogram performed at [facility] [place] [address] Dictating Physician: ASHLEY MALONE MD Electronically Signed by: ASHLEY MALONE MD Dic Date/Time: 01/03/24 1139 Sign date/Time: 01/03/24 1141 Procedure Note Ashley Malone MD - 01/19/2024 [facility] Diagnostic Imaging Department [address] [place] [address] Patient: PORTILLO JEFFERY/Age/Sex: 1955 - 68 - F Unit#: [id number] Location/Status: [facility] Mnemonic/Ordering Site: [facility] Ordering Physician: GILDA SEBASTIAN MD [facility] Screening Digital - 01/03/24 - 0839 Report Status:Signed EXAM: [facility] Screening Digital EXAM DATE AND TIME: 01/03/2024 8:45 AM HISTORY: Screening. Excisional biopsy of the right breast in 1998,pathology benign. COMPARISON: 12/31/22, 11/19/21, 06/07/20, and earlier studies dating back kg2199. TECHNIQUE: Bilateral digital breast tomosynthesis was performed in the CCand MLO projections. Computer aided detection with 8020select 3D 3.1was employed. TISSUE DENSITY: b. There [...] Mammogram performed at [facility] [place] [address] Dictating Physician: ASHLEY MALONE MD Electronically Signed by: ASHLEY MALONE MD Dic Date/Time: 01/03/24 1139 Sign date/Time: 01/03/24 1141 Gilda Sebastian MD IMG BI PROCEDURES Final Result * Depression Screening (07/13/2023) Depression Screening Abstracted Historical Provider HEALTH MAINTENANCE Final Result * (ABNORMAL) Hemoglobin A1c (02/10/2023) Hemoglobin A1C 7.5(A) <=6.5 % Blood Venous blood specimen / Unknown [facility] Provider LAB BLOOD ORDERABLES Gertrudis l Result * (ABNORMAL) Lipid panel (02/10/2023) Pathologist [facility] LDL/HDL Ratio 3 0 - 4 Triglycerides 153(A) 0 - 150 mg/dL Cholesterol 148 0 - 200 mg/dL HDL 52 >=40 mg/dL LDL Cholesterol 66 0 - 100 mg/dL Blood Venous blood specimen / Unknown Result [facility] Provider LAB BLOOD ORDERABLES Gertrudis l Result * Colonoscopy (06/03/2021) Pathologist [facility] Colonoscopy No interpretation , abstracted Anatomical Region Laterality Modality Other [facility] Provider HEALTH MAINTENANCE Final Result * Urine Albumin Creatinine Ratio (04/29/2020) Pathologist [facility] Urine Albumin Creatinine Ratio Abstracted [facility] Provider HEALTH MAINTENANCE Final Result from Last 3 Months or Most Recently Relevant to Health Maintenance Additional Health Concerns Active Problems Noted Date Diagnosed Date Autogenerated Problem 01/10/2025 Insurance [employer] MEDICARE ADVANT[place]ICAID [place] Advance Directives Documents on File Type Date Recorded Patient [place]er Expl anation Health Care Decision (hx) 05/26/2019 [...] (hx) 05/26/2019 AD DAVIS DIRECTIVE Care Teams Flash Drier Operator Relationship Specialty Start Date End Date Gilda Sebastian MD [address] [phone] PCP - General Internal Medicine 03/14/24
--- OUTSIDE RECORDS SUMMARY | 2025-01-25 13:13 | XMS_ITS | Clinical Summary ---
Author Organization [facility] Address [address] [place] [address] Phone Care Team Providers Care Pneumatic Jacketer Name Role Phone Sarah Sebastian MD Primary Care Provider [phone] Allergies Active Allergy Reactions Criticality Noted Date [...] 11/22/2020 Chronic obstructive pulmonary disease 11/22/2020 11/25/2020 Encounters Date Type Department Care Team Description 12/21/2024 Orders Only [facility] [address] [phone] Germania Pedraza Diabetes mellitus, not otherwise specified (HCC) (Primary Dx); Stage 3a chronic kidney disease (HCC); Dyslipidemia 12/21/2024 Orders Only [facility] [address] [phone] Ambrose Rush from Last 3 Months Immunizations Immunization Administration [...] Care Team (Late st Contact Info) Description 02/14/2025 9:20 AM EST Office Visit [facility] [address] [phone] Brice Don MD [address] [phone] Health Maintenance Due Date Last Done Comments Breast Cancer Screening 1955 Colorectal Cancer Screening: Annual FOBT 2002 Colorectal Cancer Screening: Colonoscopy 2002 Colorectal Cancer Screening: Sigmoidoscopy 2002 Pneumococcal Vaccine: 50+ Years (2 of 2 - PCV) 01/18/2010 01/18/2009 Diabetes: Ophthalmology Exam 11/22/2020 Diabetes: Pedal Pulse Checked 11/22/2020 Diabetes: Sensory Foot Exam 11/22/2020 Diabetes: Visual Foot Exam 11/22/2020 Diabetes: Hemoglobin A1C 05/13/2023 02/10/2023, 01/03 Influenza Vaccine Completed 01/18/2025, , 03/30/2018, Additional history exists Hepatitis B Vaccine Aged Out No longe [...] EDT) Glycated Hemoglobin 7.3(H) <6.5 % [facility] (MEDICITY) Estimated Average Glucose 163 mg/dL [facility] (MEDICITY) Performing Lab Performing Lab(H) [facility] ([facility]) Comment: [employer], a member of [address] [address] Landscape Architecture Professor - Tash Su MD Blood specimen (specimen) Venous blood / Unknown 01/14/2021 1:36 PM EDT 01/14/2021 1:36 PM EDT us Brice Don MD LAB BLOOD ORDERABLES Final Re sult [facility] ([facility]) from Last 3 Months or Most Recently Relevant to Health Maintenance Insurance [facility] [employer] 1,2,3 (VACCN) [facility] [employer] 1,2,3 (VACCN) Care Teams Pneumatic Jacketer Relationship Specialty Start Date End Date Sarah Sebastian MD 175 [facility] [address] [place] [address] PCP - General Internal Medicine 06/08/22
== END 2025-01-25 11:24 | disposition home or self-care (01) ==
LOC: HO.HPS 10:48
PROVIDERS: PCP Internal Medicine; Visit Provider Hospitalist
DX: J44.9 Chronic obstructive pulmonary disease, unspecified (principal); R91.8 Other nonspecific abnormal finding of lung field; G47.33 Obstructive sleep apnea (adult) (pediatric); F17.200 Nicotine dependence, unspecified, uncomplicated
CPT/HCPCS: 99214; G2211

== ENCOUNTER → 2025-01-25 10:47 | Outpatient (BNVA) | payer MEDICARE, OTHER, MEDICAID, SELFPAY | PROVIDERS: PCP Internal Medicine; Visit Provider Hospitalist | DX: J44.9 Chronic obstructive pulmonary disease, unspecified (principal); G47.33 Obstructive sleep apnea (adult) (pediatric); R91.8 Other nonspecific abnormal finding of lung field; F17.200 Nicotine dependence, unspecified, uncomplicated | CPT/HCPCS: 99212 ==